=== PATIENT | male | born 2000 | race Asian ===

== ENCOUNTER 2022-04-11 04:00 | Inpatient (IN) | payer OTHER ==
[~2022-04-11] VITALS: Ht 152.4 cm; Wt 38.6 kg
[2022-04-11] VITALS (9 sets, daily range): BP systolic 104–141; BP diastolic 50–92
[~2022-04-11 04:00] MED LIST: BACL20TA4 GT; BEN50 GT; BISA-213 RC; CRAN450T5 GT; DIAZ5TAB8 GT; LEVO750T75 NG; MAGN400S60 PO; MERO1PIG IV; MIRABULK PO; MONT10TA35 GT; MULT9LIQ2 GT; OSC500 GT; ROB1 GT; SCOP0.333 TP; SIME80TA22 GT
--- NOTE | 2022-04-11 04:01 | NUR ---
BIBA TO BED #1
[2022-04-11] MEDS ORDERED: NACL 0.9% 1,000 ML IV SCH ×2 (04:15→05:35)
[2022-04-11] MEDS ORDERED: NACL 0.9% 1,000 ML IV ONE ×2 (04:15→10:30)
[2022-04-11] MEDS ORDERED: VANCOMYCIN 1,000 MG in DEXTROSE 5% 250 ML IV ONE (04:15)
[2022-04-11] MEDS ORDERED: PIPERACILLIN/TAZOBACTAM 3.375 GM in DEXTROSE 5% 50 ML IV ONE (04:15)
[2022-04-11] MEDS ORDERED: IBUPROFEN CHILDRENS 100 MG/5 ML UDC GT ONE (04:15)
--- NOTE | 2022-04-11 04:15 | NUR ---
DIMAS FROM [facility] C/O RAPID HR. PT WITH EXTENSIVE PMH ON VENT TO TRACH, G-TUBE IN PLACE. SKIN IS HOT TO TOUCH. MEDHX- TRACH TO VENT, ALLX- SULFA
--- NOTE | 2022-04-11 04:30 | NUR ---
20G IV ESTABLISHED RLE, LABS AND BLOOD CULTURES DRAWN.
[2022-04-11] MEDS ORDERED: ACETAMINOPHEN 650 MG SUPP RC ONE (04:55)
[2022-04-11] MEDS ORDERED: VANCOMYCIN 1,000 MG VIAL ONE (04:57)
[2022-04-11] MEDS ORDERED: PIPERACILLIN/TAZOBACTAM 3.375 GM VIAL IV ONE (04:58)
--- NOTE | 2022-04-11 04:58 | NUR ---
0402 PLACED PATIENT ON CARESCAPE VENT.ON AC MODE RR14 VT 400 PEEP 5 FIO2 28%. TRACH CARE DONE. PATIENT HAS A SIZE PORTEX 6 . NO SECRETIONS WHEN SXNED. ABG DRAWN. SEE RESULTS. NO CHANGES MADE ON VENT POST ABG
[2022-04-11 05:14] LABS: BASOPHILS % (AUTO) 0.4 % (0.0-2.0); EOSINOPHILS % (AUTO) 0.1 % (0.0-4.0); HEMATOCRIT 42.1 % (36-52); HEMOGLOBIN 14.1 g/dL (12.0-18.0); LYMPHOCYTES # (AUTO) 0.7 K/uL (2.0-11.5); LYMPHOCYTES % (AUTO) 10.3 % (20.5-51.1); MEAN CORPUSCULAR HEMOGLOBIN 33 pg (27-31); MEAN CORPUSCULAR HGB CONC 34 g/dL (33-37); MEAN CORPUSCULAR VOLUME 97.3 fL (80-94); MONOCYTES # (AUTO) 0.6 K/uL (0.8-1.0); MONOCYTES % (AUTO) 8.3 % (1.7-9.3); NEUTROPHILS # (AUTO) 5.5 K/uL (1.8-7.7); NEUTROPHILS % (AUTO) 80.9 % (42.2-75.2); PLATELET COUNT (AUTO) 465 K/uL (140-450); RED BLOOD CELL COUNT(AUTO) 4.33 MIL/uL (4.20-6.10); RED CELL DISTRIBUTION WIDTH 12.9 % (11.6-13.7); WHITE BLOOD COUNT (AUTO) 6.8 K/uL (4.8-10.8)
--- NOTE | 2022-04-11 05:30 | NUR ---
F/C INSERTED WITHOUT DIFFICULTY WITH IMMEDIATE RETURN MARINA COLORED URINE. URINE OBTAINED AND SENT TO LAB.
[2022-04-11] MEDS ORDERED: LORazepam 2 MG/ML VIAL IVP ONE (05:35)
[2022-04-11 05:41] LABS: PROTHROMBIN TIME 10.8 secs (10.8-13.4)
[2022-04-11 05:49] LABS: ALBUMIN 3.3 g/dL (3.4-5.0); ANION GAP 17.2 (8-16); CARBON DIOXIDE 26.6 mmol/L (21-32); POTASSIUM 3.8 mmol/L (3.5-5.1); TOTAL BILIRUBIN 0.4 mg/dL (0.0-1.0)
[2022-04-11 06:17] LABS: FREE T4 (FREE THYROXINE) 1.47 ng/dL (0.76-1.46); THYROID STIMULATING HORMONE 0.21 uIU/mL (0.34-3.74)
[2022-04-11 06:23] LABS: CKMB RELATIVE INDEX 0.3 (0.0-2.5); CREATINE KINASE MB 1.7 ng/mL (0-3.6)
[2022-04-11 06:31] LABS: APPEARANCE,URINE CLEAR (CLEAR); BILIRUBIN,URINE NEGATIVE (NEGATIVE); BLOOD, URINE TRACE-I (NEGATIVE); COLOR,URINE YELLOW (YELLOW); LEUKOCYTE ESTERASE ,URINE NEGATIVE (NEGATIVE); NITRITE, URINE NEGATIVE (NEGATIVE); UGLUCOSE NEGATIVE (NEGATIVE)
[2022-04-11 06:47] LABS: RBC,URINE 0-5 /HPF (0-5)
--- NOTE | 2022-04-11 06:47 | NUR ---
SPOKE WITH PTS MOTHER AND UPDATE GIVEN. SHE STATES SHE WILL NOT BE ABLE TO COME AND SEE HIM UNTIL TOMORROW.
[2022-04-11 06:48] LABS: HYALINE CASTS, URINE 0-3 /LPF (None Seen)
[2022-04-11] MEDS ORDERED: VANCOMYCIN PER PHARMACY MC PRN ×2 (07:20→11:10)
--- NOTE | 2022-04-11 07:44 | NUR ---
PT ON A VENT, RR 40S, O2 SAT 97% AT 28%, PEEP 8, PT CONSTANTLY MOVING, HR 140-160s, iv patent rle, lfa, sr up times2, will go to icu 4
--- NOTE | 2022-04-11 08:15 | NUR ---
RECEIVED BEDSIDE REPORT FROM EVELYN DE SANTIAGO RN. PT A&O X4. TRACH TO VENT FIO2 28%, VT 400, RR 14, PEEP 5. ST ON MONITOR 153. TEMP 103..4. G TUBE IN PLACE, CLAMPED. ROMERO IN PLCE TO GRAVITY, URINE CLEAR AND YELLOW. IV TO RT FOREARM 22G. LT FOREARM 20 G. RT LOWER LEG 22G. ALL SALINE LOCKED. SKIN INTACT, BILATERAL HEEL REDNESS. HOB ELEVATED, BED TO LOWEST POSITION, CALL LIGHT WITHIN REACH, WILL CONTINUE TO MONITOR.
--- NOTE | 2022-04-11 08:26 | NUR ---
barrett in place, urinary output 650 clear yellow urine
[2022-04-11] MEDS ORDERED: VANCOMYCIN 1,000 MG in DEXTROSE 5% 250 ML IV SCH (09:00)
[2022-04-11] MEDS ORDERED: ENOXAPARIN 40 MG/0.4 ML SYR SUBQ SCH (09:00)
[2022-04-11] MEDS: ENOXAPARIN 40 MG/0.4 ML SYR SUBQ SCH (09:17)
--- NOTE | 2022-04-11 10:00 | NUR ---
SEEN AND EXAMINED BY DR WILSON. UPDATED PT INFORMATION. ORDERED 1L NS BOLUS, CHEMISTRY PANEL 7, REPEAT LACTIC ACID.
[2022-04-11] MEDS: ACETAMINOPHEN 650 MG/20.3 ML UDC GT PRN (10:30)
[2022-04-11 10:52] LABS: ANION GAP 17.4 (8-16); CARBON DIOXIDE 21.7 mmol/L (21-32); CREATININE 0.8 mg/dL (0.6-1.3); POTASSIUM 3.1 mmol/L (3.5-5.1)
--- NOTE | 2022-04-11 11:10 | NUR ---
SEEN AND EXAMINED BY DR ROSE. UPDATED PT INFORMATION.
--- NOTE | 2022-04-11 11:12 | NUR ---
REPORTED CRITICAL LAB TO DR WILSON. SODIUM 161, POTASSIUM 3.1.
[2022-04-11] MEDS: FLUCONAZOLE 200 MG/NS PREMIX 100 ML IV SCH (11:47)
--- NOTE | 2022-04-11 13:15 | NUR ---
SEEN AND EXAMINED BY DR JOEDA. UPDATED PT INFORMATION. NO NEW ORDER.
[2022-04-11] MEDS: MEROPENEM 1,000 MG in NACL 0.9% 50 ML IV SCH ×2 (13:58→21:52)
--- NOTE | 2022-04-11 14:08 | NUR ---
RECEIVED DR STEVE LAW. ORDERED D/C NS, START D5 AT 100MLS/HR. Q4H CMP FOR AT LEAST 1 DAY. POTASSIUM CHLORIDE 20% LIQUID 40MEQ.
[2022-04-11] MEDS ORDERED: POTASSIUM CHLORIDE 20% 40 MEQ/15 ML UDC GT SCH (14:18)
[2022-04-11] MEDS: DEXTROSE 5% 1,000 ML IV SCH (14:25)
--- NOTE | 2022-04-11 17:30 | NUR ---
PT IN BED SEMI RELAX PT HR TACHY DUE TO PT HAVING A FEVER NO SOB NOTED MAINTAIN OXYGENATION AND VENTILATION ABOVE 92% WILL CONT TO MONITOR
[2022-04-11] MEDS: VANCOMYCIN 500 MG in DEXTROSE 5% 100 ML IV SCH ×2 (18:10→21:02)
--- NOTE | 2022-04-11 18:57 | NUR ---
PT SPO2 100% ON 28% FiO2. TITRATED FiO2 FROM 28% TO 25%. CURRENT SPO2 100%. PT TOLERATING WELL AT THIS TIME. NO RESPIRATORY DISTRESS NOTED AT THIS TIME. WILL CONTINUE TO MONITOR PT.
--- NOTE | 2022-04-11 18:59 | NUR ---
RECEIVED REPORT FROM AM SHIFT. PATIENT WAS SEEN AND ASSESSED. PATIENT IS TRACH WITH PORTEX SIZE 6 AND SECURED WITH TRACH TIE. PATIENT IS ON VENTILATOR SUPPORT. VENTILATOR PLUGGED IN RED OUTLET. VENTILATOR ALARMS SET APPROPRIATELY AND AUDIBLE TO ENVIRONMENT. AMBU BAG AT BEDSIDE. HEAD OF BED GREATER THAN 30 DEGREES. NOTICED ADEQUATE BILATERAL CHEST RISE AND FALL. PATIENT IS IN NO RESPIRATORY DISTRESS AT THIS TIME. VENT SETTINGS: AC/VC RR 14, VT 400, PEEP 5, FiO2 25% WITH SPO2 OF 100%. BILATERAL BREATH SOUNDS ON AUSCULTATION : UPPER LOBES: COARSE LOWER LOBES: COARSE. SUCTION: SMALL AMOUNT OF WHITE/YELLOW THICK SECRETIONS FROM TRACH TUBE AND SMALL WHITE THIN ORALLY.
--- NOTE | 2022-04-11 19:24 | NUR ---
ENDORSED TO CARTON WRAPPER PEPPI RN FOR CONTINUITY OF CARE. ALL QUESTIONS ANSWERED.
[2022-04-11] MEDS ORDERED: MEROPENEM 1,000 MG VIAL IV ONE (21:47)
[2022-04-12] VITALS (16 sets, daily range): BP systolic 103–142; BP diastolic 58–109
[2022-04-12 00:21] LABS: ALBUMIN 2.9 g/dL (3.4-5.0); ANION GAP 6.5 (8-16); CARBON DIOXIDE 29.5 mmol/L (21-32); CREATININE 0.5 mg/dL (0.6-1.3); TOTAL BILIRUBIN 0.9 mg/dL (0.0-1.0)
[2022-04-12] MEDS: ACETAMINOPHEN 650 MG/20.3 ML UDC GT PRN ×2 (01:15→14:43)
[2022-04-12] MEDS: DEXTROSE 5% 1,000 ML IV SCH (01:23)
[2022-04-12] MEDS ORDERED: KCL 20 MEQ/WATER INJ PREMIX 200 ML IV ONE (03:41)
[2022-04-12] MEDS: KCL 20 MEQ/WATER INJ PREMIX 200 ML IV SCH ×2 (03:45→06:57)
[2022-04-12 05:57] LABS: ANION GAP 11.7 (8-16); CARBON DIOXIDE 29.7 mmol/L (21-32); CREATININE 0.6 mg/dL (0.6-1.3); POTASSIUM 3.4 mmol/L (3.5-5.1)
--- NOTE | 2022-04-12 07:15 | NUR ---
RECEIVED BEDSIDE REPORT FROM FASHION BUYING INTERNSHIP PEPPI. AWAKE. RESPOND TO NAME. AC VC FIO2 25%, VT 400, RR 14, PEEP 5. ST MONITOR. TEMP 99.5, PULSE 112, BP 127/84, RR 25, O2 93%. IV TO RT LOWER LEG 22G, RUNNING KCL @ 50MLS/HR, REDNESS, SWELLING ON THE IV SITE. NPO. ROMERO IN PLACE TO GRAVITY, URINE CLEAR AND YELLOW. GENERALIZED WEAKNESS, BEDREST, HOB ELEVATED, BED TO LOW POSITION. CALL LIGHT WITHIN REACH. WILL CONTINUE TO MONITOR.
[2022-04-12] MEDS: VANCOMYCIN 500 MG in DEXTROSE 5% 100 ML IV SCH ×2 (08:00→16:24)
[2022-04-12] MEDS: ENOXAPARIN 40 MG/0.4 ML SYR SUBQ SCH (08:23)
[2022-04-12 08:55] LABS: BASOPHILS % (AUTO) 0.4 % (0.0-2.0); EOSINOPHILS % (AUTO) 0.5 % (0.0-4.0); HEMATOCRIT 37.6 % (36-52); HEMOGLOBIN 12.7 g/dL (12.0-18.0); LYMPHOCYTES # (AUTO) 2.7 K/uL (2.0-11.5); LYMPHOCYTES % (AUTO) 35.4 % (20.5-51.1); MEAN CORPUSCULAR HEMOGLOBIN 33 pg (27-31); MEAN CORPUSCULAR HGB CONC 34 g/dL (33-37); MEAN CORPUSCULAR VOLUME 96.6 fL (80-94); MONOCYTES % (AUTO) 12.8 % (1.7-9.3); NEUTROPHILS # (AUTO) 3.9 K/uL (1.8-7.7); NEUTROPHILS % (AUTO) 50.9 % (42.2-75.2); PLATELET COUNT (AUTO) 316 K/uL (140-450); RED BLOOD CELL COUNT(AUTO) 3.89 MIL/uL (4.20-6.10); RED CELL DISTRIBUTION WIDTH 12.8 % (11.6-13.7); WHITE BLOOD COUNT (AUTO) 7.7 K/uL (4.8-10.8)
[2022-04-12] MEDS: MEROPENEM 1,000 MG in NACL 0.9% 50 ML IV SCH ×3 (09:13→21:49)
--- NOTE | 2022-04-12 09:14 | NUR ---
PATIENT HAS BEEN SCREENED AND CATEGORIZED HIGH NUTRITION RISK. PATIENT WILL BE SEEN WITHIN 1-2 DAYS OF ADMISSION. 04/11/22-04/13/[address] REFERRAL RECEIVED FOR TF PATIENT.
[2022-04-12 09:15] LABS: ANION GAP 12.5 (8-16); CARBON DIOXIDE 29.2 mmol/L (21-32); CREATININE 0.5 mg/dL (0.6-1.3); POTASSIUM 3.7 mmol/L (3.5-5.1)
[2022-04-12] MEDS: FLUCONAZOLE 200 MG/NS PREMIX 100 ML IV SCH (10:39)
--- NOTE | 2022-04-12 11:07 | NUR ---
04/12/2022 RD INITIAL ASSESSMENT COMPLETED.PLEASE REFER TO NUTRITION ASSESSMENT UNDER CARE ACTIVITY FOR ESTIMATED NUTRITIONAL NEEDS. 1.WHEN/IF MEDICALLY APPROPRIATE, RECOMMEND VITAL AF 1.2 KENDRA WITH A GOAL RATE OF 50ML/HR -FWF 100ML Q8H -START AT 20 ML/HR AND INCREASE BY 20 ML Q4H PT TOLERATES UNTIL GOAL RATE IS REACHED. THIS WILL PROVIDE 1440 KCAL, 90 G PROTEIN, AND 1200ML VOLUME (973 ML FREE WATER) MEETING 100% OF PTS ESTIMATED ENERGY NEEDS; ADEQUATE. 2.MONITOR FOR GASTRIC RESIDUALS 3.RD TO FOLLOW-UP IN 2-3 DAYS PATIENT IS HIGH RISK. JOSE A JEAN RD
--- NOTE | 2022-04-12 13:17 | NUR ---
RD SPOKE WITH BOBBY RAMIREZ WITH TF RECOMMENDATION FOR VITAL AF 1.[address] ASKED WHO SAID IT WAS OKAY TO START ON VITAL AF 1.2.
[2022-04-12 13:23] LABS: ALBUMIN 3.2 g/dL (3.4-5.0); CARBON DIOXIDE 29.5 mmol/L (21-32); CREATININE 0.5 mg/dL (0.6-1.3); POTASSIUM 3.5 mmol/L (3.5-5.1); TOTAL BILIRUBIN 1.1 mg/dL (0.0-1.0)
--- NOTE | 2022-04-12 13:30 | NUR ---
FAMILY /MOM AT BEDSIDE. UPDATED PT INFORMATION.
[2022-04-12] MEDS ORDERED: LORazepam 2 MG/ML VIAL ONE (15:31)
--- NOTE | 2022-04-12 18:20 | NUR ---
DR OJEDA ROUNDING AT BEDSIDE. UPDATED PT INFORMATION. NO NEW ORDER.
--- NOTE | 2022-04-12 18:50 | NUR ---
DR ROSE ROUNDING AT BEDSIDE. UPDATED PT INFORMATION. NO NEW ORDER.
--- NOTE | 2022-04-12 19:15 | NUR ---
ENDORSED TO VASCULAR TECH PRADEEP ROSALES FOR CONTINUITY OF CARE.
--- NOTE | 2022-04-12 19:20 | NUR ---
REEIVED SILVESTRE ECHEVERRIA RN. PT IN STATED CONDITION. PT IS ON THR VENTILATOR VIA TRACH. WITH SETTING OF AC/VC RIO2 25%, TIDAL VOL 400 RATE 24, AND PEEP 5. HE IS TOLERATING THE VENTILATOR WELL HE WAS RUNNING AN ELEVATED TEMP PER REPORT. THE COOLING BLANKET IS OFF THE PATIENT, THE RCTAL TUBE IS STILL IN PLACE AND HIS TEMPERATURE IS READING 99.1 WILL LEAVE IN TACK FOR A COUPLE OF HOUR TO SEE IF THE TEMPERATURE WILL REMAIN BELOW 100. PT HAS A MALFUNCTIONING FEEDING PUMP. REQUTED A REPLACEMENT FROM TEXTURE ARTIST.. RODRICK HAS A ROMERO CATH IN PLACE DRAINING A SMALL AMOUNT
--- NOTE | 2022-04-12 21:00 | NUR ---
PT HAVING SHAKING EPISODE PER THE NURSE WHO CARED FOR PT THE NIGHT BEFORE STATES HE HAS INTERMITTENT SHAKING EPISODES. PT DOESN'T APPEAR TO BE IN DISTRESS DURING THE EPISODES.
[2022-04-13] VITALS (13 sets, daily range): BP systolic 100–186; BP diastolic 47–95
[2022-04-13] MEDS: VANCOMYCIN 500 MG in DEXTROSE 5% 100 ML IV SCH ×2 (00:19→07:29)
--- NOTE | 2022-04-13 01:30 | NUR ---
PT HAS FEET OVER SIDE RAIL AND HE IS LYING SIDEWAYS IN THE BED. PULLED UP AND REPOSITIONED, AND A PILLOW STUFFED IN THE SIDE RAIL TO PREVENT PT FROM SELF INJURY. HE'S NO LONGER ON COOLING MEASURES. HE PULLED THE PROBE CONNECTOR TO THE MACHINE APART . RECTAL PROBE REMOVED. HE HAS NOT CLOSED HIS EYES TONIGHT.
--- NOTE | 2022-04-13 02:35 | NUR ---
CONTINUED NOTE FOR 1919: OF CLEAR DARK YELLOW URINE. FEEDING PUMP CHANGED AND IS WORKING ADEQUATELY. PT IS VERY MOBILE. MOVING ALL OVER THE BED.
--- NOTE | 2022-04-13 04:06 | NUR ---
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 THIS EXPLAINS HES SHAKING EPISODES.
[2022-04-13] MEDS: MEROPENEM 1,000 MG in NACL 0.9% 50 ML IV SCH ×3 (05:11→21:00)
[2022-04-13 05:47] LABS: ANION GAP 9.7 (8-16); CARBON DIOXIDE 32.9 mmol/L (21-32); CREATININE 0.5 mg/dL (0.6-1.3); POTASSIUM 3.6 mmol/L (3.5-5.1)
--- NOTE | 2022-04-13 06:28 | NUR ---
PT CONTINUED TO HAVE SPASM X 3 TONIGHT. HE HAS NOT CLOSED HIS EYES AT ALL.
--- NOTE | 2022-04-13 07:15 | NUR ---
RECEIVED BEDSIDE REPORT FROM BERTA FERNÁNDEZ RN, FOR CONTINUITY OF CARE. PT A/OX0, NONVERBAL, PERRL, OPENS EYES TO VOICE AND ABLE TO MAINTAIN EYE CONTACT <10 SECONDS. DOES NOT FOLLOW COMMANDS. ST ON MONITOR. 20G TO L WRIST INFUSING NS TKO. NO EDEMA PRESENT. G TUBE IN PLACE INFUSING VITAL 1.2 TUBE FEEDING AT 50ML/HR WITH FWF 100ML Q8H. F/C TO GRAVITY DRAINING CLOUDY LIGHT YELLOW URINE. EXTREMITIES RIGID WITH INTERMITTENT SPASMS. STANDARD PRECAUTION. BED LOCKED AND IN LOWEST POSITION.
[2022-04-13 07:24] LABS: BASOPHILS % (AUTO) 0.4 % (0.0-2.0); EOSINOPHILS # (AUTO) 0.1 K/uL (0-0.4); EOSINOPHILS % (AUTO) 1.8 % (0.0-4.0); HEMATOCRIT 38.7 % (36-52); HEMOGLOBIN 13.3 g/dL (12.0-18.0); LYMPHOCYTES # (AUTO) 2.7 K/uL (2.0-11.5); MEAN CORPUSCULAR HEMOGLOBIN 33 pg (27-31); MEAN CORPUSCULAR HGB CONC 34 g/dL (33-37); MEAN CORPUSCULAR VOLUME 96.8 fL (80-94); MONOCYTES # (AUTO) 1.1 K/uL (0.8-1.0); MONOCYTES % (AUTO) 13.4 % (1.7-9.3); NEUTROPHILS % (AUTO) 50.4 % (42.2-75.2); PLATELET COUNT (AUTO) 302 K/uL (140-450); RED CELL DISTRIBUTION WIDTH 12.7 % (11.6-13.7); WHITE BLOOD COUNT (AUTO) 7.9 K/uL (4.8-10.8)
--- NOTE | 2022-04-13 08:40 | NUR ---
PT. WITH LOW MARLENE SCALE AT MODERATE TO HIGH RISK, CONTINUE TO FOLLOW PRESSURE INJURY PREVENTION INTERVENTIONS. -POSITIONING: TURN AND REPOSITION PATIENT Q 2H OR SOONER USE PILLOWS TO KEEP BONY PROMINENCES FROM DIRECT CONTACT WITH SURFACES USE REPOSITIONING WEDGES TO PROVIDE 30-DEGREE ANGLE FOR SIDE LYING POSITIONS OFFLOADING OR FOAM DRESSING TO ALL TUBING TO PREVENT MEDICAL DEVICES RELATED PRESSURE INJURY -RE-EVALUATING AND MANAGING INCONTINENCE MONITOR SKIN CONDITION DURING POSITION CHANGE DO NOT MASSAGE REDNESS, BONY PROMINENCES FREQUENT CARLOS-CARE AND PROVIDE BARRIER CREAMS PRN IF SOILING MOISTURE CONTROL BY OFFER BED CUMMINGS/URINAL /ABSORBENT PAD TO WICK AND HOLD MOISTURE KEEP SKIN DRY AND PROTECT FROM FRICTION -MANAGE FRICTION/SHEAR/MOBILITY KEEP HOB AT THE LOWEST LEVEL OF ELEVATION NO MORE THAN 30 DEGREE UNLESS OTHERWISE CONTRAINDICATED USE LIFT SHEET OR TRANSFER DEVICE TO MOVE PATIENT AND PREVENT LATERAL SHEER. PROTECT HEELS, ELBOWS BONY PROMINENCES WITH SKIN BERRIES OR FOAM DRESSING IF EXPOSED TO FRICTION OFFLOAD BILATERAL HEELS BY PLACING PILLOWS UNDER CALVES AT ALL TIMES, UNLESS OTHERWISE CONTRAINDICATED -PRESSURE REDISTRIBUTION SURFACE THERAPY ELAINE ISOFLEX MATTRESS -NUTRITION: PLEASE FOLLOW RD RECOMMENDATIONS AND OFFER NUTRITION SUPPLEMENTS IF ORDERED. PLEASE CONTACT WOUND CARE NURSE FOR ANY QUESTION AND CHANGE OF WOUND CONDITION.
[2022-04-13] MEDS: ENOXAPARIN 40 MG/0.4 ML SYR SUBQ SCH (09:04)
--- NOTE | 2022-04-13 10:15 | NUR ---
MEDICAL STUDENTS ROUNDING AT BEDSIDE. UPDATED PT STATUS.
[2022-04-13] MEDS: FLUCONAZOLE 200 MG/NS PREMIX 100 ML IV SCH (10:29)
--- NOTE | 2022-04-13 11:30 | NUR ---
SEEN AND EXAMINED BY Valery SHAY NO NEW ORDERS.
--- NOTE | 2022-04-13 12:00 | NUR ---
SEEN AND EXAMINED BY Pao REGAN TO TRANSFER TO TELE.
--- NOTE | 2022-04-13 14:20 | NUR ---
SEEN AND EXAMINED BY Traci ALFARO NO NEW ORDERS.
--- NOTE | 2022-04-13 15:47 | NUR ---
20G IV TO L WRIST INFILTRATED. DC IV AND STARTED NEW 22G IV TO L HAND. FLUSHES WELL.
[2022-04-13] MEDS ORDERED: VANCOMYCIN 750 MG in DEXTROSE 5% 250 ML IV SCH (16:00)
[2022-04-13] MEDS: VANCOMYCIN 750 MG in DEXTROSE 5% 250 ML IV SCH (16:03)
--- NOTE | 2022-04-13 16:30 | NUR ---
PT PULLED OUT IV. INSERTED NEW 20G IV TO R FA. FLUSHES WELL.
[2022-04-13] MEDS: ACETAMINOPHEN 650 MG/20.3 ML UDC GT PRN ×2 (17:06→23:59)
--- NOTE | 2022-04-13 17:20 | NUR ---
TEMP 100.3, ADMINISTERED ICE PACKS TO AXILLA AND NECK. ADMINISTERED PRN 650MG TYLENOL.
--- NOTE | 2022-04-13 17:45 | NUR ---
PT TRANSFERRED TO 121B WITH RT ASSISTANCE. ENDORSED BEDSIDE REPORT TO BOBBY HERRERA, FOR CONTINUITY OF CARE.
--- NOTE | 2022-04-13 17:49 | NUR ---
received pt from ICU - pt nonverbal, trach to vent, IVs intact, tolerating gtube feeding - vital 1.2 @ 50ml with 100ml water flush q8h, pt repositioned, skin checked - intact. VSS, no acute distress, safety measures maintained, call light within reach, pt near nurses station, bed alarm on and in lowest position. will continue to monitor. Addendum: 04/13/22 at 1758 by Agency Nurse BOBBY Tirado RN pt suctioned, and cooling measures provided.
--- NOTE | 2022-04-13 19:30 | NUR ---
RECEIVED BEDSIDE REPORT FROM DAY RN FOR CONTINUITY OF CARE.PT APHASIC, A&O X 4, OPENS EYES TO VOICE . DOES NOT FOLLOW COMMANDS. ST ON MONITOR. 20G TO R UPPER ARM, INFUSING NS TKO. NO EDEMA PRESENT. G TUBE IN PLACE INFUSING VITAL 1.2 TUBE FEEDING AT 50ML/HR WITH FWF 100ML Q8H. F/C TO GRAVITY DRAINING CLOUDY LIGHT YELLOW URINE. EXTREMITIES RIGID WITH INTERMITTENT SPASMS. BED LOCKED AND IN LOWEST POSITION. WILL CONTINUE TO MONITOR.
--- NOTE | 2022-04-13 21:30 | NUR ---
SCHEDULED MEDICATIONS GIVEN. PT TOLERATED WELL. WILL CONTINUE TO MONITOR.
[2022-04-13] MEDS ORDERED: MEROPENEM 1,000 MG VIAL IV ONE (21:52)
[2022-04-13] MEDS: LORazepam 2 MG/ML VIAL IVP PRN (23:59)
[2022-04-14] VITALS: BP 156/83
[2022-04-14 04:00] VITALS: BP 90/58
[2022-04-14] MEDS: VANCOMYCIN 750 MG in DEXTROSE 5% 250 ML IV SCH ×2 (04:57→16:49)
[2022-04-14] MEDS: MEROPENEM 1,000 MG in NACL 0.9% 50 ML IV SCH ×3 (05:21→20:21)
--- NOTE | 2022-04-14 05:30 | NUR ---
SCHEDULED MEDICATIONS GIVEN. PT TOLERATED WELL. WILL CONTINUE TO MONITOR.
[2022-04-14 05:37] LABS: ANION GAP 12.5 (8-16); CARBON DIOXIDE 30.9 mmol/L (21-32); CREATININE 0.6 mg/dL (0.6-1.3); POTASSIUM 3.4 mmol/L (3.5-5.1)
[2022-04-14] MEDS: ACETAMINOPHEN 650 MG/20.3 ML UDC GT PRN ×3 (05:53→22:16)
--- NOTE | 2022-04-14 06:24 | NUR ---
TYLENOL GIVEN. PT TEMP IS 100.6. WILL CONTINUE TO MONITOR.
--- NOTE | 2022-04-14 07:15 | NUR ---
ENDORSED TO DAY SHIFT RN FOR CONTINUITY OF CARE.. PT IS STABLE.
--- NOTE | 2022-04-14 07:25 | NUR ---
PT WAS TACHYCARDIC (131) I SPOKE TO NURSE WHO SAID HE WAS GIVEN METROPOLOL WHICH CAN INCREASE HIS HEART RATE. HIS BP WAS 90/58. PT WAS SUCTIONED AND HAD MODERATE AMOUNT OF THICK, BLOOD-TINGED SPUTUM. BREATHE SOUNDS WERE COARSE. Addendum: 04/14/22 at 0927 by Tawana Khanna RT SPUTUM WAS YELLOW
--- NOTE | 2022-04-14 07:30 | NUR ---
RECEIVED REPORT FROM [facility]. PT NONVERBAL. FIO2 @ 25%, TV 400, PEEP5, RR 14. O2 SAT @ 96%. RT AT BEDSDIE. ST ON THE MONITOR. HOB ELEVATED. NO SOB NOTED. VITAL AF 1.2 INFUSING @ 50 ML/HR WITH 100 ML WATER FLUSH Q 8HR. 0 ML RESIDUAL. ROMERO VIA GRAVITY. RFA #20 SL. NEEDS ALL MET AT THIS TIME. ALL SAFETY MEASURES IN PLACE.
--- NOTE | 2022-04-14 07:35 | NUR ---
SPOKE WITH MEDICAL STUDENT REGARDING POTASSIUM LEVEL, FEVER LAST NIGHT, AND PT WITH TACHYCARDIA. MEDICAL STUDENT STATES SHE WILL ENDORSE TO
[2022-04-14 08:00] VITALS: BP 100/55
[2022-04-14] MEDS: ENOXAPARIN 40 MG/0.4 ML SYR SUBQ SCH (09:04)
[2022-04-14] MEDS: LORazepam 2 MG/ML VIAL IVP PRN ×2 (10:08→20:21)
--- NOTE | 2022-04-14 10:10 | NUR ---
RFA #20 IV CATHETER PULLED OUT BY PT. NEW IV RESTART ON RFA #24 WITH POSITIVE BLOOD RETURN, FLUSH WITH NS, TEGADERM APPLIED. PT AGITATED, HR 130, BP 123/72. PRN ATIVAN GIVEN. HOB ELEVATED. GT FEEDING INFUSING. 5ML RESIDUAL. PT CONTRACTED. ALL SAFAETY MEASURES IN PLACE.
[2022-04-14 12:00] VITALS: BP 110/50
--- NOTE | 2022-04-14 15:30 | NUR ---
04/14/22 RD FOLLOW UP COMPLETED PLEASE REFER TO NUTRITION ASSESSMENT UNDER CARE ACTIVITY FOR ESTIMATED NUTRITIONAL NEEDS. 1. RECOMMEND INCREASING FREE WATER FLUSH FROM 100ML Q8H TO 100ML Q4H 2. CONTINUE VITAL AF 1.2 KENDRA @ 50ML/HR TOLERATED -WILL PROVIDE 1440 KCAL AND 90 G PROTEIN, MEETING 100% OF PTS ESTIMATED ENERGY NEEDS; ADEQUATE. 3. MONITOR NUTRITION-RELATED LAB VALUES 4. RD TO FOLLOW-UP IN 7 DAYS PATIENT IS LOW RISK. BERTHA LI RD
--- NOTE | 2022-04-14 15:38 | NUR ---
BP 101/58, PULSE 108, 02 @ 96%. PT REPOSITIONED, HOB ELEVATED. GT FEEDING INFUSING. 5ML RESIDUAL. NO GI SYMPTOMS. NEEDS ALL MET. ALL SAFETY MEASURES IN PLACE.
[2022-04-14 16:00] VITALS: BP 101/68
[2022-04-14] MEDS ORDERED: MAG SULF 2000 MG/WATER PREMIX 50 ML IV PRN (16:25)
[2022-04-14] MEDS ORDERED: POTASSIUM CHLORIDE 10 MEQ TABER PO PRN (16:25)
--- NOTE | 2022-04-14 19:25 | NUR ---
REPORT GIVEN TO NEGRO COTTER FOR CONTINUITY OF CARE.
[2022-04-14 20:00] VITALS: BP 112/67
--- NOTE | 2022-04-14 20:00 | NUR ---
RECEIVED IN BED ASSESSMENT COMPLETED PLN OF CARE REVIEWED TURNED AND REPOSITIONED PT TEMP 100.3 COOLING MEASURES APPLIED TYLENOL Q6H AND DUE AFTER 2200 WILL CONTINUE TO MONITOR AND ASSESS
--- NOTE | 2022-04-14 22:17 | NUR ---
TYLENOL GIVEN ORDERED AT THIS TIME FOR TEMP OF 100.3 WILL CONITNUE TO MONITOR AND ASSESS PT GIVEN ATIVAN FOR RESLESSNESS AND AGITATION PT NOTED TO BE RESTING QUIETLY AT THIS TIME
[2022-04-15] VITALS: BP 110/62
[2022-04-15 04:00] VITALS: BP 116/64
[2022-04-15] MEDS: VANCOMYCIN 750 MG in DEXTROSE 5% 250 ML IV SCH ×2 (04:00→16:00)
[2022-04-15] MEDS: MEROPENEM 1,000 MG in NACL 0.9% 50 ML IV SCH ×3 (05:39→21:24)
--- NOTE | 2022-04-15 05:55 | NUR ---
PT RESTLESS AT THIS TIME NOTED TO BE SOMEWHAT AGITATED HR AT 158 ATIVAN GIVEN ORDERED MD MADE AWARE WILL CONITNUE TO MONITOR AND ASSESS
[2022-04-15] MEDS: LORazepam 2 MG/ML VIAL IVP PRN (06:00)
[2022-04-15 06:28] LABS: ANION GAP -5.8 (8-16); CREATININE 0.6 mg/dL (0.6-1.3); POTASSIUM 3.2 mmol/L (3.5-5.1)
[2022-04-15] MEDS: ENOXAPARIN 40 MG/0.4 ML SYR SUBQ SCH (09:38)
[2022-04-15 10:07] VITALS: BP 131/70
[2022-04-15 10:27] LABS: ANION GAP 14.8 (8-16); CARBON DIOXIDE 29.7 mmol/L (21-32); CREATININE 0.6 mg/dL (0.6-1.3); POTASSIUM 3.5 mmol/L (3.5-5.1)
[2022-04-15] MEDS: PROPRANOLOL 20 MG TAB PO SCH (11:08)
[2022-04-15 19:03] VITALS: BP 131/70
--- NOTE | 2022-04-15 19:49 | NUR ---
GET THE REPORT FROM MORNING NURSE SHANIQUE, PATIENT IS LYING ON BED, PATIENT IS ON TRACH TO VENT MODE: AC/AV, FIO2: 25%,VT: 400ML, RATE :14/MIN, PEEP:5,PATIENT IS NON VERBAL, PATIENT HAS ROMERO CATHETER ARE IN PLACE, PATIENT HAS G TUBE IN PLACE FUNCTIONING WELL , ALL FALL PRECAUTION MEASURE ARE IN PLACE, CALL LIGHT IS WITHIN THE REACH, WILL CONTINUE TO MONITOR PATIENT.
[2022-04-15 20:00] VITALS: BP 103/53
--- NOTE | 2022-04-15 20:02 | NUR ---
MORNING NURSE SHANIQUE IS REPORTED THAT DR NUNEZ IS AWARE OF PATIENT HEART RATE IS HIGH AND HE SAID HIS BEEN LIKE THAT NO NEW ORDER, CALL LIGHT IS WITHIN THE REACH, WILL CONTINUE TO MONITOR PATIENT.
--- NOTE | 2022-04-15 20:10 | NUR ---
SUCTION AND REPOSITION THE PATIENT WITH HELP OF GLASS SELECTOR, WILL CONTINUE TO MONITOR PATIENT.
--- NOTE | 2022-04-15 21:25 | NUR ---
PATIENT IS LYING ON BED, NO ANY RESPIRATORY DISTRESS NOTED AT THIS TIME, VITAL SIGN IS WITHIN THE NORMAL RANGE, ALL SCHEDULE MEDICATION IS GIVEN PER DOCTOR ORDER, CALL LIGHT IS WITHIN THE REACH, WILL CONTINUE TO MONITOR PATIENT.
--- NOTE | 2022-04-15 23:00 | NUR ---
SUCTION AND REPOSITION THE PATIENT WITH HELP OF NURSE MAGANA WILL CONTINUE TO MONITOR PATIENT.
[2022-04-16] VITALS: BP 117/81
--- NOTE | 2022-04-16 00:13 | NUR ---
SUCTION AND REPOSITION THE PATIENT WITH HELP OF PETROLEUM INSPECTOR, WILL CONTINUE TO MONITOR PATIENT.
--- NOTE | 2022-04-16 00:15 | NUR ---
PATIENT IS LYING ON BED, HEAD OF BED IS ELEVATED, VITAL SIGN IS WITHIN THE NORMAL RANGE, NO ANY RESPIRATORY DISTRESS IS NOTED AT THIS TIME, SUCTION AND REPOSITION THE PATIENT, CALL LIGHT IS WITHIN THE REACH, WILL CONTINUE TO MONITOR PATIENT.
[2022-04-16] MEDS: VANCOMYCIN 750 MG in DEXTROSE 5% 250 ML IV SCH ×2 (03:43→16:19)
[2022-04-16 04:00] VITALS: BP 110/80
--- NOTE | 2022-04-16 04:03 | NUR ---
REPOSITION AND SUCTION THE PATIENT WITH HELP OF FARM EQUIPMENT ENGINE MECHANIC,MOUTH CARE IS GIVEN TO PATIENT, PATIENT IV IS INFILTRATED ,INSERTED NEW IV ON RIGHT FOREARM 24 GAUGE , VITAL SIGN IS WITHIN THE NORMAL RANGE, NO ANY RESPIRATORY DISTRESS NOTED AT THIS TIME, CALL LIGHT IS WITHIN THE REACH, WILL CONTINUE TO MONITOR PATIENT.
[2022-04-16] MEDS: MEROPENEM 1,000 MG in NACL 0.9% 50 ML IV SCH (05:29)
[2022-04-16 06:46] LABS: ANION GAP 9.5 (8-16); CREATININE 0.7 mg/dL (0.6-1.3); POTASSIUM 3.5 mmol/L (3.5-5.1)
--- NOTE | 2022-04-16 07:02 | NUR ---
GAVE THE REPORT TO THE MORNING NURSE SHANIQUE FOR CONTINUOS OF CARE, PATIENT IS STABLE.
[2022-04-16] MEDS: ACETAMINOPHEN 650 MG/20.3 ML UDC GT PRN ×2 (07:50→15:13)
[2022-04-16] MEDS: LORazepam 2 MG/ML VIAL IVP PRN ×2 (07:51→23:10)
[2022-04-16 08:00] VITALS: BP 93/54
[2022-04-16] MEDS: PROPRANOLOL 20 MG TAB PO SCH ×2 (09:34→21:43)
[2022-04-16] MEDS: ENOXAPARIN 40 MG/0.4 ML SYR SUBQ SCH (09:35)
[2022-04-16 12:00] VITALS: BP 119/83
[2022-04-16] MEDS ORDERED: diazePAM 5 MG TAB PEG PRN (12:35)
[2022-04-16] MEDS: MEROPENEM 1,000 MG in NACL 0.9% 100 ML IV SCH ×2 (13:00→21:26)
[2022-04-16] MEDS: methIMAzole 5 MG TAB PO SCH ×2 (13:20→21:43)
[2022-04-16] MEDS: diazePAM 5 MG TAB PEG PRN (15:12)
[2022-04-16 16:00] VITALS: BP 110/80
--- NOTE | 2022-04-16 18:38 | NUR ---
AM AND PM CARE DONE. ALL MEDS GIVEN, PRN MEDS FOR HYPERTHERMIA GIVEN. PATIENT IS STABLE AT THE END OF THE SHIFT WITH HR RANGES FROM 100 TO 110. TEMPERATURE WENT DOWN TO 99.6. WILL ENDORSE TO THE NEXT SHIFT AND WILL CONTINUE TO MONITOR
--- NOTE | 2022-04-16 19:36 | NUR ---
GET THE REPORT FROM MORNING NURSE SHANIQUE, PATIENT IS LYING ON BED, PATIENT IS ALERT ORIENTED X 1 , ALL FALL PRECAUTION MEASURE ARE IN PLACE, CALL LIGHT IS WITHIN THE REACH, WILL CONTINUE TO MONITOR PATIENT.
[2022-04-16 20:00] VITALS: BP 126/79
--- NOTE | 2022-04-16 21:30 | NUR ---
SUCTION AND REPOSITION THE PATIENT WITH HELP OF PLACEMENT MANAGER, WILL CONTINUE TO MONITOR PATIENT.
--- NOTE | 2022-04-16 21:51 | NUR ---
OLD IV IS INFILTRATED NEW IV INSERTED ON RIGHT FOREARM 22 GAUGE, CALL LIGHT IS WITHIN THE REACH, WILL CONTINUE TO MONITOR PATIENT.
--- NOTE | 2022-04-16 23:10 | NUR ---
PATIENT WAS ANXIOUS ,GAVE ATIVAN 2MG IV PRN PER DOCTOR ORDER,VITAL SIGN IS WITHIN THE NORMAL RANGE, CALL LIGHT IS WITHIN THE REACH, WILL CONTINUE TO MONITOR PATIENT.
[2022-04-17] VITALS: BP 115/50
--- NOTE | 2022-04-17 00:13 | NUR ---
SUCTION AND REPOSITION THE PATIENT WITH HELP OF DIE GRINDER, VITAL SIGN IS WITHIN THE NORMAL RANGE, NO ANY RESPIRATORY DISTRESS NOTED AT THIA TIME, CALL LIGHT IS WITHIN THE REACH, WILL CONTINUE TO MONITOR PATIENT.
--- NOTE | 2022-04-17 03:39 | NUR ---
SUCTION AND REPOSITION THE PATIENT WITH HELP OF MENTAL HEALTH TECHNICIAN, WILL CONTINUE TO MONITOR PATIENT.
[2022-04-17] MEDS: VANCOMYCIN 750 MG in DEXTROSE 5% 250 ML IV SCH ×2 (03:44→16:29)
[2022-04-17 04:00] VITALS: BP 128/65
[2022-04-17] MEDS: methIMAzole 5 MG TAB PO SCH ×3 (04:47→21:25)
[2022-04-17] MEDS: PROPRANOLOL 20 MG TAB PO SCH ×3 (04:48→21:25)
[2022-04-17] MEDS: MEROPENEM 1,000 MG in NACL 0.9% 100 ML IV SCH ×3 (04:48→21:30)
--- NOTE | 2022-04-17 07:17 | NUR ---
GAVE THE REPORT TO MORNING NURSE TAMIR FOR CONTINUOS OF CARE, PATIENT IS STABLE.
[2022-04-17 08:00] VITALS: BP 90/53
[2022-04-17] MEDS: ENOXAPARIN 40 MG/0.4 ML SYR SUBQ SCH (08:48)
[2022-04-17] MEDS: LORazepam 2 MG/ML VIAL IVP PRN (11:50)
[2022-04-17 12:00] VITALS: BP 128/54
[2022-04-17 16:00] VITALS: BP 120/53
--- NOTE | 2022-04-17 19:25 | NUR ---
IV SITE R ARM INFILTRATED - REDNESS AND SWELLING NOTED AT IV SITE . REMOVE IV NEEDLE INTACT AND MIN. BLEEDING . WILL INSERT NEW ONE . FOUND THERE IS REDNESS ON THE R LOWER LEG - WILL PUT CLOTH PAD ON SIDE RAIL NEAR ON R LEG TO PROTECT THE LEG , OLD BRUISES ON L ARM . ROMERO CATH INTACT AND PATENT DRAINING CLEAR U.O . FLACC 0 , MAINTAIN 30 DEG HEAD ELEVATION TO PREVENT ASPIRATION , WILL CONT TO MONITOR .
[2022-04-17 20:00] VITALS: BP 123/85
--- NOTE | 2022-04-17 20:00 | NUR ---
G TUBE TOLERATING - W/ 10 CC FEEDING RESIDUAL - WILL GIVE SCHED MEDS / GT . JENELLE CONT. TO MONITOR
--- NOTE | 2022-04-17 21:24 | NUR ---
BP 122/70 , HR 115 - WILL GIVE SCHED . MEDS .
[2022-04-18] VITALS: BP 114/72
[2022-04-18] MEDS: VANCOMYCIN 750 MG in DEXTROSE 5% 250 ML IV SCH ×2 (03:18→03:35)
--- NOTE | 2022-04-18 03:30 | NUR ---
CLARIFYING THE SCHEDULE OF VANCOCIN TO PHARMACIST - BEFORE I WILL GIVE THE MED . Addendum: 04/18/22 at 0334 by Yaneli Villafana RN PER PHARMACIST MARITZA - I HAVE VANCOCIN SCHEDULE AT 4AM TODAY - PER HIM I MAY GIVE IT NOW OF 4AM .
[2022-04-18 04:00] VITALS: BP 123/80
--- NOTE | 2022-04-18 04:00 | NUR ---
ROUNDS , JAZMINE S/SX OF ACUTE DISTRESS NOTED , ON O2 SAT MONITORING - O2 SAT WNL . WILL CONT. TO MONITOR
--- NOTE | 2022-04-18 05:20 | NUR ---
HR 120 , BP 130/67 - WILL GIVE SCAHED . PHYLLIS NORWOOD / SHRUTI , ON TELE MONITOR , WILL CONT. TO MONITOR . Addendum: 04/18/22 at 0525 by Yaneli Villafana RN THE WORD SCAHED IN THE ABOVE NURSE'S NOTE IS AN ERROR ENTRY , INSTEAD OF SCHED - RIMA
[2022-04-18] MEDS: PROPRANOLOL 20 MG TAB PO SCH ×3 (05:26→21:19)
[2022-04-18] MEDS: methIMAzole 5 MG TAB PO SCH ×3 (05:26→21:18)
[2022-04-18] MEDS: MEROPENEM 1,000 MG in NACL 0.9% 100 ML IV SCH (06:10)
--- NOTE | 2022-04-18 06:50 | NUR ---
RECEIVED PT ON ACVC 400,RR14,+5,25%. VENT PLUGGED INTO RED OUTLET, WHEELS ARE LOCKED, AMBUBAG AT BEDSIDE, ALARMS ARE SET AND AUDIBLE.
--- NOTE | 2022-04-18 06:59 | NUR ---
RT AT BEDSIDE , ON TELE MONITOR - HR 70'S - WILL CONT. TO MONITOR
--- NOTE | 2022-04-18 07:20 | NUR ---
endorsed pt for cont. of care .
[2022-04-18 08:00] VITALS: BP 114/85
[2022-04-18] MEDS: ENOXAPARIN 40 MG/0.4 ML SYR SUBQ SCH (08:44)
[2022-04-18] MEDS ORDERED: TOBRAMYCIN PER PHARMACY MC PRN (09:45)
[2022-04-18] MEDS ORDERED: TOBRAMYCIN IV SCH (11:00)
[2022-04-18] MEDS ORDERED: DEXTROSE 5% IV SCH (11:00)
[2022-04-18 12:00] VITALS: BP 95/72
[2022-04-18] MEDS: LORazepam 2 MG/ML VIAL IVP PRN (13:46)
[2022-04-18 16:00] VITALS: BP 100/70
[2022-04-18] MEDS ORDERED: VANCOMYCIN 750 MG in DEXTROSE 5% 250 ML IV SCH (16:00)
[2022-04-18 19:01] LABS: BASOPHILS # (AUTO) 0.1 K/uL (0.00-0.22); BASOPHILS % (AUTO) 0.8 % (0.0-2.0); EOSINOPHILS # (AUTO) 0.2 K/uL (0-0.4); EOSINOPHILS % (AUTO) 2.8 % (0.0-4.0); HEMATOCRIT 39.6 % (36-52); HEMOGLOBIN 13.4 g/dL (12.0-18.0); LYMPHOCYTES # (AUTO) 2.4 K/uL (2.0-11.5); LYMPHOCYTES % (AUTO) 34.4 % (20.5-51.1); MEAN CORPUSCULAR HEMOGLOBIN 33 pg (27-31); MEAN CORPUSCULAR HGB CONC 34 g/dL (33-37); MEAN CORPUSCULAR VOLUME 97.3 fL (80-94); MONOCYTES # (AUTO) 1.1 K/uL (0.8-1.0); MONOCYTES % (AUTO) 16.6 % (1.7-9.3); NEUTROPHILS # (AUTO) 3.1 K/uL (1.8-7.7); NEUTROPHILS % (AUTO) 45.4 % (42.2-75.2); PLATELET COUNT (AUTO) 488 K/uL (140-450); RED BLOOD CELL COUNT(AUTO) 4.07 MIL/uL (4.20-6.10); RED CELL DISTRIBUTION WIDTH 13.1 % (11.6-13.7); WHITE BLOOD COUNT (AUTO) 6.9 K/uL (4.8-10.8)
--- NOTE | 2022-04-18 19:10 | NUR ---
RECEIVED BEDSIDE REPORT FROM DAY SHIFT SHIFT RN FOR CONTINUITY OF CARE. PT IS NON VERBAL. PT IS TRACH TO VENT. SETTINGS: RT 14, VT 400, PEEP 5, FIO2 25%. PT HAS GTUBE WITH FEEDING: VITAL AF 50 CC/HR, 100 Q4H WATER FLUSH. PT HAS FC DRAINING CLEAR YELLOW URINE. BED AT THE LOWEST POSITION. HEAD OF THE BED RAISED. WILL CONTINUE TO MONITOR THE PT.
[2022-04-18 19:17] LABS: ANION GAP 11.3 (8-16); CARBON DIOXIDE 31.6 mmol/L (21-32); CREATININE 0.6 mg/dL (0.6-1.3); POTASSIUM 3.9 mmol/L (3.5-5.1)
[2022-04-18 20:00] VITALS: BP 106/67
--- NOTE | 2022-04-18 21:25 | NUR ---
SCHEDULE MEDICATIONS GIVEN. NO ADVERSE REACTION NOTED. WILL CONTINUE TO MONITOR THE PT.
--- NOTE | 2022-04-18 23:30 | NUR ---
RECEIVED REPORT FROM ELECTRONICS ASSEMBLER AND TESTER NURSE PRASANTH FOR CONTINUITY OF CARE. PATIENT IS NON-VERBAL. PATIENT IS ON TRACH TO VENT, BREATHING IS NORMAL WITH SYMMETRICAL RISE AND FALL OF CHEST. PATIENT'S IV IS A 24G LAC, RUNNING NS 5ML TKO. PATIENT IS ON TUBE FEEDING, VITAL AR AT 50ML/HR WITH 100ML WATER FLUSH Q4H. PATIENT IS CONTRACTED AND BEDBOUND. BED IS IN LOWEST POSITION, WHEELS LOCKED, CALL LIGHT IN PLACE. WILL CONTINUE TO OBSERVE PATIENT.
--- NOTE | 2022-04-18 23:30 | NUR ---
ENDORSED PT TO NIGHT BOBBY ZAPATA FOR CONTINUITY OF CARE. PT IS STABLE.
[2022-04-19] VITALS: BP 100/59
--- NOTE | 2022-04-19 00:45 | NUR ---
PATIENT'S 0000 VITALS WERE: BP 100/59, HR 113, O2 100, RR 19, TEMP 98.8. PATIENT WAS SLUMPED OVER IN BED TOWARD LEFT SIDE. PATIENT WAS REPOSITIONED TO SITTING UP POSITION. WILL CONTINUE TO OBSERVE PATIENT.
--- NOTE | 2022-04-19 03:00 | NUR ---
PATIENT HAS BEEN REPOSITIONED MANY TIMES, BUT CONTINUES TO SLUMP OVER TOWARD HIS LEFT SIDE. PATIENT IS ON CONSTANT MONITORING OF HR AND O2. O2 IS FLUCTUATING BETWEEN 86 - 94. REPOSITIONING PATIENT TO AN UPRIGHT POSITION HELPS O2 GO BACK UP. HR IS FREQUENTLY TACHY RANGING FROM 110 - 125. PATIENT'S BREATHING IS NORMAL WITH SYMMETRICAL RISE AND FALL OF CHEST. WILL CONTINUE TO OBSERVE PATIENT.
[2022-04-19 04:00] VITALS: BP 103/60
[2022-04-19] MEDS: PROPRANOLOL 20 MG TAB PO SCH ×3 (05:10→21:08)
[2022-04-19] MEDS: methIMAzole 5 MG TAB PO SCH ×3 (05:10→21:08)
--- NOTE | 2022-04-19 05:14 | NUR ---
OBTAINED 0400 VITALS, VITALS WERE: BP 103/60,HR 120, O2 92, RR 19, TEMP 98.7. ADMINISTERED 0500 MEDICATIONS VIA G-TUBE. PATIENT TOLERATED WELL. RESTARTED PATIENT'S FEEDING AFTER MEDICATION ADMINISTRATION. EMPTIED URINE 550ML. BED IS IN LOWEST POSITION, WHEELS LOCKED, CALL LIGHT IN PLACE. WILL CONTINUE TO OBSERVE PATIENT.
[2022-04-19 05:52] LABS: BASOPHILS # (AUTO) 0.1 K/uL (0.00-0.22); BASOPHILS % (AUTO) 0.9 % (0.0-2.0); EOSINOPHILS # (AUTO) 0.1 K/uL (0-0.4); EOSINOPHILS % (AUTO) 2.1 % (0.0-4.0); HEMATOCRIT 41.9 % (36-52); LYMPHOCYTES # (AUTO) 2.1 K/uL (2.0-11.5); LYMPHOCYTES % (AUTO) 31.2 % (20.5-51.1); MEAN CORPUSCULAR HEMOGLOBIN 33 pg (27-31); MEAN CORPUSCULAR HGB CONC 34 g/dL (33-37); MEAN CORPUSCULAR VOLUME 98.3 fL (80-94); MONOCYTES % (AUTO) 15.3 % (1.7-9.3); NEUTROPHILS # (AUTO) 3.4 K/uL (1.8-7.7); NEUTROPHILS % (AUTO) 50.5 % (42.2-75.2); PLATELET COUNT (AUTO) 454 K/uL (140-450); RED BLOOD CELL COUNT(AUTO) 4.26 MIL/uL (4.20-6.10); RED CELL DISTRIBUTION WIDTH 13.1 % (11.6-13.7); WHITE BLOOD COUNT (AUTO) 6.7 K/uL (4.8-10.8)
[2022-04-19 06:27] LABS: CARBON DIOXIDE 31.5 mmol/L (21-32); CREATININE 0.6 mg/dL (0.6-1.3); POTASSIUM 3.5 mmol/L (3.5-5.1)
--- NOTE | 2022-04-19 07:00 | NUR ---
VITAL AF FEEDING WAS CHANGED OUT, NEW FEEDING STARTED. PATIENT TOLERATED WELL. NEW FEEDING RUNNING VITAL AF 50CC WITH WATER FLUSH 100Q4. WILL ENDORSE CARE OF PATIENT TO DAY SHIFT NURSE.
[2022-04-19 08:00] VITALS: BP 101/57
--- NOTE | 2022-04-19 08:00 | NUR ---
ENDORSED TO DAY SHIFT NURSE SIOBHAN FOR CONTINUITY OF CARE. PATIENT IS STABLE.
[2022-04-19] MEDS: ENOXAPARIN 40 MG/0.4 ML SYR SUBQ SCH (09:32)
[2022-04-19] MEDS: LORazepam 2 MG/ML VIAL IVP PRN ×2 (11:09→17:54)
[2022-04-19] MEDS ORDERED: DEXTROSE 5% 1,000 ML IV SCH (11:30)
[2022-04-19 12:00] VITALS: BP 103/63
[2022-04-19 16:00] VITALS: BP 126/57
[2022-04-19 20:00] VITALS: BP 110/75
--- NOTE | 2022-04-19 21:07 | NUR ---
BP 112 / 77 , HR 123 - WILL GIVE SCHED INDIRAL AND TAPAZOLE /GT - ON TELE MONITOR . Addendum: 04/20/22 at 0107 by Yaneli Villafana RN THE WORD INDIRAL IN THE ABOVE NURSE'S NOTE IS AN ERROR , INSTEAD OF INDERAL - RIMA
--- NOTE | 2022-04-19 21:10 | NUR ---
HOT TO TOUCH , TEMP RE CHECK 100.2 F - WILL MEDICATE , AND WILL RENDER TSB .
[2022-04-19] MEDS: ACETAMINOPHEN 650 MG/20.3 ML UDC GT PRN (21:15)
--- NOTE | 2022-04-19 23:48 | NUR ---
at 2114 tylenol given thru gt bec. of t 100.2f - tsb done - latest temp now is 100.7f - inform dr. kim .
--- NOTE | 2022-04-19 23:53 | NUR ---
cont. tsb Addendum: 04/19/22 at 2353 by Yaneli Villafana RN padded the side rails - hx s2
[2022-04-20] VITALS: BP 112/60
[2022-04-20] MEDS: DEXTROSE 5% 1,000 ML IV SCH ×2 (00:42→09:44)
--- NOTE | 2022-04-20 00:47 | NUR ---
CLARIFYING TO PHARMACIST IF I WILL GIVE THE SCHED. TOBRAMYCIN BEC. I SAW GOLDEN X1 DOSE 04-18-22 - PER PHARMACIST GIVE THE TOBRAMYCIN WHICH SCHEDULE NOW MEANING GIVE THE TOBRAMYCIN .
[2022-04-20] MEDS: DEXTROSE 5% IV SCH (00:56)
[2022-04-20] MEDS: TOBRAMYCIN IV SCH (00:56)
--- NOTE | 2022-04-20 01:27 | NUR ---
TEMP RE CHECK 98.9 .F WILL CONT. TO MONITOR
[2022-04-20 04:00] VITALS: BP 117/60
--- NOTE | 2022-04-20 04:13 | NUR ---
INFILTRATED IV SITE AT L UPPER ARM , - REMOVE IV NEEDLE INTACT AND PATENT , MIN. BLEEDING , WILL INSERT NEW ONE .- WILL ENDORSE . Addendum: 04/20/22 at 0415 by Yaneli Villaafna RN THE IS OLD BRUISES ON THE L UPPER ARM AND R LOWER LEG - WILL ENDORSE . Addendum: 04/20/22 at 0757 by Yaneli Villafana RN INSERT NEW IV SITE ON THE R ARM G22 , PT TOLERATE THE PROCEDURE , MIN. BLEEDING .
--- NOTE | 2022-04-20 04:34 | NUR ---
TEMP RE CHECKED 100.3F , WILL MEDICATE AND TSB
--- NOTE | 2022-04-20 04:38 | NUR ---
BP 117/74 , O2 SAT 96% WILL CONT. TO MONITOR .
[2022-04-20] MEDS: ACETAMINOPHEN 650 MG/20.3 ML UDC GT PRN ×3 (04:39→22:14)
[2022-04-20] MEDS: methIMAzole 5 MG TAB PO SCH ×3 (04:39→22:13)
[2022-04-20] MEDS: PROPRANOLOL 20 MG TAB PO SCH ×3 (04:39→22:13)
--- NOTE | 2022-04-20 06:00 | NUR ---
ROUNDS , NO S/SX OF ACUTE DISTRESS NOTED WILL CONT. TO MONITOR
[2022-04-20 06:06] LABS: BASOPHILS # (AUTO) 0.1 K/uL (0.00-0.22); BASOPHILS % (AUTO) 0.8 % (0.0-2.0); EOSINOPHILS # (AUTO) 0.1 K/uL (0-0.4); EOSINOPHILS % (AUTO) 0.7 % (0.0-4.0); HEMATOCRIT 41.7 % (36-52); HEMOGLOBIN 14.2 g/dL (12.0-18.0); LYMPHOCYTES # (AUTO) 2.6 K/uL (2.0-11.5); LYMPHOCYTES % (AUTO) 28.4 % (20.5-51.1); MEAN CORPUSCULAR HEMOGLOBIN 34 pg (27-31); MEAN CORPUSCULAR HGB CONC 34 g/dL (33-37); MEAN CORPUSCULAR VOLUME 98.2 fL (80-94); MONOCYTES # (AUTO) 1.6 K/uL (0.8-1.0); MONOCYTES % (AUTO) 16.9 % (1.7-9.3); NEUTROPHILS # (AUTO) 4.9 K/uL (1.8-7.7); NEUTROPHILS % (AUTO) 53.2 % (42.2-75.2); PLATELET COUNT (AUTO) 479 K/uL (140-450); RED BLOOD CELL COUNT(AUTO) 4.24 MIL/uL (4.20-6.10); RED CELL DISTRIBUTION WIDTH 13.5 % (11.6-13.7); WHITE BLOOD COUNT (AUTO) 9.3 K/uL (4.8-10.8)
--- NOTE | 2022-04-20 07:30 | NUR ---
ENDORSED PT FOR CONT. OF Cont . W/ LATEST TEMP 98.8 F .
--- NOTE | 2022-04-20 07:30 | NUR ---
[facility] PT AFEBRILE, TRACH TO VENT. FIO2 @ 25%, VT 400, RR14, PEEP 5. TELE, ST. ROMERO VIA GRAVITY. RFA #22 SL. GT FEEDING WITH VITAL AF 1.2 @ 50 ML/HR. 5 ML RESIDUAL. H20 FLUSH 100ML/HR. NEEDS ALL MET AT THIS. SEIZURE PRECAUTIONS IN PLACE. ALL SAFETY MEASURES IN PLACE.
[2022-04-20 07:42] LABS: ANION GAP 13.6 (8-16); CARBON DIOXIDE 28.9 mmol/L (21-32); CREATININE 0.6 mg/dL (0.6-1.3); POTASSIUM 3.5 mmol/L (3.5-5.1)
[2022-04-20 08:00] VITALS: BP 107/66
[2022-04-20] MEDS: ENOXAPARIN 40 MG/0.4 ML SYR SUBQ SCH (08:13)
--- NOTE | 2022-04-20 08:46 | NUR ---
PT ASSESSED AT 6:55. BREATH SOUNDS WERE CLEAR AND NO DISTRESS NOTED. SX PT AND THERE WAS SCANT, WHITE, THIN SECRETIONS. hE TRACH DRESSINGS WERE CLEAN AND NOR REDNESS OR BREAKDOWN NOTED. ORAL CARE WAS DONE DUE TO THICK COATING ON TONGUE AND VERY DRY LIPS. PUT MOISTURIZER ON LIPS.
--- NOTE | 2022-04-20 09:30 | NUR ---
D5W @ 70 ML/HR STARTED ON RFA #22. PT REPOSITIONED. HOB ELEVATED. PT TOLERATED WELL. NEEDS ALL MET. ALL SAFETY MEASURES IN PLACE.
[2022-04-20 12:00] VITALS: BP 93/63
[2022-04-20] MEDS: diazePAM 5 MG TAB PEG PRN (12:03)
--- NOTE | 2022-04-20 13:46 | NUR ---
04/20/22 RD FOLLOW UP COMPLETED PLEASE REFER TO NUTRITION ASSESSMENT UNDER CARE ACTIVITY FOR ESTIMATED NUTRITIONAL NEEDS. 1. CONTINUE VITAL AF 1.2 KENDRA @ 50ML/HR TOLERATED -RECOMMEND INCREASING FWF TO 150ML Q4H D/T INCREASED SODIUM AND LIQUIDY STOOL -WILL PROVIDE 1440 KCAL AND 90 G PROTEIN, MEETING 100% OF PTS ESTIMATED ENERGY NEEDS; ADEQUATE. 2. MONITOR NUTRITION-RELATED LAB VALUES AND GI SYMPTOMS 3. RD TO FOLLOW-UP IN 3-5 DAYS PATIENT IS MODERATE RISK. BERTHA LI RD
[2022-04-20 16:00] VITALS: BP 106/62
--- NOTE | 2022-04-20 18:42 | NUR ---
PT REPOSITIONED. O2 SATURATION @ 98%. NO CHANGE IN VENT SETTINGS BY RT. HOB ELEVATED. GT FEEDING INFUSING. 0 ML RESIDUAL. PT TOLERATING WELL. TELE, SINUS TACH. NEEDS ALL MET. ALL SAFETY MEASURES IN PLACE.
--- NOTE | 2022-04-20 19:21 | NUR ---
BEDSIDE REPORT GIVEN TO [facility] NURSECHRISTY FOR CONTINUITY OF CARE.
--- NOTE | 2022-04-20 19:41 | NUR ---
O2 SAT 95% - VENTILATOR KEEP ALARMING - CHECK THE MACHINE , INTACT AND WELL CONNECTED TO TRACH - REFER TO RT - STAT . Addendum: 04/20/22 at 1941 by Yaneli Villafana RN PER RT SHE WILL CHECK THE PT AND THE MACHINE
[2022-04-20 20:00] VITALS: BP 118/62
--- NOTE | 2022-04-20 22:12 | NUR ---
BP 115/74 , HR 122 , T 100.2F - WILL MEDICATE
--- NOTE | 2022-04-20 23:15 | NUR ---
SLEEPING , HR 98 , ON TELE MONITOR , WILL CONT. TO MONITOR
[2022-04-21] VITALS (8 sets, daily range): BP systolic 93–130; BP diastolic 41–90
--- NOTE | 2022-04-21 05:45 | NUR ---
BP 125/84 , HR 111 - SCHED . MEDS TO BE GIVEN , WILL CONT. TO MONITOR .
[2022-04-21] MEDS: methIMAzole 5 MG TAB PO SCH ×3 (06:00→20:34)
[2022-04-21] MEDS: PROPRANOLOL 20 MG TAB PO SCH ×3 (06:00→20:34)
[2022-04-21 07:26] LABS: ANION GAP 9.9 (8-16); CARBON DIOXIDE 30.7 mmol/L (21-32); POTASSIUM 3.6 mmol/L (3.5-5.1)
[2022-04-21 07:27] LABS: CREATININE 0.6 mg/dL (0.6-1.3)
--- NOTE | 2022-04-21 07:34 | NUR ---
ENDORSED PT . FOR CONT. OF CARE .
[2022-04-21] MEDS: ENOXAPARIN 40 MG/0.4 ML SYR SUBQ SCH (08:36)
--- NOTE | 2022-04-21 09:36 | NUR ---
NURSES NOTE PATIENT A/OX1 , BED BOUND , ON GASTRIC TUBE FEEDING VITAL AF 1.2 RAINING 50CC /H , WITH ROMERO CATHETER SKIN INTACT , VSS , SINUS RHYTHM ON MONITOR , ON BIPAP , STILL UNDER OBSERVE .
--- NOTE | 2022-04-21 11:59 | NUR ---
REFERRAL PACKET SENT TO [facility] Addendum: 04/21/22 at 1323 by Isa BA referral packet sent to [facility]. spoke with Jd who reports patient accepted to room 6c, Dr Pérez following physician, call report number [phone] [facility] request form faxed to [facility] transport.
[2022-04-21] MEDS: TOBRAMYCIN IV SCH (12:12)
[2022-04-21] MEDS: DEXTROSE 5% IV SCH (12:12)
[2022-04-21] MEDS: DEXTROSE 5% 1,000 ML IV SCH (14:45)
--- NOTE | 2022-04-21 17:07 | NUR ---
UPDATE OF PATIENT : NO NEW , NO RESIDUAL NURSES NOTE PATIENT A/OX1 , BED BOUND , ON GASTRIC TUBE FEEDING VITAL AF 1.2 RAINING 50CC /H , WITH ROMERO CATHETER , RAINING DW 70CC/H SKIN INTACT , VSS , SINUS RHYTHM ON MONITOR , ON BIPAP , STILL UNDER OBSERVE .
--- NOTE | 2022-04-21 18:34 | NUR ---
UPDATE OF PATIENT IV FLUID REDUCE TO 50CC/H , FLUSHING GASTRIC TUBE INCRESED TO 250CCWATER Q4 HOURS .
--- NOTE | 2022-04-21 19:45 | NUR ---
report given to night nurse all question answer
--- NOTE | 2022-04-21 19:46 | NUR ---
RECEIVED REPORT FROM MORNING SHIFT NURSE. PT IS LYING ON THE BED, SLEEPING. PT IS AOX1, TRACH TO VENT WITH FIO2-25%, VT-400 RATE OF 14 AND PEEP ODF 5. PT HAS G-TUBE OF VITAL AF 1.2 500CC/HE WITH WATER FLUSH OF 250 EVERY 4 HRS. PT HAS ROMERO CATHETER AND PT HAS IV ON RIGHT FOREARM GAUGE 22 RUNNING WITH D5W AT 50CC/HR. PT SKIN IS INTACT. ALL SAFETY MEASURES IMPLEMENTED. BED IN LOW POSITION, BED WHEELS ON LOCKED AND CALL LIGHT WITHIN REACH.
--- NOTE | 2022-04-21 20:34 | NUR ---
TAPAZOLE WAS GIVEN TO PT PER MD ORDER. INDERAL WAS HOLD DUE TO LOW BP OF 100/66. ALL SAFETY MEASURES IMPLEMENTED. BED IN LOW POSITION, BED WHEELS ON LOCKED AND CALL LIGHT WITHIN REACH.
--- NOTE | 2022-04-21 22:00 | NUR ---
PT WAS GIVEN CRACKERS PER PT REQUEST. NO S/S OF RESPIRATORY DISTRESS NOTED AND PT DENIES PAIN AT THIS TIME. ALL SAFETY MEASURES IMPLEMENTED. BED IN LOW POSITION, BED WHEELS ON LOCKED AND CALL LIGHT WITHIN REACH. Addendum: 04/22/22 at 0100 by Sonja Borges RN NAVID PT.. IT SHOULD BE ON PT JIN SOFIA ON ROOM 122B.
--- NOTE | 2022-04-21 22:01 | NUR ---
RT GONZÁLEZ CHANGED THE VENT FIO2 TO 28% FROM 24% DUE TO DECREASING SPO2.
[2022-04-22] VITALS: BP 113/68
--- NOTE | 2022-04-22 | NUR ---
PT IS SLEEPING. CHEST RISE AND FALL SYMMETRICALLY NOTED. RESPIRATION IS EVEN AND UNLABORED. ALL SAFETY MEASURES IMPLEMENTED. BED IN LOW POSITION, BED WHEELS ON LOCKED AND CALL LIGHT WITHIN REACH.
--- NOTE | 2022-04-22 02:00 | NUR ---
MORNING CARE WAS DONE TO PT. CLEANED AND CHANGED PT'S LINENS, GOWNS AND CHUCKS. ORAL CARE WAS ALSO DONE TO PT. ALL SAFETY MEASURES IMPLEMENTED. BED IN LOW POSITION, BED WHEELS ON LOCKED AND CALL LIGHT WITHIN REACH.
[2022-04-22 04:00] VITALS: BP 103/72
[2022-04-22] MEDS: PROPRANOLOL 20 MG TAB PO SCH ×3 (04:37→22:36)
[2022-04-22] MEDS: methIMAzole 5 MG TAB PO SCH ×3 (04:39→22:35)
--- NOTE | 2022-04-22 04:39 | NUR ---
TAPAZOLE WAS GIVEN TO PT PER MD ORDER. INDERAL WAS HOLD DUE TO LOW BP OF 103/72. ALL SAFETY MEASURES IMPLEMENTED. BED IN LOW POSITION, BED WHEELS ON LOCKED AND CALL LIGHT WITHIN REACH.
--- NOTE | 2022-04-22 06:15 | NUR ---
WEIGHT GUESSER INDY, WILL COME LATER FOR BLOOD WITHDRAWAL SAMPLE FOR THE PT BECAUSE PT IS HARD TO GET BLOOD SAMPLE.
--- NOTE | 2022-04-22 07:22 | NUR ---
PT IS STABLE. ENDORSED PT TO MORNING SHIFT NURSE FOR CONTINUITY OF CARE.
[2022-04-22 09:13] LABS: ANION GAP 9.7 (8-16); CARBON DIOXIDE 31.7 mmol/L (21-32); CREATININE 0.4 mg/dL (0.6-1.3); POTASSIUM 3.4 mmol/L (3.5-5.1)
[2022-04-22] MEDS: DEXTROSE 5% 1,000 ML IV SCH (10:40)
[2022-04-22] MEDS: ENOXAPARIN 40 MG/0.4 ML SYR SUBQ SCH (10:41)
[2022-04-22 11:51] LABS: BASOPHILS % (AUTO) 0.4 % (0.0-2.0); EOSINOPHILS # (AUTO) 0.2 K/uL (0-0.4); EOSINOPHILS % (AUTO) 2.3 % (0.0-4.0); HEMATOCRIT 38.4 % (36-52); HEMOGLOBIN 12.9 g/dL (12.0-18.0); LYMPHOCYTES # (AUTO) 1.9 K/uL (2.0-11.5); LYMPHOCYTES % (AUTO) 18.2 % (20.5-51.1); MEAN CORPUSCULAR HEMOGLOBIN 33 pg (27-31); MEAN CORPUSCULAR HGB CONC 34 g/dL (33-37); MEAN CORPUSCULAR VOLUME 97.9 fL (80-94); MONOCYTES % (AUTO) 9.8 % (1.7-9.3); NEUTROPHILS # (AUTO) 7.2 K/uL (1.8-7.7); NEUTROPHILS % (AUTO) 69.3 % (42.2-75.2); PLATELET COUNT (AUTO) 325 K/uL (140-450); RED BLOOD CELL COUNT(AUTO) 3.93 MIL/uL (4.20-6.10); RED CELL DISTRIBUTION WIDTH 13.9 % (11.6-13.7); WHITE BLOOD COUNT (AUTO) 10.3 K/uL (4.8-10.8)
[2022-04-22] MEDS ORDERED: POTASSIUM CHLORIDE 20% 40 MEQ/15 ML UDC GT SCH (12:00)
--- NOTE | 2022-04-22 19:15 | NUR ---
RECEIVED REPORT FROM MORNING SHIFT NURSE NAMED LETA. PT IS LYING ON THE BED, SLEEPING. PT IS AOX1, TRACH TO VENT WITH FIO2-28%, VT-400 RATE OF 14 AND PEEP OF 5. PT HAS G-TUBE OF VITAL AF 1.2 500CC/HE WITH WATER FLUSH OF 250 EVERY 4 HRS. PT HAS ROMERO CATHETER AND PT HAS IV ON RIGHT FOREARM GAUGE 22, SALINE LOCK. PT SKIN IS INTACT. PT IS ON AGONAL BREATHING, PULSE OF 165 WITH BP 77/33 AND TEMP- 97.6 ALL SAFETY MEASURES IMPLEMENTED. BED IN LOW POSITION, BED WHEELS ON LOCKED AND CALL LIGHT WITHIN REACH.
--- NOTE | 2022-04-22 19:20 | NUR ---
RECEIVED REPORT FROM BOBBY RAMIREZ. PT IS WRAPPED COCOON STYLE IN BLANKETS. ON ASSESSMENT PT'S TEM[PERATURE IS 100.3COVERS REMOVED AND PT GIVEN ICEPACKS. PT HAS A RED RASH ON HER FACE, NECK, AND UPPER CHEST . ON CHECKING THE EXT IT APPEARS FRECKLES ON THE ARMS AND LEGS. PT IS MUMBLING INCOHERENTLY WITH HER EYES CLOSED. D5W HUNG TO RUN AT 125CC/HOUR AT 1930 IV ACCESS IS IN THE LEFT HAND A 20 GAUGE.
--- NOTE | 2022-04-22 19:38 | NUR ---
NOTIFIED DR. MAIER DUE PT HAS PULSE RUNNING AT 160-165 WITH AGONAL BREATHING, T- 97.8 BP- 77/33. DR. MAIER ORDER 2L BOLUS NS AND TRANSFER TO ICU. ORDER WAS MADE AND CARRIED OUT.
[2022-04-22 19:40] VITALS: BP 77/33
--- NOTE | 2022-04-22 19:40 | NUR ---
FOUND PATIENT DIAPHORETIC, AND TACHYCARDIAC. PATIENT WAS SATING 99% ON VENT SETTINGS AC 400 F14 +5 25% FIO2. BREATH SOUNDS WERE CLEAR. BUT PATIENT WAS IN OBVIOUS DISTRESS AND WAS AWAITING TRANSPORT TO ICU. CONTINUED MONITORING PATIENT UNTIL TRANSPORT.
--- NOTE | 2022-04-22 19:45 | NUR ---
INSERTED NEW IV ON LEFT FOREARM GAUGE 20 DUE TO INFILTRATION. IV IS NOW PATENT AND INTACT.
[2022-04-22 20:00] VITALS: BP_SYST 77; BP_SYST 82; BP_DIAS 33; BP_DIAS 47
--- NOTE | 2022-04-22 20:00 | NUR ---
GAVE REPORT TO ICU NURSE TIAN FOR PT TRANSFER PER DOCTOR ORDER DUE TO HYPOTENSION AND TACHYCARDIA
--- NOTE | 2022-04-22 20:30 | NUR ---
PATIENT TRANSPORTED TO ICU ON VENTILATOR WITH O2 TANK. AMBU BAG PLUGGED IN AND AT VENTILATOR DURING TRANSPORT. ONCE IN ICU VENT WAS PLUGGED INTO RED OUTLET AND OXYGEN SOURCE FLOWMETER. AMBU AND SUCTION AT BEDSIDE. WILL CONTINUE TO MONITOR THE PATIENT.
--- NOTE | 2022-04-22 20:30 | NUR ---
TEMPERATURE IS NOW 98.5 AXILLARY. PT APPEARS COMFORTABLE.
--- NOTE | 2022-04-22 20:31 | NUR ---
TRANSFERRED TO ICU, RECEIVED BY NURSE LAMAS WITH RT ON TRANSPORT. ALL THE THINGS AND CHART OF THE PT WAS GIVEN.
[2022-04-22] MEDS ORDERED: NACL 0.9% 2,000 ML IV ONE (20:35)
--- NOTE | 2022-04-22 20:35 | NUR ---
CALLED PT'S AUTHORIZED [employer] NAMED STAN MOSELEY AND SANTY MOSELEY FOR THEM TO INFORM THAT THE PT WAS TRANSFERRED TO ICU. BOTH [employer]ED [employer] DIDNT ANSWERED THE PHONE AND I JUST LEFT A VOICE MESSAGE.
--- NOTE | 2022-04-22 20:40 | NUR ---
RECEIVED PT ON BED WITH PADDED SIDE RAILS R/T TO HIS SEIZURES. PT IS PERSPIRING COPIOUSLY. HIS ADMITTING TEMPERATURE WAS 103.5, HIS HEART RATE 170 AND HIS BP WAS82/47. A COLD BATH WAS GIVEN AND ICE PACKS APPLIED. BY 2099 PT VITAL SIGNS WERE CORRECTED TO 98.5 AX TEMPERATURE, 143 HEART RATE AND BP 97/48. PT WAS SUCTIONED FOR A LOT OF ORAL SECRETION AND ORAL CARE GIVEN. NOTIFIED DR. MAIER AT 2132 AN SHE TEXT BACK WITH ORDERS TO FOLLOW.
--- NOTE | 2022-04-22 21:31 | NUR ---
TRANSFERRED TO ICU, RECEIVED BY NURSE LAMAS WITH RT ON TRANSPORT. ALL THE THINGS AND CHART OF THE PT WAS GIVEN. Addendum: 04/22/22 at 2140 by Sonja Borges RN WRONG TIME
[2022-04-22 22:00] VITALS: BP 91/47
[2022-04-23] VITALS (22 sets, daily range): BP systolic 80–132; BP diastolic 35–98
[2022-04-23] MEDS: DEXTROSE 5% IV SCH (00:05)
[2022-04-23] MEDS: TOBRAMYCIN IV SCH (00:05)
[2022-04-23] MEDS ORDERED: NACL 0.9% 1,000 ML IV ONE (00:05)
[2022-04-23] MEDS ORDERED: TOBRAMYCIN 80 MG/2 ML VIAL ONE (00:54)
[2022-04-23] MEDS: NACL 0.9% 1,000 ML IV SCH ×2 (01:00→06:36)
--- NOTE | 2022-04-23 01:02 | NUR ---
ED NURSE JUST BROUGHT THE TOBRAMYCIN OVER. NOW IT CAN BR ADMINISTERED TO THE PATIENT
--- NOTE | 2022-04-23 01:54 | NUR ---
THE AM NURSE JUST CONFIRMED THAT THE POTASSIUM COVERAGE FOR THE PT WASN'T GIVEN. MAKING THE ATTEMPT YP GIVE THE MEDICATION MET WITH A STUMBLING BLOCK. THE DISPENSED MED FORM THE PIXIS IS EXTENDED RELEASE TABS THAT CN'T BE CRUSHED.TEXT SENT TO DR. MAIER TO REQUEST A LIQUID FORM. DR. MAIER INFORMED ME THAT SHE WAN'T DIVISION DIRECTOR; IT'S DR. CHAVARRIA SO I MAY HAVE TO CALL HIM INSTEAD.
[2022-04-23] MEDS ORDERED: POTASSIUM CHLORIDE 20% 40 MEQ/15 ML UDC GT ONE (02:30)
[2022-04-23] MEDS ORDERED: NOREPINEPHRINE 4 MG in DEXTROSE 5% 250 ML IV PRN (02:30)
[2022-04-23] MEDS ORDERED: POTASSIUM CHLORIDE 20% 40 MEQ/15 ML UDC GT SCH (02:45)
--- NOTE | 2022-04-23 02:51 | NUR ---
ORDERED LEVOPHED FOR A CONSISTENT BP IN THE 80,S AFTER THREE CYCLE. HOWEER BY THE TIME THE LEVOPHED WAS ABOUT TO BE HUNG THE BP WENT UP DRASTICALLY. TO 140/118. PUT THE LEVOPHED INTRODUCTION ON HOLD. NOW THE BP IS BACK DOWN TO 90/52. WILL CLOSELY MONITOR THIS ONE.
[2022-04-23] MEDS: PROPRANOLOL 20 MG TAB PO SCH ×3 (05:24→20:41)
[2022-04-23] MEDS: methIMAzole 5 MG TAB PO SCH ×3 (05:53→20:41)
[2022-04-23 06:01] LABS: BASOPHILS % (AUTO) 0.1 % (0.0-2.0); HEMATOCRIT 33.3 % (36-52); HEMOGLOBIN 11.1 g/dL (12.0-18.0); LYMPHOCYTES # (AUTO) 1.3 K/uL (2.0-11.5); LYMPHOCYTES % (AUTO) 12.6 % (20.5-51.1); MEAN CORPUSCULAR HEMOGLOBIN 33 pg (27-31); MEAN CORPUSCULAR HGB CONC 33 g/dL (33-37); MEAN CORPUSCULAR VOLUME 99.6 fL (80-94); MONOCYTES # (AUTO) 1.2 K/uL (0.8-1.0); MONOCYTES % (AUTO) 11.8 % (1.7-9.3); NEUTROPHILS # (AUTO) 7.5 K/uL (1.8-7.7); NEUTROPHILS % (AUTO) 75.5 % (42.2-75.2); PLATELET COUNT (AUTO) 278 K/uL (140-450); RED BLOOD CELL COUNT(AUTO) 3.35 MIL/uL (4.20-6.10); RED CELL DISTRIBUTION WIDTH 14.3 % (11.6-13.7); WHITE BLOOD COUNT (AUTO) 9.9 K/uL (4.8-10.8)
--- NOTE | 2022-04-23 07:00 | NUR ---
RECEIVED PT ON ACVC 400, RR14, +5, 25%. WHEELS ARE LOCKED, PLUGGED INTO RED OUTLET, AMBUBAG AT BEDSIDE, ALARMS ARE SET AND AUDIBLE.
[2022-04-23 07:12] LABS: ANION GAP 13.7 (8-16); CARBON DIOXIDE 24.8 mmol/L (21-32); CREATININE 0.6 mg/dL (0.6-1.3); POTASSIUM 3.5 mmol/L (3.5-5.1)
[2022-04-23 07:18] LABS: MAGNESIUM 2.3 mg/dL (1.8-2.4); PHOSPHORUS 2.7 mg/dL (2.5-4.9)
--- NOTE | 2022-04-23 07:25 | NUR ---
Received report on pt. Pt awake, unable to follow commands, trach to vent, FiO2 40%. Pt with occasional spasms and moves contracted extremities. Pt noted with fever T 101.2 and HR 90s-100s, cooling measures and PRN tylenol given. Shaw in place draining urine to gravity.
[2022-04-23] MEDS: ENOXAPARIN 40 MG/0.4 ML SYR SUBQ SCH (08:54)
[2022-04-23] MEDS ORDERED: NACL 0.45% 1,000 ML IV SCH (10:15)
--- NOTE | 2022-04-23 10:30 | NUR ---
Dr. Healy rounding on pt. New orders made
[2022-04-23] MEDS: DEXTROSE 5% 1,000 ML IV SCH ×2 (11:20→20:30)
[2022-04-23] MEDS: ACETAMINOPHEN 650 MG/20.3 ML UDC GT PRN (11:28)
[2022-04-23 18:15] LABS: ANION GAP 12.8 (8-16); CARBON DIOXIDE 25.2 mmol/L (21-32); CREATININE 0.7 mg/dL (0.6-1.3)
--- NOTE | 2022-04-23 19:13 | NUR ---
Endorsed plan of care to Stacie ROSALES.
--- NOTE | 2022-04-23 19:30 | NUR ---
RECEIVD REPORT FROM CAMI ROSALES, PT IS IN A SCATTER STATE WHICH IS HIS USUAL. YOU PULL HIM UP, CLEAN HIM UP AND TUCK HIM IN. IN LESS TN 5 MINUTES HE BECOMES SCATTERED. CAMI AND I REPOSITIONED HIM PRIOR TO HER LEAVING AND ON HER ARRIVAL IN THE AM. THE PT HAS LIMITED TO KNOW ABILITY TO COMPREHEND THE DANGER HE IMPOSES ON HIM SELF. HE'S VERY STRONG WHEN HE POSTURERS IT' IMPOSSIBLE TO MOVE HIS EXTREMITIES. IT'S IMPOSSIBLE TO KEEP HIS BODY IN ALIGNMENT. HE REMAINS ON THE VENT VIA TRACH WITH SETTINGS OF FI02 35%,T 400, RATE OF 14 AND PEEP OF 5. HE DOES OVER BREATH THE SOMETIME , BUT SEEMS COMFORTABLE WITH THE SETTING. ROMERO CATH IN PLACE DRAINING CLEAR YELLOW URINE. AMAZINGLY THE PEG TUBE ON THE LEFT QUAD OF HIS ABD REMAINS IN TACT , AND HE'S RECEIVING JEVITY 1.2 AT 50CC PER HOUR IS STILL INTACT.HE HAD A 100CC RESIDUAL ON ASSESSMENT. HIS SODIUM REMAINS ELEVATED HENNY HE'S RECEIVING D5W AT 150CC/PER HOUR. PT DOESNT'T APPEAR TO BE IN NOTABLE DISTRESS.
[2022-04-23] MEDS ORDERED: POTASSIUM CHLORIDE 20% 40 MEQ/15 ML UDC PO PRN ×2 (20:20→22:00)
[2022-04-23] MEDS: CLINDAMYCIN 600 MG in DEXTROSE 5% 50 ML IV SCH (20:37)
--- NOTE | 2022-04-23 22:00 | NUR ---
PT STARTED TO DEMONSTRATE DIFFICULTY MAINTAINING A SUFFICIENT BLOOD PRESSURE. DURING THE COURSE OF THE HOUR HIS BLOOD PRESSUE DROPPED TO 67/19. THE PT HOWEVER SHOW NO SIGHS OF DISTRESS , NO SKIN COLO CHANGES, NO DIAPHORESIS.NO DROP IN HIS HEART RATE. AFTER TROUBLE SHOOTING AND NO PLAUSIBLE CAUSE FOR THE SUDDEN DROPPED . THE PT STARTED ON LEVOPHED A@2MCG/MIN AND LATER INCRAED TO 5MCG/MIN WHEN THE BLOOD PRESSUE DROPPED BELOW 90 ON THE 2MCG.PT HAS BEEN FINE WITH THE BLOOD PRESSURE SINCE
[2022-04-23] MEDS ORDERED: NOREPINEPHRINE 4 MG/4 ML VIAL IV ONE (22:25)
[2022-04-24] VITALS (25 sets, daily range): BP systolic 82–157; BP diastolic 43–89
--- NOTE | 2022-04-24 01:30 | NUR ---
PT WAS GIVEN A BATH AND LINEN CHANGE HE HAD DIS-LODGED THE CONNECTION OF HIS IV AND BLOOD WAS EVERY WHERE. HE IV WAS WRAPPED IN A PACK O WIPES TO ACT A BARRIER OF PROTECTION.
[2022-04-24] MEDS: DEXTROSE 5% 1,000 ML IV SCH ×2 (03:30→10:07)
[2022-04-24] MEDS: methIMAzole 5 MG TAB PO SCH ×3 (05:06→21:57)
[2022-04-24] MEDS: PROPRANOLOL 20 MG TAB PO SCH ×3 (05:06→20:17)
[2022-04-24] MEDS: CLINDAMYCIN 600 MG in DEXTROSE 5% 50 ML IV SCH ×3 (05:08→21:57)
[2022-04-24 06:03] LABS: MAGNESIUM 2.3 mg/dL (1.8-2.4); PHOSPHORUS 1.7 mg/dL (2.5-4.9)
--- NOTE | 2022-04-24 07:40 | NUR ---
RECEIVED PT ACVC 14,400,+5,25%. VENT PLUGGED INTO RED OUTLET, WHEELS ARE LOCKED AND ALARMS ARE SET AND AUDIBLE, AMBUBAG AT BEDSIDE. SATURATION 98 ON 25% FIO2. COARSE BREATH SOUNDS, SUCTIONED UP MODERATE AMOUNT OF YELLOW SPUTUM. WILL CONTINUE TO MONITOR.
[2022-04-24] MEDS: ENOXAPARIN 40 MG/0.4 ML SYR SUBQ SCH (08:13)
[2022-04-24] MEDS: MIDODRINE 5 MG TAB PO SCH ×3 (08:45→20:17)
[2022-04-24 10:24] LABS: ALBUMIN 2.6 g/dL (3.4-5.0); ANION GAP 14.3 (8-16); CARBON DIOXIDE 23.6 mmol/L (21-32); CREATININE 0.6 mg/dL (0.6-1.3); POTASSIUM 3.9 mmol/L (3.5-5.1); TOTAL BILIRUBIN 0.9 mg/dL (0.0-1.0)
[2022-04-24] MEDS: TOBRAMYCIN IV SCH (12:25)
[2022-04-24] MEDS: DEXTROSE 5% IV SCH (12:25)
--- NOTE | 2022-04-24 13:31 | NUR ---
04/24/22 RD FOLLOW UP COMPLETED PLEASE REFER TO NUTRITION ASSESSMENT UNDER CARE ACTIVITY FOR ESTIMATED NUTRITIONAL NEEDS. 1. CONTINUE VITAL AF 1.2 KENDRA @ 50ML/HR TOLERATED -FWF 300ML Q6H PER MD -WILL PROVIDE 1440 KCAL AND 90 G PROTEIN, MEETING 100% OF PTS ESTIMATED ENERGY NEEDS; ADEQUATE. 2. MONITOR NUTRITION-RELATED LAB VALUES AND GI SYMPTOMS 3. RD TO FOLLOW-UP IN 7 DAYS PATIENT IS LOW RISK. BERTHA LI RD
[2022-04-24] MEDS ORDERED: LORazepam 2 MG/ML VIAL IVP PRN (22:20)
[2022-04-24] MEDS ORDERED: LORazepam 2 MG/ML VIAL ONE (22:22)
[2022-04-25] VITALS (30 sets, daily range): BP systolic 69–155; BP diastolic 31–94
[2022-04-25] MEDS: DEXTROSE 5% 1,000 ML IV SCH ×2 (01:15→22:00)
[2022-04-25] MEDS: CLINDAMYCIN 600 MG in DEXTROSE 5% 50 ML IV SCH ×3 (04:43→21:00)
[2022-04-25] MEDS: MIDODRINE 5 MG TAB PO SCH ×3 (04:43→21:00)
[2022-04-25] MEDS: methIMAzole 5 MG TAB PO SCH ×3 (04:44→21:00)
[2022-04-25] MEDS: PROPRANOLOL 20 MG TAB PO SCH ×3 (04:44→21:00)
[2022-04-25 06:39] LABS: MAGNESIUM 2.4 mg/dL (1.8-2.4); PHOSPHORUS 2.6 mg/dL (2.5-4.9)
--- NOTE | 2022-04-25 07:33 | NUR ---
Pt tachycardic, sweating profusely, afebrile, tachypneic and high pressuring ventillator (?symphathetic storming?). HR 140>120s after administering propanolol. Obtained order for benzo IVP. Increasing pressor requirement overnight after giving ativan 0.5mg IVP. Opens eyes intermittently but with no communicative intent, withdraws to painful stimuli. AC 35% +5, 17RR 100%SpO2. SR on monitor. Levo10 to maintain MAP>65. TF tolerated. No BM overnight. UOP adequate. Safety/aspiration precautions cont.
--- NOTE | 2022-04-25 09:13 | NUR ---
SEEN BY DR WILSON AT BED SIDE , ORDER RECEIVED.
[2022-04-25] MEDS: ENOXAPARIN 40 MG/0.4 ML SYR SUBQ SCH (09:33)
--- NOTE | 2022-04-25 11:30 | NUR ---
TEMP 100.9 SKIN WARM FACE FLUSH HR125/ TYLENOL GIVEN ORDER.
--- NOTE | 2022-04-25 19:20 | NUR ---
TRANSFER OF CARE FROM [facility], RECEIVED REPORT FROM BOBBY RAMIREZ
[2022-04-26] VITALS (14 sets, daily range): BP systolic 87–134; BP diastolic 39–79
[2022-04-26] MEDS: DEXTROSE 5% IV SCH (00:13)
[2022-04-26] MEDS: TOBRAMYCIN IV SCH (00:13)
[2022-04-26] MEDS: CLINDAMYCIN 600 MG in DEXTROSE 5% 50 ML IV SCH ×3 (05:00→21:28)
[2022-04-26] MEDS: PROPRANOLOL 20 MG TAB PO SCH ×3 (05:00→21:40)
[2022-04-26] MEDS: methIMAzole 5 MG TAB PO SCH ×3 (05:00→21:40)
[2022-04-26] MEDS: MIDODRINE 5 MG TAB PO SCH ×3 (05:00→21:40)
[2022-04-26 05:20] LABS: MAGNESIUM 2.1 mg/dL (1.8-2.4); PHOSPHORUS 3.5 mg/dL (2.5-4.9)
--- NOTE | 2022-04-26 07:28 | NUR ---
TRANSFER OF CARE TO [facility], REPORT GIVEN TO HOMERO
[2022-04-26] MEDS: DEXTROSE 5% 1,000 ML IV SCH (12:12)
[2022-04-26 17:04] LABS: BASOPHILS % (AUTO) 0.4 % (0.0-2.0); EOSINOPHILS # (AUTO) 0.3 K/uL (0-0.4); EOSINOPHILS % (AUTO) 5.2 % (0.0-4.0); HEMATOCRIT 35.5 % (36-52); LYMPHOCYTES # (AUTO) 1.8 K/uL (2.0-11.5); MEAN CORPUSCULAR HEMOGLOBIN 33 pg (27-31); MEAN CORPUSCULAR HGB CONC 34 g/dL (33-37); MONOCYTES # (AUTO) 0.7 K/uL (0.8-1.0); MONOCYTES % (AUTO) 14.7 % (1.7-9.3); NEUTROPHILS # (AUTO) 2.1 K/uL (1.8-7.7); NEUTROPHILS % (AUTO) 42.7 % (42.2-75.2); PLATELET COUNT (AUTO) 304 K/uL (140-450); RED BLOOD CELL COUNT(AUTO) 3.62 MIL/uL (4.20-6.10); RED CELL DISTRIBUTION WIDTH 14.4 % (11.6-13.7); WHITE BLOOD COUNT (AUTO) 4.8 K/uL (4.8-10.8)
[2022-04-26 17:20] LABS: PROTHROMBIN TIME 9.7 secs (10.8-13.4)
[2022-04-26 17:22] LABS: ANION GAP 11.6 (8-16); CARBON DIOXIDE 29.4 mmol/L (21-32); CREATININE 0.4 mg/dL (0.6-1.3); TOTAL BILIRUBIN 0.5 mg/dL (0.0-1.0)
--- NOTE | 2022-04-26 20:00 | NUR ---
RECEIVED REPORT FROM ICU NURSE, MAJO. PT IS DOWNGRADE FROM ICU TO MST DEPARTMENT. PT IS APHASIC, BEDBOUND. PT IS ON VENT TO TRACH WITH FIO2 OF 24%, TD-400ML, RATE OF 14 PEEP OF 5. PT HAS G-TUBE RUNNING WITH VITAL AF 1.2 50ML/HR WITH H20 OF 300 EVERY 6 HRS. PT HAS IV ON RIGHT HAND GAUGE 20 AND LEFT FOREARM GAUGE 20 SALINE LOCK. PT HAS ROMERO CATHETER AND PT SKIN IS INTACT. ALL SAFETY MEASURES WAS IMPLEMENTED. BED IN LOW POSITION, BED WHEELS ON LOCK, AND CALL LIGHT WITHIN REACH,
--- NOTE | 2022-04-26 21:28 | NUR ---
SCHEDULED AND PRESCRIBED ANTIBIOTIC WAS GIVEN TO PT PER MD ORDER. ALL SAFETY MEASURES IMPLEMENTED. BED IN LOW POSITION, BED WHEELS ON LOCKED AND CALL LIGHT WITHIN REACH
--- NOTE | 2022-04-26 21:40 | NUR ---
ALL SCHEDULED AND PRESCRIBED MEDICATION WAS GIVEN TO PT PER MD ORDER. ALL SAFETY MEASURES IMPLEMENTED. BED IN LOW POSITION, BED WHEELS ON LOCKED AND CALL LIGHT WITHIN REACH
--- NOTE | 2022-04-26 22:15 | NUR ---
DR. SUAREZ CALLED AND ORDERED TO START 1/2 NS AT 65ML/HR AND WATER FLUSH OF 300ML EVERY 4HRS. ORDER WAS CARRIED OUT.
[2022-04-26] MEDS: NACL 0.45% 1,000 ML IV SCH (22:21)
[2022-04-27] VITALS: BP 107/43
--- NOTE | 2022-04-27 | NUR ---
FIXED AND SUCTIONED THE PT. REPOSITIONED AND CHECK PT'S IV. ALL SAFETY MEASURES IMPLEMENTED. BED IN LOW POSITION, BED WHEELS ON LOCKED AND CALL LIGHT WITHIN REACH.
[2022-04-27 04:00] VITALS: BP 130/50
[2022-04-27] MEDS: MIDODRINE 5 MG TAB PO SCH ×2 (04:52→13:00)
[2022-04-27] MEDS: methIMAzole 5 MG TAB PO SCH ×2 (04:52→14:48)
[2022-04-27] MEDS: PROPRANOLOL 20 MG TAB PO SCH ×2 (04:52→13:00)
--- NOTE | 2022-04-27 04:52 | NUR ---
SCHEDULED AND PRESCRIBED MEDICATION WAS GIVEN TO PT PER MD ORDER. MORNING CARE WAS ALSO DONE TO PT. ALL SAFETY MEASURES IMPLEMENTED. BED IN LOW POSITION, BED WHEELS ON LOCKED AND CALL LIGHT WITHIN REACH.
--- NOTE | 2022-04-27 07:38 | NUR ---
PT IS STABLE. ENDORSED PT TO MORNING SHIFT NURSE FOR CONTINUITY OF CARE.
--- NOTE | 2022-04-27 07:39 | NUR ---
RECEIVED BEDSIDE REPORT FROM TAMY HARD HAT DIVER RN, FOR CONTINUITY OF CARE. PT A/OX0, NONVERBAL. TRACH TO VENT ACVC 24%/400/14/5. SR/ST ON MONITOR. 20G TO R WRIST, 20G TO L FA INFUSING 1/2NS AT 65 ML/HR. G TUBE IN PLACE INFUSING VITAL TUBE FEEDING AT 50ML/HR WITH FWF 300 Q4H. F/C TO GRAVITY. RIGID EXTREMITIES THROUGHOUT. STANDARD PRECAUTION. BED LOCKED AND IN LOWEST POSITION.
[2022-04-27 08:00] VITALS: BP 110/0
--- NOTE | 2022-04-27 08:40 | NUR ---
RECEIVED ON A [employer]ate[employer]APE R860 VENTILATOR PLUGGED INTO RED OUTLET TOLERATING WELL WITHOUT ADVERSE REACTIONS NOTED TO A PORTEX DCT#6 AIRWAY SECURED WITH A SHELBIE TRACH TIE CUFF PRESSURE CHECKED NOTED AMBU BAG AT BEDSIDE RESTING WELL GOOD CHEST RISE DEEP TRACHEAL SUCTION FOR LARGE THIN PALE YELLOW SECRETIONS AIRWAY PATENT
--- NOTE | 2022-04-27 10:25 | NUR ---
RESTING COMFORTABLY EQUAL CHEST RISE AIRWAY PATENT
[2022-04-27] MEDS ORDERED: PRO5 PO (11:17)
[2022-04-27] MEDS ORDERED: TAP5 PO (11:17)
[2022-04-27 12:00] VITALS: BP 121/63
[2022-04-27] MEDS: DEXTROSE 5% 1,000 ML IV SCH (12:21)
[2022-04-27 12:41] LABS: MAGNESIUM 2.2 mg/dL (1.8-2.4); PHOSPHORUS 4.7 mg/dL (2.5-4.9)
[2022-04-27 12:50] LABS: BASOPHILS % (AUTO) 0.2 % (0.0-2.0); EOSINOPHILS # (AUTO) 0.2 K/uL (0-0.4); EOSINOPHILS % (AUTO) 3.4 % (0.0-4.0); HEMATOCRIT 37.7 % (36-52); HEMOGLOBIN 12.8 g/dL (12.0-18.0); LYMPHOCYTES # (AUTO) 1.6 K/uL (2.0-11.5); LYMPHOCYTES % (AUTO) 22.8 % (20.5-51.1); MEAN CORPUSCULAR HEMOGLOBIN 34 pg (27-31); MEAN CORPUSCULAR HGB CONC 34 g/dL (33-37); MEAN CORPUSCULAR VOLUME 98.7 fL (80-94); NEUTROPHILS # (AUTO) 4.1 K/uL (1.8-7.7); NEUTROPHILS % (AUTO) 59.6 % (42.2-75.2); PLATELET COUNT (AUTO) 353 K/uL (140-450); RED BLOOD CELL COUNT(AUTO) 3.82 MIL/uL (4.20-6.10); RED CELL DISTRIBUTION WIDTH 14.2 % (11.6-13.7); WHITE BLOOD COUNT (AUTO) 6.8 K/uL (4.8-10.8)
[2022-04-27] MEDS: NACL 0.45% 1,000 ML IV SCH (13:34)
--- NOTE | 2022-04-27 14:18 | NUR ---
AWAKE AGITATED GOOD CHEST RISE DEEP TRACHEAL SUCTION FOR MODERATE THIN PALE YELLOW SECRETIONS AIRWAY PATENT
--- NOTE | 2022-04-27 15:15 | NUR ---
DC PLANNING: PATIENT IS RETURNING TO [facility] CAN GO TO ROOM 2A # TO GIVE REPORT [phone] ARRANGED TRANSPORT WITH [facility] TRANSPORT ETA 1700 NOTIFIED LANA ROSALES. CM TO FOLLOW
[2022-04-27 15:47] VITALS: BP 121/63
[2022-04-27 16:00] VITALS: BP 133/88
--- NOTE | 2022-04-27 16:40 | NUR ---
DISCHARGE PAPERWORK DONE, CALLED AND LEFT MESSAGE TO MOTHER STAN MOSELEY TO NOTIFY OF PT TRANSFER.
--- NOTE | 2022-04-27 18:47 | NUR ---
REPORT GIVEN [facility] AT BEDSIDE TO TRANSFER PT.
== END 2022-04-27 19:02 | DRG 870 ==
LOC: MED 04:00 → MMU 05:33 → MIC 07:12 → MTU 04-13 17:55 → MIC 04-22 20:21 → MTU 04-26 20:10
PROVIDERS: ADMIT Family Medicine; ATTEND Family Medicine
PROC: 5A1955Z Respiratory Ventilation, Greater than 96 Consecutive Hours (ICD-10-PCS; principal; 2022-04-11)
DX: A41.9 Sepsis, unspecified organism (principal); G80.0 Spastic quadriplegic cerebral palsy; J15.1 Pneumonia due to Pseudomonas; J96.20 Acute and chronic respiratory failure, unspecified whether with hypoxia or hypercapnia; J69.0 Pneumonitis due to inhalation of food and vomit; E87.20 Acidosis, unspecified; E87.1 Hypo-osmolality and hyponatremia; E44.1 Mild protein-calorie malnutrition; E87.0 Hyperosmolality and hypernatremia; N39.0 Urinary tract infection, site not specified; Z99.11 Dependence on respirator [ventilator] status; Z68.1 Body mass index [BMI] 19.9 or less, adult; Z20.822 Contact with and (suspected) exposure to COVID-19; R65.20 Severe sepsis without septic shock; E05.90 Thyrotoxicosis, unspecified without thyrotoxic crisis or storm; J45.909 Unspecified asthma, uncomplicated; G40.909 Epilepsy, unspecified, not intractable, without status epilepticus; E87.8 Other disorders of electrolyte and fluid balance, not elsewhere classified; Z88.2 Allergy status to sulfonamides; Z93.0 Tracheostomy status; Z93.1 Gastrostomy status
CPT/HCPCS: 36415; 36600; 71045; 80048; 80053; 80200; 80202; 81001; 82550; 82553; 82803; 83605; 83735; 83880; 84100; 84439; 84443; 84484; 85025; 85610; 85730; 86886; 86900; 86901; 86920; 87040; 87070; 87081; 87086; 87205; 89220; 93005; 94002; 94003; 96365; 96367; 96375; 99291; J1450; J1650; J2060; J2185; J2543; J3260; J3370; J3480; J3490; J7060; Q0092

== ENCOUNTER 2022-08-31 20:02 | Inpatient (IN) | payer OTHER ==
[~2022-08-31] VITALS: Ht 152.4 cm; Wt 46.3 kg
[2022-08-31 20:02] VITALS: BP 192/142
[~2022-08-31 20:02] MED LIST changes: -BISA-213 RC; -LEVO750T75 NG; -MERO1PIG IV; -MONT10TA35 GT; -MULT9LIQ2 GT; +PRO5 PO; -SCOP0.333 TP; -SIME80TA22 GT; +TAP5 PO
--- NOTE | 2022-08-31 20:02 | NUR ---
PT DIMAS ALS. TAKEN TO BED 10
--- NOTE | 2022-08-31 20:02 | NUR ---
IBA FROM [facility] C/O RAPID HR x4 HOURS. MEDHX- AFIB, CHRONIC RESP FAILURE, ASHTMA, QUADRIPLEGIA ALLX- SULFA
--- NOTE | 2022-08-31 20:05 | NUR ---
Dr. Saenz examining patient.
[2022-08-31] MEDS ORDERED: cefTRIAXone 1,000 MG in DEXT 5% MINI-BAG PLUS 50 ML IV ONE (20:10)
[2022-08-31] MEDS ORDERED: ACETAMINOPHEN 650 MG SUPP RC ONE ×2 (20:10→21:37)
[2022-08-31 20:49] LABS: BASOPHILS % (AUTO) 0.6 % (0.0-2.0); EOSINOPHILS # (AUTO) 0.2 K/uL (0-0.4); EOSINOPHILS % (AUTO) 2.8 % (0.0-4.0); HEMATOCRIT 44.6 % (36-52); HEMOGLOBIN 15.3 g/dL (12.0-18.0); LYMPHOCYTES # (AUTO) 2.4 K/uL (2.0-11.5); MEAN CORPUSCULAR HEMOGLOBIN 32 pg (27-31); MEAN CORPUSCULAR HGB CONC 34 g/dL (33-37); MEAN CORPUSCULAR VOLUME 94.5 fL (80-94); MONOCYTES # (AUTO) 0.8 K/uL (0.8-1.0); MONOCYTES % (AUTO) 11.1 % (1.7-9.3); NEUTROPHILS # (AUTO) 3.7 K/uL (1.8-7.7); NEUTROPHILS % (AUTO) 51.5 % (42.2-75.2); PLATELET COUNT (AUTO) 370 K/uL (140-450); RED BLOOD CELL COUNT(AUTO) 4.72 MIL/uL (4.20-6.10); RED CELL DISTRIBUTION WIDTH 12.4 % (11.6-13.7); WHITE BLOOD COUNT (AUTO) 7.2 K/uL (4.8-10.8)
[2022-08-31] MEDS: NACL 0.9% 1,500 ML IV SCH (21:00)
[2022-08-31 21:07] LABS: ALBUMIN 4.7 g/dL (3.4-5.0); ANION GAP 16.8 (8-16); CARBON DIOXIDE 27.1 mmol/L (21-32); CREATININE 0.6 mg/dL (0.6-1.3); POTASSIUM 4.9 mmol/L (3.5-5.1); TOTAL BILIRUBIN 0.7 mg/dL (0.0-1.0)
[2022-08-31] MEDS ORDERED: cefTRIAXone 1,000 MG VIAL ONE (21:23)
--- NOTE | 2022-08-31 21:55 | NUR ---
PT HAD STRAIGHT CATH. PT TOLERATED WELL
--- NOTE | 2022-08-31 22:00 | NUR ---
PT CARE WAS PERFORMED. PT HAD BOWEL MOVEMENT 50 ML.
[2022-08-31 22:10] LABS: APPEARANCE,URINE CLEAR (CLEAR); BILIRUBIN,URINE NEGATIVE (NEGATIVE); BLOOD, URINE NEGATIVE (NEGATIVE); COLOR,URINE YELLOW (YELLOW); LEUKOCYTE ESTERASE ,URINE NEGATIVE (NEGATIVE); NITRITE, URINE NEGATIVE (NEGATIVE); PH,URINE 6.5 (5.0-9.0); UGLUCOSE NEGATIVE (NEGATIVE)
[2022-08-31] MEDS ORDERED: MORPHINE SULFATE 4 MG/ML SYR IVP ONE (22:15)
[2022-09-01] MEDS ORDERED: DOCU-299 GT (02:27)
[2022-09-01] MEDS ORDERED: ACET-2619 PO (02:27)
[2022-09-01] MEDS ORDERED: BEN50 PO (02:27)
[2022-09-01] MEDS ORDERED: BISA-218 RC (02:27)
[2022-09-01] MEDS ORDERED: NA P133E RC (02:27)
[2022-09-01] MEDS ORDERED: PRON INH (02:27)
[2022-09-01] MEDS ORDERED: MIDO5TAB16 PO (02:27)
[2022-09-01] MEDS ORDERED: ROB1 PO (02:27)
[2022-09-01] MEDS ORDERED: TAP5 PO (02:27)
--- NOTE | 2022-09-01 04:59 | NUR ---
PT HAD BOWEL MOVEMENT 100 ML WAS NOTED. PT CARE WAS PERFOMED
[2022-09-01] MEDS: PIPERACILLIN/TAZOBACTAM 3.375 GM in DEXTROSE 5% 50 ML IV SCH ×3 (05:00→20:25)
[2022-09-01] MEDS ORDERED: PIPERACILLIN/TAZOBACTAM 3.375 GM VIAL IV ONE (05:07)
--- NOTE | 2022-09-01 07:09 | NUR ---
pt had voided 100 ml and pt care was perfomed.
--- NOTE | 2022-09-01 07:35 | NUR ---
Patient will be admitted to care of dr andrade. Admited to tele. Will go to room 123b. Belongings list completed. Report to Azael ROSALES.
[2022-09-01 08:00] VITALS: BP 133/73
--- NOTE | 2022-09-01 09:54 | NUR ---
PATIENT HAS BEEN SCREENED AND CATEGORIZED HIGH NUTRITION RISK. PATIENT WILL BE SEEN WITHIN 1-2 DAYS OF ADMISSION. [facility]NS REFERRAL RECEIVED FOR TUBE FEEDING ON 09/01/22 REVIEWED BY BERTHA LI RD
--- NOTE | 2022-09-01 09:59 | NUR ---
This is an admission of a 22 year old male patient who is bedbound/facility bound with a diagnosis of pneumonia and sepsis under the care of Doctor Mills.
[2022-09-01] MEDS ORDERED: MAGNESIUM HYDROXIDE 2400 MG/30 ML UDC PO PRN (10:50)
[2022-09-01] MEDS ORDERED: diphenhydrAMINE 50 MG CAP PO SCH (10:50)
[2022-09-01] MEDS ORDERED: DOCUSATE SODIUM 100 MG GELCAP PO PRN (10:50)
[2022-09-01] MEDS ORDERED: diphenhydrAMINE 50 MG CAP PO PRN (10:50)
[2022-09-01] MEDS ORDERED: ALBUTEROL 0.083% 2.5 MG/3 ML NEBU INH PRN (10:50)
[2022-09-01] MEDS ORDERED: MIDODRINE 5 MG TAB PO PRN (10:50)
[2022-09-01 12:00] VITALS: BP 129/73
[2022-09-01] MEDS: GLYCOPYRROLATE 1 MG TAB GT SCH ×2 (12:47→17:14)
[2022-09-01] MEDS: BACLOFEN 10 MG TAB PO SCH ×2 (12:47→17:14)
[2022-09-01] MEDS: diazePAM 5 MG TAB GT PRN (12:48)
[2022-09-01] MEDS ORDERED: methIMAzole 5 MG TAB PO SCH (13:00)
[2022-09-01] MEDS ORDERED: MIDODRINE 5 MG TAB PO SCH (13:00)
[2022-09-01] MEDS ORDERED: BACLOFEN GT SCH (13:00)
[2022-09-01] MEDS: NACL 0.9% 1,500 ML IV SCH (13:31)
--- NOTE | 2022-09-01 13:40 | NUR ---
EKG ORDERED BY DR MAIER DUE TO PT ELEVATED HR. NO SIGNS OF DISTRESS. PT FELT HOT TO TOUCH TEMP. WAS TAKEN AND WAS 101.8. RN SHANIQUE MADE AWARE. STATED HE GAVE PT TYLENOL. WILL CONTINUE TO MONITOR.
[2022-09-01] MEDS: ACETAMINOPHEN 325 MG TAB PO SCH (14:11)
[2022-09-01] MEDS ORDERED: NACL 0.9% 500 ML IV ONE (14:20)
--- NOTE | 2022-09-01 15:58 | NUR ---
09/01/22 RD INITIAL ASSESSMENT COMPLETED PLEASE REFER TO NUTRITION ASSESSMENT UNDER CARE ACTIVITY FOR ESTIMATED NUTRITIONAL NEEDS. 1. WHEN/IF MEDICALLY APPROPRIATE, RECOMMEND JEVITY 1.2 @ 55 ML/HR TOLERATED -FWF: 150 ML Q6H -START TF AT 20 ML/HR AND INCREASE BY 20 ML Q4H TOLERATED. -AT GOAL RATE, PATIENT WILL RECEIVE 1320 ML VOLUME, 1584 KCAL, 73 GRAMS PROTEIN AND 1665 ML FW. THIS MEETS 100% OF PATIENTS ESTIMATED NUTRIENT NEEDS. -IF EXTUBATED RECOMMEND SWALLOW EVAL. 2. MONITOR GI, PO INTAKE, AND LAB VALUES. 3. RD TO FOLLOW-UP 2-3 DAYS, HIGH RISK REVIEWED BY BERTHA LI RD
[2022-09-01 16:00] VITALS: BP 133/59
[2022-09-01] MEDS: NACL 0.9% 1,000 ML IV SCH (16:25)
--- NOTE | 2022-09-01 17:36 | NUR ---
VENT CHECK, TRACH CARE, AND ROUNDED ON PT CHECKED HIS TEMP WELL. 102.6 RN GOT ICE PACKS AND PLACED THEM ON PT. PT WAS SUCTIONED THICK WHITE SECRETIONS.
[2022-09-01 19:04] VITALS: BP 151/71
--- NOTE | 2022-09-01 19:20 | NUR ---
PATIENT LYING ON THE BED, HOB ELEVATED, PATIENT IS TRACH TO VENT, SETTINGS FIO2 24%, VT 400, RATE 14 AND PEEP 5. PATIENT IN NO ACUTE DISTRESS, IS NOT SHOWING ANY SIGNS OF PAIN, OPENS EYES, IV ACCESS SITE ON LEFT AC, PATENT AND INTACT RUNNING NS @100MLS/HR. ALL SAFETY MEASURES IN PLACE.
[2022-09-01 20:00] VITALS: BP 121/80
[2022-09-01] MEDS: CALCIUM CARBONATE 500 MG TAB GT SCH (20:25)
--- NOTE | 2022-09-01 20:25 | NUR ---
SCHEDULED MEDICATION GIVEN VIA G TUBE ORDERED, 0 RESIDUAL NOTED. SCHEDULED IV ANTIBIOTIC GIVEN ORDERED.
[2022-09-01] MEDS ORDERED: NON-FORMULARY ITEM (Cranberry Fruit (Cranberry) 1 TAB) GT SCH (21:00)
[2022-09-01] MEDS ORDERED: VANCOMYCIN PER PHARMACY MC PRN (23:20)
[2022-09-02] VITALS (10 sets, daily range): BP systolic 119–153; BP diastolic 55–86
--- NOTE | 2022-09-02 00:10 | NUR ---
BEDSIDE CARE DONE, MOUTH CARE DONE. PATIENT TOLERATED WELL, NO SIGNS OF DISTRESS NOTED. ALL SAFETY MEASURES MAINTAINED.
[2022-09-02] MEDS ORDERED: VANCOMYCIN 1GM/DEXT 5% PREMIX 200 ML IV SCH (00:30)
[2022-09-02] MEDS ORDERED: VANCOMYCIN 1,000 MG VIAL ONE (00:42)
--- NOTE | 2022-09-02 02:25 | NUR ---
PATIENT IS AWAKE, NO SIGNS OF DISTRESS NOTED, HOB ELEVATED FOR ASPIRATION PRECAUTIONS. ALL SAFETY MEASURES IN PLACE.
--- NOTE | 2022-09-02 03:00 | NUR ---
O2 SAT IS 94 % TO 95 % BUT VENT . MACHINE KEEP BEEPING REFERRING TO RT , PER RT SHE WILL CHECK THE PT AND THE VENT MACHINE
--- NOTE | 2022-09-02 03:13 | NUR ---
RT AT BEDSIDE
[2022-09-02] MEDS: NACL 0.9% 1,000 ML IV SCH ×3 (04:16→23:29)
[2022-09-02] MEDS: PIPERACILLIN/TAZOBACTAM 3.375 GM in DEXTROSE 5% 50 ML IV SCH ×3 (04:21→20:33)
--- NOTE | 2022-09-02 04:30 | NUR ---
BEDSIDE CARE DONE, MOUTH CARE DONE. HOB ELEVATED FOR ASPIRATION PRECAUTIONS, PATIENT IN NO ACUTE DISTRESS, IS NOT SHOWING ANY SIGNS OF PAIN. JEVITY 1.2 KENDRA RUNNING @60ML/HR VIA Intercom. SAFETY MEASURES IN PLACE.
[2022-09-02] MEDS: diazePAM 5 MG TAB GT PRN ×2 (05:59→09:42)
--- NOTE | 2022-09-02 05:59 | NUR ---
PATIENT GIVEN PRN VALIUM, PATIENT WAS RESTLESS, WILL CONTINUE TO MONITOR THE PATIENT.
[2022-09-02] MEDS: ACETAMINOPHEN 325 MG TAB PO SCH (06:20)
[2022-09-02 07:04] LABS: ANION GAP 14.1 (8-16); CARBON DIOXIDE 24.4 mmol/L (21-32); CREATININE 0.9 mg/dL (0.6-1.3); POTASSIUM 3.5 mmol/L (3.5-5.1)
--- NOTE | 2022-09-02 07:19 | NUR ---
ENDORSED PATIENT TO DAY NURSE FOR CONTINUITY OF CARE. PATIENT IN STABLE CONDITION.
[2022-09-02] MEDS ORDERED: GLYCOPYRROLATE 1 MG TAB PO SCH (09:00)
[2022-09-02] MEDS ORDERED: SODIUM PHOSPHATE 118 ML ENEM RC PRN (09:00)
[2022-09-02] MEDS: BACLOFEN 10 MG TAB PO SCH ×3 (09:41→17:22)
[2022-09-02] MEDS: CALCIUM CARBONATE 500 MG TAB GT SCH ×2 (09:41→20:33)
[2022-09-02] MEDS: methIMAzole 5 MG TAB PO SCH (09:42)
[2022-09-02] MEDS: POLYETHYLENE GLYCOL 17 GM/PKT PO SCH (09:42)
[2022-09-02] MEDS: bisacodyL 10 MG SUPP RC SCH (09:42)
[2022-09-02] MEDS: GLYCOPYRROLATE 1 MG TAB GT SCH ×3 (09:42→17:21)
--- NOTE | 2022-09-02 10:05 | NUR ---
PT. WITH LOW MARLENE SCALE AT HIGH RISK, CONTINUE TO FOLLOW PRESSURE INJURY PREVENTION INTERVENTIONS. -POSITIONING: TURN AND REPOSITION PATIENT Q 2H OR SOONER USE PILLOWS TO KEEP BONY PROMINENCES FROM DIRECT CONTACT WITH SURFACES USE REPOSITIONING WEDGES TO PROVIDE 30-DEGREE ANGLE FOR SIDE LYING POSITIONS OFFLOADING OR FOAM DRESSING TO ALL TUBING TO PREVENT MEDICAL DEVICES RELATED PRESSURE INJURY -RE-EVALUATING AND MANAGING INCONTINENCE MONITOR SKIN CONDITION DURING POSITION CHANGE DO NOT MASSAGE REDNESS, BONY PROMINENCES FREQUENT CARLOS-CARE AND PROVIDE BARRIER CREAMS PRN IF SOILING MOISTURE CONTROL BY OFFER BED CUMMINGS/URINAL /ABSORBENT PAD TO WICK AND HOLD MOISTURE KEEP SKIN DRY AND PROTECT FROM FRICTION -MANAGE FRICTION/SHEAR/MOBILITY KEEP HOB AT THE LOWEST LEVEL OF ELEVATION NO MORE THAN 30 DEGREE UNLESS OTHERWISE CONTRAINDICATED USE LIFT SHEET OR TRANSFER DEVICE TO MOVE PATIENT AND PREVENT LATERAL SHEER. PROTECT HEELS, ELBOWS BONY PROMINENCES WITH SKIN BERRIES OR FOAM DRESSING IF EXPOSED TO FRICTION OFFLOAD BILATERAL HEELS BY PLACING PILLOWS UNDER CALVES AT ALL TIMES, UNLESS OTHERWISE CONTRAINDICATED -PRESSURE REDISTRIBUTION SURFACE THERAPY ELAINE ISOFLEX MATTRESS -NUTRITION: PLEASE FOLLOW RD RECOMMENDATIONS AND OFFER NUTRITION SUPPLEMENTS IF ORDERED. PLEASE CONTACT WOUND CARE NURSE FOR ANY QUESTION AND CHANGE OF WOUND CONDITION.
[2022-09-02] MEDS: VANCOMYCIN 500 MG in DEXTROSE 5% 100 ML IV SCH ×2 (12:05→23:29)
--- NOTE | 2022-09-02 14:11 | NUR ---
DC PLANNING ASSESSMENT COMPLETE PLEASE REFER TO ASSESSMENT FOR ADDITIONAL DETAILS PT NONVERBAL BASELINE AND IS A CHRONIC TRAYC VENT PT. ARABELLA OUTREACHED [facility] AND SPOKE WITH SU, [facility] ADMIN. SU REPORTS PT IS IN SUBACUTE CARE WITH [facility], ADMISSION DATE 03/17/19. PT IS REPORTED TO BE BEDBOUND AND IS TOTAL CARE AT FACILITY . PATIENT IS NONVERBAL AND UNABLE TO MAKE NEEDS KNOWN. PATIENT IS REPORTED TO BE [facility]CT[facility], [facility] ARABELLA MENDOZABLANERIKKI ALVAREZ [phone]. HOWEVER, SU REPORTS PTS MOTHER PROVIDES CONSENTS NEEDED. SU REPORTS FAMILY IS SUPPORTIVE AND ACTIVE IN PT'S CARE. PT IS FOLLOWED BY DR MUNSON AT FACILITY. SU REPORTS DC PLAN IS FOR PATIENT TO RETURN TO [facility], ONCE MEDICALLY STABLE.
--- NOTE | 2022-09-02 16:57 | NUR ---
DC [age] YRS OLD MALE PATIENT WAS ADMITTED FROM [facility] – [place] WITH A DX OF SEVER SEPSIS AND PNEUMONIA. 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 CXR SHOWED BILATERAL INFILTRATE. ADMINISTERED IV ABX VANCO AND ZOSYN AND CONTINUED HOME MEDS. CONSULTED WITH PULMO AND ID. DC PLAN TO RETURN TO [facility] – [place] WHEN STABLE. CM TO FOLLOW
[2022-09-03] VITALS: BP 148/64
[2022-09-03 04:00] VITALS: BP 138/68
[2022-09-03] MEDS: PIPERACILLIN/TAZOBACTAM 3.375 GM in DEXTROSE 5% 50 ML IV SCH ×3 (05:35→20:50)
[2022-09-03 06:09] LABS: ANION GAP 11.9 (8-16); CARBON DIOXIDE 30.3 mmol/L (21-32); CREATININE 0.7 mg/dL (0.6-1.3); POTASSIUM 4.2 mmol/L (3.5-5.1)
[2022-09-03 08:00] VITALS: BP 127/76
[2022-09-03] MEDS: CALCIUM CARBONATE 500 MG TAB GT SCH ×2 (09:56→20:49)
[2022-09-03] MEDS: POLYETHYLENE GLYCOL 17 GM/PKT PO SCH (09:56)
[2022-09-03] MEDS: methIMAzole 5 MG TAB PO SCH (09:56)
[2022-09-03] MEDS: bisacodyL 10 MG SUPP RC SCH (09:56)
[2022-09-03] MEDS: BACLOFEN 10 MG TAB PO SCH ×3 (09:56→18:39)
[2022-09-03] MEDS: GLYCOPYRROLATE 1 MG TAB GT SCH ×3 (09:56→18:39)
[2022-09-03] MEDS: NACL 0.9% 1,000 ML IV SCH ×3 (09:57→23:10)
--- NOTE | 2022-09-03 10:24 | NUR ---
Complete bed bath and linen change after medication pass this am. Will hang new tube feeding.
--- NOTE | 2022-09-03 10:40 | NUR ---
New tube feeding is up at this time at 60 milliliters per hour and water flush 100 milliliters every 6 hours.
[2022-09-03 12:00] VITALS: BP 110/59
[2022-09-03] MEDS: VANCOMYCIN 500 MG in DEXTROSE 5% 100 ML IV SCH (12:00)
[2022-09-03] MEDS: diazePAM 5 MG TAB GT PRN (12:27)
[2022-09-03] MEDS ORDERED: VANCOMYCIN 750 MG in DEXTROSE 5% 250 ML IV SCH (13:00)
--- NOTE | 2022-09-03 15:50 | NUR ---
09/03/22 RD FOLLOW UP COMPLETED 1. PATIENT WILL CONSUME >75% OF ESTIMATED KCAL AND PROTEIN NEEDS WITHIN 2-3 DAYS DIETITIAN WILL MONITOR NUTRITION SUPPORT INTAKE, NUTRITION-RELATED LABS TRENDING WNL, SKIN INTEGRITY, WEIGHTS, GI FUNCTION. DISCHARGE PLAN: PATIENT SHOULD BE ABLE TO CONTINUE WITH NUTRITION SUPPORT UPON DISCHARGE. REVIEWED BY BERTHA LI RD
[2022-09-03 16:00] VITALS: BP 129/74
--- NOTE | 2022-09-03 19:29 | NUR ---
HANDOFF WITH HUMAN DEVELOPMENT PROFESSOR RNTERE.
[2022-09-03 20:00] VITALS: BP 107/47
--- NOTE | 2022-09-03 20:00 | NUR ---
JAH REPORT REPORT OBTAINED FROM [facility] NURSE SHANIQUE AT 1929. VSS. AFEB. NO C/O PAIN OR DISCOMFORT. TELE MONITOR WITH SR 77. ON VENTILATOR WITH FIO2 28%. GT FEEDING OF JEVITY AT 60 ML/HR AND 100 ML WATER Q6H. ON IVPB VANCO AND ZOSYN.
[2022-09-04] VITALS: BP 135/67
--- NOTE | 2022-09-04 00:04 | NUR ---
NURSE NOTES VSS. AFEB. NO C/O PAIN OR DISCOMFORT. TELE MONITOR WITH SR 85
[2022-09-04] MEDS ORDERED: PIPERACILLIN/TAZOBACTAM 4.5 GM VIAL IV ONE (02:43)
--- NOTE | 2022-09-04 02:44 | NUR ---
NURSE NOTES IVPB ZOSYN 3.375 WAS GIVEN AT 2049; THE MD CHANGED ORDER TO ZOSYN 4.5 AT 2156. PHARMACY WAS CALLED TO ADJUST THE TIME, PERSON STATED MD HAD ORDERED FOR [place]. BUT THIS 4.5 DOSE IS NOT AVAILABLE ON [facility]. NURSE MONITORING ENGINEER WAS NOTIFIED TO [facility] IF SHE CAN OBTAIN THE MED IN PHARMACY. SHE IS NOT ABLE TO. THEN SHE SAYS DOSE WAS MISSED. BUT THE PREVIOUS DOSE WAS AT 2049, WHICH WAS ONLY 3.5 HRS SINCE THAT TIME IF GIVEN AT [place]. PHARMACY WAS CALLED TO ADJUST THE TIME TO AM, SINCE THIS DOSE ISN'T AVAILABLE IN THE [facility]MNIC[facility]. CHARGE NURSE AND THIS NURSE ALSO CHECKED THE OMNICELL.
--- NOTE | 2022-09-04 02:55 | NUR ---
NURSE NOTES NURSING INDUSTRIAL TWISTING MACHINE OPERATOR WAS ABLE TO LOCATE THE 4.5 GM IN ER. ER NURSE BROUGHT THE ZOSYN 4.5 GM TO [facility] SO THIS NURSE CAN GIVE THE ATB. THE MED IS EVERY 6 HRS, AND NOW IS ABOUT 5 HRS FROM LAST ZOSYN DOSE. THIS NURSE CALLED THE NURSING INDUSTRIAL TWISTING MACHINE OPERATOR AND SHE SAYS SHE WILL CALL THE PHARMACY ABOUT THIS. THE ADMINISTRATION TIME SHOULD BE [id number]
[2022-09-04 04:00] VITALS: BP 126/65
--- NOTE | 2022-09-04 04:00 | NUR ---
NURSE NOTES VSS. AFEB. NO SXS OF PAIN OR DISCOMFORT. TELE WITH ST 102.
[2022-09-04] MEDS ORDERED: PIPERACILLIN/TAZOBACTAM 4.5 GM in DEXTROSE 5% 50 ML IV SCH ×3 (06:00)
[2022-09-04 06:15] LABS: ANION GAP 9.6 (8-16); CARBON DIOXIDE 32.5 mmol/L (21-32); CREATININE 0.6 mg/dL (0.6-1.3); POTASSIUM 4.1 mmol/L (3.5-5.1)
[2022-09-04] MEDS ORDERED: DOCUSATE 100 MG/10 ML UDC GT PRN (07:00)
--- NOTE | 2022-09-04 07:30 | NUR ---
NURSE REPORT REPORT GIVEN TO DAYSNDFT NURSE GARZA TO ASSUME CARE OF PATIENT. ALL QUESTIONS ANSWERED. TERE OZUNA RN
[2022-09-04 08:00] VITALS: BP 167/109
[2022-09-04] MEDS ORDERED: IV Zosyn IV (09:23)
[2022-09-04 09:52] VITALS: BP 92/45
[2022-09-04] MEDS: GLYCOPYRROLATE 1 MG TAB GT SCH ×3 (11:11→17:00)
[2022-09-04] MEDS: BACLOFEN 10 MG TAB PO SCH ×3 (11:12→17:00)
[2022-09-04] MEDS: POLYETHYLENE GLYCOL 17 GM/PKT PO SCH (11:13)
[2022-09-04] MEDS: methIMAzole 5 MG TAB PO SCH (11:14)
[2022-09-04] MEDS: CALCIUM CARBONATE 500 MG TAB GT SCH ×2 (11:16→21:34)
[2022-09-04] MEDS: bisacodyL 10 MG SUPP RC SCH (11:19)
[2022-09-04 12:00] VITALS: BP 113/59
[2022-09-04] MEDS: PIPERACILLIN/TAZOBACTAM 4.5 GM in DEXTROSE 5% 100 ML IV SCH ×2 (14:04→18:00)
[2022-09-04] MEDS: NACL 0.9% 1,000 ML IV SCH (14:40)
[2022-09-04 20:00] VITALS: BP 113/59
--- NOTE | 2022-09-04 20:10 | NUR ---
RESTING ON BED.PT IS SWEATING.HR IS HIGH.RESP.UNLABORED ON VENTILATOR.IVF INFUSING WELL.GT FEEDING IS IN PROGRESS. WILL CONT.MONITORING.
--- NOTE | 2022-09-04 22:49 | NUR ---
0800 RECIEVED PT FROM JOSHUA ROSALES. NO ACUTE DISTRESS NOTED AT THIS TIME. [id number].
--- NOTE | 2022-09-04 22:50 | NUR ---
1999 REPORT OFF TO NELLIE ROSALES PT RESTING IN BED. NO ACUTE DISTRESS NOTED AT THIS TIME. [id number].
[2022-09-05] VITALS: BP 115/60
[2022-09-05] MEDS: diazePAM 5 MG TAB GT PRN ×3 (00:08→20:46)
[2022-09-05] MEDS: PIPERACILLIN/TAZOBACTAM 4.5 GM in DEXTROSE 5% 100 ML IV SCH ×5 (00:10→23:20)
[2022-09-05] MEDS: NACL 0.9% 1,000 ML IV SCH (00:19)
--- NOTE | 2022-09-05 02:00 | NUR ---
HR STILL IS HIGH.VALIUM GIVEN,DIDN'T WORK.SENT MESSAGE FOR MD.WAITING FOR ORDER. CHECKED BW=468.
[2022-09-05 04:00] VITALS: BP 115/60
[2022-09-05] MEDS ORDERED: NACL 0.9% 1,000 ML IV SCH (05:50)
--- NOTE | 2022-09-05 06:18 | NUR ---
SENT ANOTHER MESSAGE FOR MD.HE ORDERED 1 LIT.NS BOLUS.IT STARTED AND INFUSING WELL.HR HR IS IS FLUCTUATION.HE IS NOT SWEATING ANYMORE.WILL CONT.MONITOR HIM.
[2022-09-05 06:38] LABS: ANION GAP 16.4 (8-16); CARBON DIOXIDE 26.4 mmol/L (21-32); POTASSIUM 3.8 mmol/L (3.5-5.1)
--- NOTE | 2022-09-05 07:23 | NUR ---
ENDORSED TO AM RN IN STABLE CONDITION.1 LIT.NS BOLUS FINISHED.BA=477 NOW.
[2022-09-05 08:00] VITALS: BP 163/96
--- NOTE | 2022-09-05 08:00 | NUR ---
pt nonverbal.has trach with vent on setting AC rate 14,Fio2 24%,tidal volume 400 peep 5,tachycardia hr 140-150,has fever temp 100.9,give tylenol 325mg as prn order for elevate temp.sodium level 151, here and notified of pt condition cooling measure applied with ice packs.total care provided,continue to monitor pt.
[2022-09-05] MEDS: CALCIUM CARBONATE 500 MG TAB GT SCH ×2 (08:55→20:42)
[2022-09-05] MEDS: GLYCOPYRROLATE 1 MG TAB GT SCH ×3 (08:55→18:12)
[2022-09-05] MEDS: POLYETHYLENE GLYCOL 17 GM/PKT PO SCH (08:55)
[2022-09-05] MEDS: methIMAzole 5 MG TAB PO SCH ×4 (08:55→20:43)
[2022-09-05] MEDS: ACETAMINOPHEN 325 MG TAB PO SCH ×3 (08:56→20:47)
[2022-09-05] MEDS: BACLOFEN 10 MG TAB PO SCH ×3 (08:56→18:12)
[2022-09-05] MEDS: MIDODRINE 5 MG TAB PO SCH ×3 (09:55→20:41)
--- NOTE | 2022-09-05 11:18 | NUR ---
@1040 [employer] ARCHITECT STATED THEY NEED RT TO ROOM 123B. RT WENT TO ROOM PT WAS BEING BAGGED BY RN. RN STATED THAT THE VENT JUST SHUT OFF. RT CHECKED PLUG VENT WAS PLUGGED INTO RED OUTLET BUT IT LOOKED LIKE THE OUT LET WAS PUSHED IN. PT WAS NOT IN DISTRESS AND MAINTAINED GOOD NORMAL SATURATION. VENT WAS SWITCHED OUT FOR A NEW ONE AND WAS PLUGGED INTO A DIFFERENT RED OUTLET. PT IS BACK ON THE VENT AND CONTINUES TO BE STABLE. NEW HME AND SUCTION SABILLON WERE CHANGED WELL. WILL CONTINUE TO MONITOR. SPOKE TO TROY POLANCO ABOUT THE SITUATION AND IF WE COULD CALL ENGINEERING TO LOOK OUT THE OUTLETS PREET. TROY POLANCO STATED HE WILL GO SEE WHAT IS GOING ON AND FURTHER ASSESS. WORK ORDER WILL BE PUT IN FOR VENT.
[2022-09-05] MEDS: bisacodyL 10 MG SUPP RC SCH (11:42)
--- NOTE | 2022-09-05 12:00 | NUR ---
hr decreased to 110-120,pt restless and agitated at times,give valium 5mg as prn order hourly rounds made,safety maintained.
[2022-09-05 16:00] VITALS: BP 121/76
--- NOTE | 2022-09-05 17:11 | NUR ---
CHECKED ON PT. MOTHER WAS IN THE ROOM. PT LYING ON CIRCUIT, VENT ALARMING. I FIXED THE CIRCUIT AND STATED TO KEEP THE CIRCUIT UP. WILL CONTINUE TO MONITOR.
--- NOTE | 2022-09-05 18:00 | NUR ---
afebrile,vss,sinus tachy hr 90-100's.no acute distress noted tolerated tube feeding,no residual per GT.feeding bottle and tube changed.give IV antibiotic due,no adverse reactions noted.
--- NOTE | 2022-09-05 19:15 | NUR ---
PATIENT LYING ON THE BED, HOB ELEVATED FOR ASPIRATION PRECAUTIONS, PATIENT IS AWAKE, IS TRACH TO VENT, SETTING FI02 30%, VT 400, RATE 14, PEEP 5. PATIENT IN NO SIGNS OF ACUTE DISTRESS, IS NOT SHOWING ANY SIGNS OF PAIN. JEVITY 1.2 KENDRA RUNNING @60ML/HR VIA GTUBE. ALL SAFETY MEASURES IN PLACE.
[2022-09-05 20:00] VITALS: BP 150/71
--- NOTE | 2022-09-05 20:47 | NUR ---
SCHEDULED MEDICATIONS GIVEN VIA GTUBE, 0 RESIDUAL NOTED. PRN TYLENOL GIVEN ORDERED, PATIENT'S TEMP 101.3, COOLING MEASURES IN PLACE. ALL SAFETY MEASURES MAINTAINED.
--- NOTE | 2022-09-05 22:30 | NUR ---
PATIENT IS ASLEEP, CALM, TEMP IS 97.7. WILL CONTINUE TO MONITOR THE PATIENT.
--- NOTE | 2022-09-05 23:20 | NUR ---
SCHEDULED IV ANTIBIOTIC GIVEN ORDERED.
[2022-09-06] VITALS: BP 116/74
--- NOTE | 2022-09-06 01:53 | NUR ---
PATIENT IS ASLEEP, NO SIGNS OF DISTRESS NOTED, IS NOT SHOWING ANY SIGNS OF PAIN. P 64, RESP 14, O2 100%, ALL SAFETY MEASURES MAINTAINED.
--- NOTE | 2022-09-06 03:57 | NUR ---
BEDSIDE CARE DONE, MOUTH CARE DONE. NO SIGNS OF DISTRESS NOTED. BED IN LOW AND LOCKED POSITION. WILL CONTINUE TO MONITOR THE PATIENT.
[2022-09-06 04:00] VITALS: BP 129/69
[2022-09-06] MEDS: MIDODRINE 5 MG TAB PO SCH ×3 (04:22→20:47)
[2022-09-06] MEDS: methIMAzole 5 MG TAB PO SCH ×3 (04:23→20:48)
--- NOTE | 2022-09-06 04:23 | NUR ---
SCHEDULED MEDICATION GIVEN VIA GTUBE, O RESIDUAL NOTED. MIDODRINE NOT GIVEN, BP 129/69.
[2022-09-06] MEDS: PIPERACILLIN/TAZOBACTAM 4.5 GM in DEXTROSE 5% 100 ML IV SCH ×4 (05:16→23:21)
[2022-09-06 06:40] LABS: ANION GAP 10.6 (8-16); CREATININE 0.6 mg/dL (0.6-1.3); POTASSIUM 3.6 mmol/L (3.5-5.1)
--- NOTE | 2022-09-06 07:11 | NUR ---
ENDORSED TO DAY NURSE FOR CONTINUITY OF CARE. PATIENT IN STABLE CONDITION.
[2022-09-06 08:00] VITALS: BP 117/89
--- NOTE | 2022-09-06 08:00 | NUR ---
PT NONVERBAL,MENTAL DELAYED,HAS TRACH WITH VENTILATOR ON AC RATE 14,FIO2 30%,TIDAL VOLUME 400,PEEP 5,SAT 100%,SINUS RHYTHM SINUS TACHY HR 45=346, CAME AND SEEN PT.ORDER RECEIVED TO NOTIFY FOR CARDIOLOGY CONSULT.
[2022-09-06] MEDS: CALCIUM CARBONATE 500 MG TAB GT SCH ×2 (08:50→20:47)
[2022-09-06] MEDS: GLYCOPYRROLATE 1 MG TAB GT SCH ×3 (08:50→17:44)
[2022-09-06] MEDS: bisacodyL 10 MG SUPP RC SCH (08:50)
[2022-09-06] MEDS: BACLOFEN 10 MG TAB PO SCH ×3 (08:50→17:44)
[2022-09-06] MEDS: POLYETHYLENE GLYCOL 17 GM/PKT PO SCH (08:50)
[2022-09-06] MEDS: diazePAM 5 MG TAB GT PRN (09:08)
[2022-09-06 12:00] VITALS: BP 114/62
--- NOTE | 2022-09-06 12:00 | NUR ---
TEMP 99.7,CONTINUE AND GIVE IV ANTIBIOTIC PER ORDER. PT TOLERATED TUBE FEEDING NO RESIDUAL PER GT CONTINUE JEVITY 1.2 RUNS 50CC PER HR VIA GT. INCONTINENT OF 1 BM SOFT YELLOW STOOL.CARLOS CARE RENDERED TOTAL CARE PROVIDED.
[2022-09-06 14:51] LABS: BASOPHILS # (AUTO) 0.1 K/uL (0.00-0.22); BASOPHILS % (AUTO) 0.8 % (0.0-2.0); EOSINOPHILS # (AUTO) 0.1 K/uL (0-0.4); EOSINOPHILS % (AUTO) 1.3 % (0.0-4.0); HEMOGLOBIN 12.6 g/dL (12.0-18.0); LYMPHOCYTES # (AUTO) 2.7 K/uL (2.0-11.5); LYMPHOCYTES % (AUTO) 37.2 % (20.5-51.1); MEAN CORPUSCULAR HEMOGLOBIN 33 pg (27-31); MEAN CORPUSCULAR HGB CONC 35 g/dL (33-37); MEAN CORPUSCULAR VOLUME 94.6 fL (80-94); MONOCYTES # (AUTO) 0.9 K/uL (0.8-1.0); MONOCYTES % (AUTO) 12.9 % (1.7-9.3); NEUTROPHILS # (AUTO) 3.5 K/uL (1.8-7.7); NEUTROPHILS % (AUTO) 47.8 % (42.2-75.2); PLATELET COUNT (AUTO) 274 K/uL (140-450); RED BLOOD CELL COUNT(AUTO) 3.81 MIL/uL (4.20-6.10); RED CELL DISTRIBUTION WIDTH 12.7 % (11.6-13.7); WHITE BLOOD COUNT (AUTO) 7.2 K/uL (4.8-10.8)
[2022-09-06 16:00] VITALS: BP 112/52
--- NOTE | 2022-09-06 16:00 | NUR ---
AFEBRILE,VSS,SINUS RHYTHM HR 60-100.PT RESTING WELL IN BED NO ACUTE DISTRESS OBSERVED.HOURLY ROUNDS MADE,SAFETY MAINTAINED
--- NOTE | 2022-09-06 19:10 | NUR ---
PATIENT IS ASLEEP, HOB ELEVATED FOR ASPIRATION PRECAUTIONS, NO SIGNS OF DISTRESS NOTED, PATIENT IS TRACH TO VENT, SETTINGS FIO2 30%, VT 400, RATE 14 AND PEEP 5. PATIENT IS ON JEVITY 1.2 KENDRA VIA GTUBE. ALL SAFETY MEASURES MAINTAINED.
[2022-09-06 20:00] VITALS: BP 101/55
--- NOTE | 2022-09-06 20:48 | NUR ---
SCHEDULED MEDICATIONS GIVEN ORDERED VIA GTUBE, O RESIDUAL NOTED. MOUTH CARE DONE. ALL SAFETY MEASURES IN PLACE.
--- NOTE | 2022-09-06 22:00 | NUR ---
BEDSIDE CARE DONE, PATIENT IN NO ACUTE DISTRESS, PATIENT IS NOT SHOWING ANY SIGNS OF PAIN. HOB ELEVATED FOR ASPIRATION PRECAUTIONS. ALL OTHER SAFETY MEASURES MAINTAINED.
--- NOTE | 2022-09-06 23:21 | NUR ---
SCHEDULED IV ANTIBIOTIC GIVEN ORDERED.
[2022-09-07] VITALS: BP 121/62
[2022-09-07 04:00] VITALS: BP 105/58
[2022-09-07] MEDS: MIDODRINE 5 MG TAB PO SCH ×2 (04:49→12:03)
[2022-09-07] MEDS: methIMAzole 5 MG TAB PO SCH ×2 (04:49→12:03)
--- NOTE | 2022-09-07 04:50 | NUR ---
SCHEDULED MEDICATIONS GIVEN ORDERED VIA GTUBE, 0 RESIDUAL NOTED.
[2022-09-07] MEDS: PIPERACILLIN/TAZOBACTAM 4.5 GM in DEXTROSE 5% 100 ML IV SCH ×2 (05:32→12:03)
[2022-09-07 06:00] LABS: ANION GAP 8.5 (8-16); CARBON DIOXIDE 33.7 mmol/L (21-32); CREATININE 0.6 mg/dL (0.6-1.3); POTASSIUM 4.2 mmol/L (3.5-5.1)
[2022-09-07 06:01] LABS: FREE T4 (FREE THYROXINE) 0.82 ng/dL (0.76-1.46); THYROID STIMULATING HORMONE 9.4 uIU/mL (0.34-3.74)
--- NOTE | 2022-09-07 07:23 | NUR ---
ENDORSED PATIENT TO DAY NURSE FOR CONTINUITY OF CARE. PATIENT IN STABLE CONDITION.
[2022-09-07] MEDS: POLYETHYLENE GLYCOL 17 GM/PKT PO SCH (09:00)
[2022-09-07] MEDS: bisacodyL 10 MG SUPP RC SCH (09:00)
[2022-09-07] MEDS: GLYCOPYRROLATE 1 MG TAB GT SCH ×2 (09:07→12:03)
[2022-09-07] MEDS: CALCIUM CARBONATE 500 MG TAB GT SCH (09:07)
[2022-09-07] MEDS: BACLOFEN 10 MG TAB PO SCH ×2 (09:07→12:03)
--- NOTE | 2022-09-07 13:37 | NUR ---
RECEIVED ORDER FOR PATENT TO GO BACK TO SNF FOR CONTINUE OF CARE. FAXED [facility] ALL PAPERWORK. RECEIVED CALL FROM SU AT [facility] LOCATED AT [address] [place] [address]. PATIENT WAS ACCEPTED BACK AND WILL BE GOING TO ROOM 24A UNDER DR MUNSON. TRANSPORTATION SET UP WITH TITA AT [facility] WITH A 1600 POWER SHOVEL OPERATOR TIME. NURSE CODY AND MOTHER STAN AWARE OF THE ABOVE INFORMATION.
[2022-09-07 15:23] VITALS: BP 146/54
== END 2022-09-07 17:00 | DRG 870 ==
LOC: MED 20:02 → MTU 09-01 00:48
PROC: 5A1955Z Respiratory Ventilation, Greater than 96 Consecutive Hours (ICD-10-PCS; principal; 2022-09-01)
DX: A41.9 Sepsis, unspecified organism (principal); J69.0 Pneumonitis due to inhalation of food and vomit; R53.2 Functional quadriplegia; J96.21 Acute and chronic respiratory failure with hypoxia; J15.1 Pneumonia due to Pseudomonas; G80.9 Cerebral palsy, unspecified; G40.909 Epilepsy, unspecified, not intractable, without status epilepticus; R65.20 Severe sepsis without septic shock; E05.90 Thyrotoxicosis, unspecified without thyrotoxic crisis or storm; K59.09 Other constipation; Z20.822 Contact with and (suspected) exposure to COVID-19; J45.909 Unspecified asthma, uncomplicated; Z93.1 Gastrostomy status; Z93.0 Tracheostomy status; Z88.2 Allergy status to sulfonamides
CPT/HCPCS: 36415; 36600; 71045; 80048; 80053; 80202; 81003; 82550; 82803; 82948; 83605; 83880; 84439; 84443; 84484; 85025; 87040; 87070; 87081; 87086; 87205; 89220; 93005; 94002; 94003; 96365; 96375; 99291; J0696; J2270; J2543; J3370; J7060

== ENCOUNTER 2023-04-17 17:11 | Emergency (ER) | payer OTHER ==
[~2023-04-17] VITALS: Ht 147.3 cm; Wt 46.7 kg
[2023-04-17 17:11] VITALS: PULSE 116; RESP 29; O2SAT 98
[~2023-04-17 17:11] MED LIST changes: +ACET-2619 PO; +BEN50 PO; +BISA-218 RC; +DOCU-299 GT; +IV Zosyn IV; +MIDO5TAB16 PO; +NA P133E RC; +PRON INH; +ROB1 PO
[2023-04-17 17:14] VITALS: BP 135/92; RESP 14; O2SAT 98
[2023-04-17 17:40] VITALS: O2SAT 100
[2023-04-17 19:43] VITALS: BP 108/73; PULSE 91; RESP 13; O2SAT 98
== END 2023-04-17 20:30 ==
LOC: MED 17:11
DX: K94.23 Gastrostomy malfunction (principal); I10 Essential (primary) hypertension; J45.909 Unspecified asthma, uncomplicated; M19.90 Unspecified osteoarthritis, unspecified site; Z99.11 Dependence on respirator [ventilator] status; Z86.69 Personal history of other diseases of the nervous system and sense organs; Z98.890 Other specified postprocedural states; Z79.899 Other long term (current) drug therapy; Z88.2 Allergy status to sulfonamides
CPT/HCPCS: 43762; 74240; 99284; Q0092

== ENCOUNTER 2023-06-06 07:55 | Emergency (ER) | payer OTHER ==
[~2023-06-06] VITALS: Ht 152.4 cm; Wt 72.6 kg
[2023-06-06 07:57] VITALS: BP 112/76; PULSE 97; RESP 14; TEMP 99.9; O2SAT 97
[2023-06-06 08:13] VITALS: BP 112/76; PULSE 97; RESP 14; TEMP 99.9
[2023-06-06 08:16] VITALS: O2SAT 97
[2023-06-06 10:21] VITALS: O2SAT 97
== END 2023-06-06 11:28 ==
LOC: MED 07:55
DX: K94.23 Gastrostomy malfunction (principal); Z79.899 Other long term (current) drug therapy
CPT/HCPCS: 43762; 74240; 99284; Q0092

== ENCOUNTER 2023-10-27 19:14 | Inpatient (IN) | payer OTHER ==
[~2023-10-27] VITALS: Ht 137.2 cm; Wt 41.4 kg
[~2023-10-27 19:14] MED LIST changes: -BISA-218 RC; +BISA-279 RC
[2023-10-27 19:23] VITALS: BP 144/76; PULSE 142; RESP 14; TEMP 101; O2SAT 100
[2023-10-27 19:33] VITALS: PULSE 130; RESP 25; O2SAT 97
[2023-10-27] MEDS ORDERED: cefTRIAXone 1,000 MG VIAL ONE (19:47)
[2023-10-27 19:48] VITALS: O2SAT 98
[2023-10-27 20:00] LABS: BASOPHILS % (AUTO) 0.2 % (0.0-2.0); EOSINOPHILS # (AUTO) 0.1 K/uL (0-0.4); EOSINOPHILS % (AUTO) 0.7 % (0.0-4.0); HEMATOCRIT 42.9 % (36-52); HEMOGLOBIN 15.3 g/dL (12.0-18.0); LYMPHOCYTES # (AUTO) 1.1 K/uL (2.0-11.5); LYMPHOCYTES % (AUTO) 11.8 % (20.5-51.1); MEAN CORPUSCULAR HEMOGLOBIN 33 pg (27-31); MEAN CORPUSCULAR HGB CONC 36 g/dL (33-37); MEAN CORPUSCULAR VOLUME 93.6 fL (80-94); MONOCYTES # (AUTO) 0.7 K/uL (0.8-1.0); MONOCYTES % (AUTO) 7.8 % (1.7-9.3); NEUTROPHILS # (AUTO) 7.4 K/uL (1.8-7.7); NEUTROPHILS % (AUTO) 79.5 % (42.2-75.2); PLATELET COUNT (AUTO) 271 K/uL (140-450); RED BLOOD CELL COUNT(AUTO) 4.58 MIL/uL (4.20-6.10); RED CELL DISTRIBUTION WIDTH 12.4 % (11.6-13.7); WHITE BLOOD COUNT (AUTO) 9.4 K/uL (4.8-10.8)
[2023-10-27 20:11] LABS: APPEARANCE,URINE CLEAR (CLEAR); BILIRUBIN,URINE NEGATIVE (NEGATIVE); BLOOD, URINE NEGATIVE (NEGATIVE); COLOR,URINE YELLOW (YELLOW); LEUKOCYTE ESTERASE ,URINE 3+ (NEGATIVE); NITRITE, URINE NEGATIVE (NEGATIVE); PROTEIN,URINE NEGATIVE (NEGATIVE); UGLUCOSE NEGATIVE (NEGATIVE); UROBILINOGEN,URINE 0.2 EU/dL (0.2 - 1)
[2023-10-27] MEDS: cefTRIAXone 1,000 MG in DEXT 5% MINI-BAG PLUS 50 ML IV ONE (20:11)
[2023-10-27] MEDS: NACL 0.9% 1,000 ML IV SCH (20:12)
[2023-10-27] MEDS: ACETAMINOPHEN 650 MG SUPP RC ONE (20:12)
[2023-10-27 20:13] LABS: ANION GAP 14.3 (8-16); CALCIUM 9.8 mg/dL (8.5-10.1); CARBON DIOXIDE 26.6 mmol/L (21-32); CREATININE 0.7 mg/dL (0.6-1.3); POTASSIUM 3.9 mmol/L (3.5-5.1)
[2023-10-27 20:20] LABS: BACTERIA,URINE >30 (MANY) /HPF (None Seen); RBC,URINE 0-5 /HPF (0-5); SQUAMOUS EPITHELIAL CELL,UR 0-3 (FEW) /LPF (0-3 (FEW)); WBC,URINE 16-25 (MOD) /HPF (0-5)
[2023-10-27 20:22] LABS: LACTIC ACID 0.8 mmol/L (0.4-2.0)
[2023-10-27 20:50] LABS: FLU A ANTIGEN negative (NEGATIVE); FLU B ANTIGEN NEGATIVE (NEGATIVE)
[2023-10-27 21:21] VITALS: PULSE 125; O2SAT 97
[2023-10-27] MEDS: KETOROLAC 30 MG/ML VIAL IVP ONE (22:10)
[2023-10-27] MEDS: NACL 0.9% 1,000 ML IV ONE (22:10)
[2023-10-27 22:19] VITALS: O2SAT 97
[2023-10-27] MEDS ORDERED: MORPHINE SULFATE 2 MG/ML SYR IVP PRN (23:35)
[2023-10-27] MEDS ORDERED: POLYETHYLENE GLYCOL 17 GM/PKT PO PRN (23:35)
[2023-10-27] MEDS ORDERED: MAG SULF 2000 MG/WATER PREMIX 50 ML IV PRN (23:35)
[2023-10-27] MEDS ORDERED: ONDANSETRON 4 MG/2 ML VIAL IVP PRN (23:35)
[2023-10-27] MEDS ORDERED: diazePAM 5 MG TAB GT PRN (23:40)
[2023-10-28] VITALS (15 sets, daily range): BP systolic 113–129; BP diastolic 49–75; PULSE 83–126; RESP 19–21; TEMP 98.4–98.9; O2SAT 95–100
[2023-10-28] MEDS: NACL 0.9% 1,000 ML IV SCH (00:55)
[2023-10-28] MEDS ORDERED: CRUSHER, PILL MC ONE (00:59)
[2023-10-28] MEDS: ACETAMINOPHEN 325 MG TAB GT PRN (01:28)
[2023-10-28] MEDS: MIDODRINE 5 MG TAB PO SCH (06:00)
[2023-10-28] MEDS: methIMAzole 5 MG TAB PO SCH (06:00)
[2023-10-28 06:23] LABS: BASOPHILS % (AUTO) 0.2 % (0.0-2.0); EOSINOPHILS # (AUTO) 0.1 K/uL (0-0.4); EOSINOPHILS % (AUTO) 0.6 % (0.0-4.0); HEMOGLOBIN 14.4 g/dL (12.0-18.0); LYMPHOCYTES # (AUTO) 1.1 K/uL (2.0-11.5); MEAN CORPUSCULAR HEMOGLOBIN 33 pg (27-31); MEAN CORPUSCULAR HGB CONC 35 g/dL (33-37); MEAN CORPUSCULAR VOLUME 94.5 fL (80-94); MONOCYTES % (AUTO) 10.5 % (1.7-9.3); NEUTROPHILS # (AUTO) 6.9 K/uL (1.8-7.7); NEUTROPHILS % (AUTO) 76.7 % (42.2-75.2); PLATELET COUNT (AUTO) 206 K/uL (140-450); RED BLOOD CELL COUNT(AUTO) 4.34 MIL/uL (4.20-6.10); RED CELL DISTRIBUTION WIDTH 12.2 % (11.6-13.7)
[2023-10-28 06:39] LABS: ALBUMIN 3.4 g/dL (3.4-5.0); ANION GAP 12.8 (8-16); CALCIUM 8.7 mg/dL (8.5-10.1); CREATININE 0.6 mg/dL (0.6-1.3); MAGNESIUM 2.1 mg/dL (1.8-2.4); POTASSIUM 3.8 mmol/L (3.5-5.1); TOTAL BILIRUBIN 0.8 mg/dL (0.0-1.0); TOTAL PROTEIN, SERUM 7.4 g/dL (6.4-8.2)
[2023-10-28] MEDS: GLYCOPYRROLATE 1 MG TAB GT SCH (10:27)
[2023-10-28] MEDS: HYDROcodone/APAP 5/325 MG 1 TAB TAB GT PRN (15:30)
[2023-10-28] MEDS ORDERED: VANCOMYCIN PER PHARMACY MC PRN (16:00)
[2023-10-28 16:22] LABS: BLOOD GAS PCO2 31.4 mmHg (35-45); BLOOD GAS PH 7.339 (7.35-7.45)
[2023-10-28 16:24] LABS: BLOOD GAS HCO3 16.5 mmol/L (22-26); BLOOD GAS PO2 113.7 mmHg (75-100)
[2023-10-28 16:25] LABS: BLOOD GAS O2 SAT% 98.4 % (92.0-98.5)
[2023-10-28] MEDS: VANCOMYCIN 750 MG in DEXTROSE 5% 250 ML IV SCH (17:02)
[2023-10-28] MEDS: PIPERACILLIN/TAZOBACTAM 3.375 GM in DEXTROSE 5% 50 ML IV SCH (20:15)
[2023-10-28] MEDS: diazePAM 5 MG TAB GT PRN (22:52)
[2023-10-29] VITALS (14 sets, daily range): BP systolic 104–142; BP diastolic 53–70; PULSE 82–129; RESP 18–28; TEMP 98.4–99.7; O2SAT 94–99
[2023-10-29 06:55] LABS: HEMATOCRIT 42.5 % (36-52); HEMOGLOBIN 14.9 g/dL (12.0-18.0); MEAN CORPUSCULAR HEMOGLOBIN 33 pg (27-31); MEAN CORPUSCULAR HGB CONC 35 g/dL (33-37); MEAN CORPUSCULAR VOLUME 93.8 fL (80-94); PLATELET COUNT (AUTO) 247 K/uL (140-450); RED BLOOD CELL COUNT(AUTO) 4.53 MIL/uL (4.20-6.10); RED CELL DISTRIBUTION WIDTH 12.3 % (11.6-13.7); WHITE BLOOD COUNT (AUTO) 6.6 K/uL (4.8-10.8)
[2023-10-29 07:23] LABS: ALBUMIN 3.6 g/dL (3.4-5.0); ANION GAP 15.8 (8-16); CALCIUM 9.3 mg/dL (8.5-10.1); CARBON DIOXIDE 23.4 mmol/L (21-32); CREATININE 0.7 mg/dL (0.6-1.3); MAGNESIUM 2.1 mg/dL (1.8-2.4); PHOSPHORUS 2.4 mg/dL (2.5-4.9); POTASSIUM 3.2 mmol/L (3.5-5.1); TOTAL BILIRUBIN 0.7 mg/dL (0.0-1.0)
[2023-10-29 08:04] LABS: LYMPHOCYTES % (MANUAL) 30 % (20-46); MONOCYTES % (MANUAL) 21 % (5-12); PLATELET ESTIMATE ADEQUATE
[2023-10-29] MEDS: KCL 20 MEQ IN 100 mL PREMIX 200 ML IV PRN (17:03)
[2023-10-30] VITALS (16 sets, daily range): BP systolic 114–155; BP diastolic 61–100; PULSE 85–140; RESP 16–30; TEMP 98–100.5; O2SAT 93–99
[2023-10-30 06:08] LABS: BASOPHILS % (AUTO) 0.4 % (0.0-2.0); EOSINOPHILS # (AUTO) 0.1 K/uL (0-0.4); EOSINOPHILS % (AUTO) 1.5 % (0.0-4.0); HEMATOCRIT 41.3 % (36-52); HEMOGLOBIN 14.4 g/dL (12.0-18.0); LYMPHOCYTES # (AUTO) 1.9 K/uL (2.0-11.5); LYMPHOCYTES % (AUTO) 23.3 % (20.5-51.1); MEAN CORPUSCULAR HEMOGLOBIN 33 pg (27-31); MEAN CORPUSCULAR HGB CONC 35 g/dL (33-37); MEAN CORPUSCULAR VOLUME 93.2 fL (80-94); MONOCYTES # (AUTO) 1.2 K/uL (0.8-1.0); MONOCYTES % (AUTO) 15.1 % (1.7-9.3); NEUTROPHILS # (AUTO) 4.8 K/uL (1.8-7.7); NEUTROPHILS % (AUTO) 59.7 % (42.2-75.2); PLATELET COUNT (AUTO) 290 K/uL (140-450); RED BLOOD CELL COUNT(AUTO) 4.44 MIL/uL (4.20-6.10); RED CELL DISTRIBUTION WIDTH 12.4 % (11.6-13.7)
[2023-10-30 06:27] LABS: ALBUMIN 3.6 g/dL (3.4-5.0); ANION GAP 12.3 (8-16); CALCIUM 9.8 mg/dL (8.5-10.1); CREATININE 0.7 mg/dL (0.6-1.3); MAGNESIUM 2.4 mg/dL (1.8-2.4); PHOSPHORUS 2.3 mg/dL (2.5-4.9); POTASSIUM 3.3 mmol/L (3.5-5.1); TOTAL BILIRUBIN 0.6 mg/dL (0.0-1.0)
[2023-10-31] VITALS (13 sets, daily range): BP systolic 109–149; BP diastolic 66–87; PULSE 78–146; RESP 17–31; TEMP 97.5–99.5; O2SAT 97–100
[2023-10-31 06:38] LABS: BASOPHILS % (AUTO) 0.6 % (0.0-2.0); EOSINOPHILS # (AUTO) 0.4 K/uL (0-0.4); EOSINOPHILS % (AUTO) 7.2 % (0.0-4.0); HEMATOCRIT 40.9 % (36-52); HEMOGLOBIN 14.2 g/dL (12.0-18.0); LYMPHOCYTES # (AUTO) 2.3 K/uL (2.0-11.5); LYMPHOCYTES % (AUTO) 40.6 % (20.5-51.1); MEAN CORPUSCULAR HEMOGLOBIN 33 pg (27-31); MEAN CORPUSCULAR HGB CONC 35 g/dL (33-37); MEAN CORPUSCULAR VOLUME 94.5 fL (80-94); MONOCYTES # (AUTO) 0.8 K/uL (0.8-1.0); MONOCYTES % (AUTO) 14.5 % (1.7-9.3); NEUTROPHILS # (AUTO) 2.1 K/uL (1.8-7.7); NEUTROPHILS % (AUTO) 37.1 % (42.2-75.2); PLATELET COUNT (AUTO) 296 K/uL (140-450); RED BLOOD CELL COUNT(AUTO) 4.32 MIL/uL (4.20-6.10); RED CELL DISTRIBUTION WIDTH 12.6 % (11.6-13.7); WHITE BLOOD COUNT (AUTO) 5.7 K/uL (4.8-10.8)
[2023-10-31 07:26] LABS: ALBUMIN 3.6 g/dL (3.4-5.0); ANION GAP 11.9 (8-16); CALCIUM 9.7 mg/dL (8.5-10.1); CARBON DIOXIDE 30.7 mmol/L (21-32); CREATININE 0.9 mg/dL (0.6-1.3); MAGNESIUM 2.6 mg/dL (1.8-2.4); PHOSPHORUS 4.2 mg/dL (2.5-4.9); POTASSIUM 3.6 mmol/L (3.5-5.1); TOTAL BILIRUBIN 0.6 mg/dL (0.0-1.0); TOTAL PROTEIN, SERUM 8.1 g/dL (6.4-8.2)
[2023-10-31 08:16] LABS: BLOOD GAS BASE EXCESS 3.7 mmol/L (-2.0-2.0); BLOOD GAS HCO3 28.1 mmol/L (22-26); BLOOD GAS PCO2 41.6 mmHg (35-45); BLOOD GAS PH 7.447 (7.35-7.45); BLOOD GAS PO2 109.2 mmHg (75-100)
[2023-10-31 08:17] LABS: BLOOD GAS O2 SAT% 98.3 % (92.0-98.5)
[2023-11-01] VITALS (15 sets, daily range): BP systolic 118–150; BP diastolic 39–114; PULSE 83–145; RESP 18–33; TEMP 98.2–102.1; O2SAT 95–100
[2023-11-01] MEDS: NACL 0.9% 1,000 ML IV ONE (01:03)
[2023-11-01 06:24] LABS: BASOPHILS # (AUTO) 0.1 K/uL (0.00-0.22); BASOPHILS % (AUTO) 0.9 % (0.0-2.0); EOSINOPHILS # (AUTO) 0.2 K/uL (0-0.4); EOSINOPHILS % (AUTO) 2.4 % (0.0-4.0); HEMATOCRIT 43.4 % (36-52); HEMOGLOBIN 14.9 g/dL (12.0-18.0); LYMPHOCYTES # (AUTO) 1.7 K/uL (2.0-11.5); LYMPHOCYTES % (AUTO) 25.8 % (20.5-51.1); MEAN CORPUSCULAR HEMOGLOBIN 33 pg (27-31); MEAN CORPUSCULAR HGB CONC 34 g/dL (33-37); MEAN CORPUSCULAR VOLUME 94.8 fL (80-94); MONOCYTES # (AUTO) 0.8 K/uL (0.8-1.0); MONOCYTES % (AUTO) 12.6 % (1.7-9.3); NEUTROPHILS # (AUTO) 3.9 K/uL (1.8-7.7); NEUTROPHILS % (AUTO) 58.3 % (42.2-75.2); PLATELET COUNT (AUTO) 315 K/uL (140-450); RED BLOOD CELL COUNT(AUTO) 4.58 MIL/uL (4.20-6.10); RED CELL DISTRIBUTION WIDTH 12.8 % (11.6-13.7); WHITE BLOOD COUNT (AUTO) 6.6 K/uL (4.8-10.8)
[2023-11-01 06:53] LABS: ALBUMIN 3.8 g/dL (3.4-5.0); ANION GAP 14.4 (8-16); CALCIUM 9.8 mg/dL (8.5-10.1); CARBON DIOXIDE 28.6 mmol/L (21-32); CREATININE 1.1 mg/dL (0.6-1.3); PHOSPHORUS 4.4 mg/dL (2.5-4.9); TOTAL BILIRUBIN 0.7 mg/dL (0.0-1.0); TOTAL PROTEIN, SERUM 8.5 g/dL (6.4-8.2)
[2023-11-01] MEDS ORDERED: ALBUTEROL SULFATE/IPRATROPIU 3 ML SOL IH PRN (12:10)
[2023-11-01] MEDS ORDERED: VANCOMYCIN PER PHARMACY MC PRN (13:05)
[2023-11-01] MEDS: VANCOMYCIN 500 MG in DEXTROSE 5% 100 ML IV SCH (14:10)
[2023-11-01] MEDS: ALBUTEROL SULFATE/IPRATROPIU 3 ML SOL IH SCH (14:21)
[2023-11-01] MEDS: METOPROLOL 5 MG/5 ML VIAL IV PRN (18:17)
[2023-11-02] VITALS (15 sets, daily range): BP systolic 99–139; BP diastolic 56–94; PULSE 20–135; RESP 14–28; TEMP 96.9–101.4; O2SAT 0–100
[2023-11-02 00:47] LABS: FLU A ANTIGEN negative (NEGATIVE); FLU B ANTIGEN NEGATIVE (NEGATIVE)
[2023-11-02 02:33] LABS: RSV NEGATIVE (NEGATIVE)
[2023-11-02] MEDS: MEROPENEM 1,000 MG in NACL 0.9% 50 ML IV SCH (04:09)
[2023-11-02] MEDS: MEROPENEM 1,000 MG VIAL IV ONE (04:22)
[2023-11-02 06:42] LABS: BASOPHILS # (AUTO) 0.1 K/uL (0.00-0.22); BASOPHILS % (AUTO) 0.8 % (0.0-2.0); EOSINOPHILS # (AUTO) 0.1 K/uL (0-0.4); EOSINOPHILS % (AUTO) 1.7 % (0.0-4.0); HEMOGLOBIN 14.1 g/dL (12.0-18.0); LYMPHOCYTES # (AUTO) 2.5 K/uL (2.0-11.5); LYMPHOCYTES % (AUTO) 31.3 % (20.5-51.1); MEAN CORPUSCULAR HEMOGLOBIN 33 pg (27-31); MEAN CORPUSCULAR HGB CONC 34 g/dL (33-37); MONOCYTES # (AUTO) 0.8 K/uL (0.8-1.0); MONOCYTES % (AUTO) 9.9 % (1.7-9.3); NEUTROPHILS # (AUTO) 4.6 K/uL (1.8-7.7); NEUTROPHILS % (AUTO) 56.3 % (42.2-75.2); PLATELET COUNT (AUTO) 308 K/uL (140-450); RED BLOOD CELL COUNT(AUTO) 4.32 MIL/uL (4.20-6.10); RED CELL DISTRIBUTION WIDTH 12.6 % (11.6-13.7); WHITE BLOOD COUNT (AUTO) 8.1 K/uL (4.8-10.8)
[2023-11-02 06:56] LABS: ALBUMIN 3.8 g/dL (3.4-5.0); ANION GAP 14.6 (8-16); CALCIUM 9.7 mg/dL (8.5-10.1); CARBON DIOXIDE 29.7 mmol/L (21-32); CREATININE 1.1 mg/dL (0.6-1.3); MAGNESIUM 2.8 mg/dL (1.8-2.4); PHOSPHORUS 3.8 mg/dL (2.5-4.9); POTASSIUM 4.3 mmol/L (3.5-5.1); TOTAL BILIRUBIN 0.7 mg/dL (0.0-1.0); TOTAL PROTEIN, SERUM 8.7 g/dL (6.4-8.2)
[2023-11-02] MEDS: MELATONIN 3 MG TAB PO PRN (20:53)
[2023-11-03] VITALS (15 sets, daily range): BP systolic 122–139; BP diastolic 47–84; PULSE 77–135; RESP 12–24; TEMP 97.1–99; O2SAT 96–99
[2023-11-03 07:13] LABS: BASOPHILS % (AUTO) 0.5 % (0.0-2.0); EOSINOPHILS # (AUTO) 0.4 K/uL (0-0.4); EOSINOPHILS % (AUTO) 5.2 % (0.0-4.0); HEMATOCRIT 39.8 % (36-52); HEMOGLOBIN 13.4 g/dL (12.0-18.0); LYMPHOCYTES # (AUTO) 2.3 K/uL (2.0-11.5); LYMPHOCYTES % (AUTO) 30.4 % (20.5-51.1); MEAN CORPUSCULAR HEMOGLOBIN 32 pg (27-31); MEAN CORPUSCULAR HGB CONC 34 g/dL (33-37); MEAN CORPUSCULAR VOLUME 94.7 fL (80-94); MONOCYTES # (AUTO) 0.6 K/uL (0.8-1.0); MONOCYTES % (AUTO) 8.1 % (1.7-9.3); NEUTROPHILS # (AUTO) 4.1 K/uL (1.8-7.7); NEUTROPHILS % (AUTO) 55.8 % (42.2-75.2); PLATELET COUNT (AUTO) 299 K/uL (140-450); RED BLOOD CELL COUNT(AUTO) 4.21 MIL/uL (4.20-6.10); RED CELL DISTRIBUTION WIDTH 12.4 % (11.6-13.7); WHITE BLOOD COUNT (AUTO) 7.4 K/uL (4.8-10.8)
[2023-11-03 07:39] LABS: ALBUMIN 3.5 g/dL (3.4-5.0); ANION GAP 12.1 (8-16); CALCIUM 9.4 mg/dL (8.5-10.1); CARBON DIOXIDE 30.6 mmol/L (21-32); CREATININE 0.9 mg/dL (0.6-1.3); MAGNESIUM 2.7 mg/dL (1.8-2.4); PHOSPHORUS 3.5 mg/dL (2.5-4.9); POTASSIUM 3.7 mmol/L (3.5-5.1); TOTAL BILIRUBIN 0.6 mg/dL (0.0-1.0); TOTAL PROTEIN, SERUM 8.2 g/dL (6.4-8.2)
[2023-11-04] VITALS (13 sets, daily range): BP systolic 96–146; BP diastolic 53–87; PULSE 61–133; RESP 10–19; TEMP 97.7–100; O2SAT 97–100
[2023-11-04 06:49] LABS: BASOPHILS % (AUTO) 0.6 % (0.0-2.0); EOSINOPHILS # (AUTO) 0.3 K/uL (0-0.4); HEMATOCRIT 38.2 % (36-52); HEMOGLOBIN 12.9 g/dL (12.0-18.0); LYMPHOCYTES # (AUTO) 2.4 K/uL (2.0-11.5); LYMPHOCYTES % (AUTO) 36.2 % (20.5-51.1); MEAN CORPUSCULAR HEMOGLOBIN 32 pg (27-31); MEAN CORPUSCULAR HGB CONC 34 g/dL (33-37); MEAN CORPUSCULAR VOLUME 94.8 fL (80-94); MONOCYTES # (AUTO) 0.6 K/uL (0.8-1.0); MONOCYTES % (AUTO) 9.3 % (1.7-9.3); NEUTROPHILS # (AUTO) 3.3 K/uL (1.8-7.7); NEUTROPHILS % (AUTO) 49.9 % (42.2-75.2); PLATELET COUNT (AUTO) 312 K/uL (140-450); RED BLOOD CELL COUNT(AUTO) 4.03 MIL/uL (4.20-6.10); RED CELL DISTRIBUTION WIDTH 12.5 % (11.6-13.7); WHITE BLOOD COUNT (AUTO) 6.7 K/uL (4.8-10.8)
[2023-11-04 07:49] LABS: ALBUMIN 3.6 g/dL (3.4-5.0); ANION GAP 13.4 (8-16); CALCIUM 9.4 mg/dL (8.5-10.1); CREATININE 0.9 mg/dL (0.6-1.3); MAGNESIUM 2.4 mg/dL (1.8-2.4); PHOSPHORUS 2.7 mg/dL (2.5-4.9); POTASSIUM 3.4 mmol/L (3.5-5.1); TOTAL BILIRUBIN 0.9 mg/dL (0.0-1.0)
[2023-11-04] MEDS: POTASSIUM CHLORIDE 20% 40 MEQ/15 ML UDC GT SCH (09:28)
[2023-11-04 11:19] LABS: TOTAL PROTEIN, SERUM 8.3 g/dL (6.4-8.2)
[2023-11-04] MEDS ORDERED: VANCOMYCIN PER PHARMACY MC PRN (11:45)
[2023-11-04] MEDS: VANCOMYCIN 500 MG in DEXTROSE 5% 100 ML IV SCH (14:00)
[2023-11-05] VITALS (17 sets, daily range): BP systolic 128–151; BP diastolic 56–91; PULSE 79–153; RESP 12–32; TEMP 97.1–100; O2SAT 6–100
[2023-11-05 07:15] LABS: BASOPHILS # (AUTO) 0.1 K/uL (0.00-0.22); BASOPHILS % (AUTO) 1.7 % (0.0-2.0); EOSINOPHILS # (AUTO) 0.2 K/uL (0-0.4); EOSINOPHILS % (AUTO) 2.6 % (0.0-4.0); HEMATOCRIT 42.1 % (36-52); HEMOGLOBIN 14.1 g/dL (12.0-18.0); LYMPHOCYTES # (AUTO) 2.1 K/uL (2.0-11.5); LYMPHOCYTES % (AUTO) 31.5 % (20.5-51.1); MEAN CORPUSCULAR HEMOGLOBIN 32 pg (27-31); MEAN CORPUSCULAR HGB CONC 34 g/dL (33-37); MEAN CORPUSCULAR VOLUME 94.6 fL (80-94); MONOCYTES # (AUTO) 0.8 K/uL (0.8-1.0); MONOCYTES % (AUTO) 12.6 % (1.7-9.3); NEUTROPHILS # (AUTO) 3.4 K/uL (1.8-7.7); NEUTROPHILS % (AUTO) 51.6 % (42.2-75.2); PLATELET COUNT (AUTO) 416 K/uL (140-450); RED BLOOD CELL COUNT(AUTO) 4.45 MIL/uL (4.20-6.10); RED CELL DISTRIBUTION WIDTH 12.6 % (11.6-13.7); WHITE BLOOD COUNT (AUTO) 6.6 K/uL (4.8-10.8)
[2023-11-05 08:15] LABS: ALBUMIN 4.2 g/dL (3.4-5.0); ANION GAP 16.5 (8-16); CALCIUM 10.2 mg/dL (8.5-10.1); CARBON DIOXIDE 26.6 mmol/L (21-32); CREATININE 0.8 mg/dL (0.6-1.3); MAGNESIUM 2.6 mg/dL (1.8-2.4); PHOSPHORUS 3.2 mg/dL (2.5-4.9); POTASSIUM 4.1 mmol/L (3.5-5.1); TOTAL BILIRUBIN 0.8 mg/dL (0.0-1.0); TOTAL PROTEIN, SERUM 9.2 g/dL (6.4-8.2)
[2023-11-05] MEDS ORDERED: METOPROLOL 5 MG/5 ML VIAL IV PRN ×2 (14:15→14:30)
[2023-11-05] MEDS: diazePAM 5 MG TAB GT PRN (14:40)
[2023-11-05] MEDS: PIPERACILLIN/TAZOBACTAM 4.5 GM in DEXTROSE 5% 100 ML IV SCH (17:33)
[2023-11-05] MEDS: METOPROLOL 5 MG/5 ML VIAL IV SCH (17:34)
[2023-11-06] VITALS (14 sets, daily range): BP systolic 101–152; BP diastolic 59–71; PULSE 112–156; RESP 12–38; TEMP 98.1–102.2; O2SAT 96–100
[2023-11-06] MEDS: MORPHINE SULFATE 4 MG/ML SYR IVP PRN (01:18)
[2023-11-06 06:45] LABS: BASOPHILS % (AUTO) 0.4 % (0.0-2.0); HEMOGLOBIN 15.5 g/dL (12.0-18.0); LYMPHOCYTES # (AUTO) 1.2 K/uL (2.0-11.5); LYMPHOCYTES % (AUTO) 12.2 % (20.5-51.1); MEAN CORPUSCULAR HEMOGLOBIN 32 pg (27-31); MEAN CORPUSCULAR HGB CONC 34 g/dL (33-37); MEAN CORPUSCULAR VOLUME 95.3 fL (80-94); MONOCYTES # (AUTO) 1.6 K/uL (0.8-1.0); MONOCYTES % (AUTO) 16.2 % (1.7-9.3); NEUTROPHILS # (AUTO) 7.2 K/uL (1.8-7.7); NEUTROPHILS % (AUTO) 71.2 % (42.2-75.2); PLATELET COUNT (AUTO) 448 K/uL (140-450); RED BLOOD CELL COUNT(AUTO) 4.82 MIL/uL (4.20-6.10); RED CELL DISTRIBUTION WIDTH 12.8 % (11.6-13.7); WHITE BLOOD COUNT (AUTO) 10.2 K/uL (4.8-10.8)
[2023-11-06 07:30] LABS: ALBUMIN 4.3 g/dL (3.4-5.0); ANION GAP 20.1 (8-16); CALCIUM 10.5 mg/dL (8.5-10.1); CARBON DIOXIDE 26.8 mmol/L (21-32); MAGNESIUM 3.2 mg/dL (1.8-2.4); PHOSPHORUS 2.7 mg/dL (2.5-4.9); POTASSIUM 4.9 mmol/L (3.5-5.1); TOTAL BILIRUBIN 1.2 mg/dL (0.0-1.0); TOTAL PROTEIN, SERUM 9.9 g/dL (6.4-8.2)
[2023-11-06] MEDS ORDERED: NACL 0.9% 1,000 ML IV SCH (08:05)
[2023-11-06] MEDS: BACLOFEN 10 MG TAB PEG SCH (09:42)
[2023-11-06] MEDS: DEXT 5% / NACL 0.45% 1,000 ML IV SCH (09:42)
[2023-11-06] MEDS ORDERED: DILTIAZEM 60 MG TAB PO ONE (10:50)
[2023-11-06] MEDS: DILTIAZEM 30 MG TAB PO SCH (13:25)
[2023-11-06 17:44] LABS: ANION GAP 22.6 (8-16); CALCIUM 9.4 mg/dL (8.5-10.1); CREATININE 1.8 mg/dL (0.6-1.3); POTASSIUM 3.6 mmol/L (3.5-5.1)
[2023-11-06] MEDS: NACL 0.9% 1,000 ML IV ONE (19:45)
[2023-11-07] VITALS (29 sets, daily range): BP systolic 70–140; BP diastolic 38–96; PULSE 103–132; RESP 14–38; TEMP 100.4–104.7; O2SAT 95–100
[2023-11-07] MEDS: METOPROLOL 25 MG TAB PO SCH (01:56)
[2023-11-07] MEDS: NACL 0.9% 1,000 ML IV ONE (03:30)
[2023-11-07] MEDS: NOREPINEPHRINE 4 MG in DEXTROSE 5% 250 ML IV PRN (03:30)
[2023-11-07 04:16] LABS: BLOOD GAS BASE EXCESS -10.3 mmol/L (-2.0-2.0); BLOOD GAS HCO3 18.2 mmol/L (22-26); BLOOD GAS O2 SAT% 99.5 % (92.0-98.5); BLOOD GAS PCO2 50.2 mmHg (35-45); BLOOD GAS PH 7.177 (7.35-7.45); BLOOD GAS PO2 257.6 mmHg (75-100)
[2023-11-07] MEDS ORDERED: SODIUM BICARBONATE 8.4% PFS 50 MEQ/50 ML SYR IVP ONE (04:50)
[2023-11-07] MEDS: SODIUM BICARBONATE 8.4% PFS 50 MEQ/50 ML SYR IVP ONE ×2 (04:55→06:05)
[2023-11-07] MEDS: LACTATED RINGERS 1,000 ML IV SCH (05:00)
[2023-11-07] MEDS ORDERED: VASOPRESSIN 40 UNITS in NACL 0.9% 250 ML IV PRN (05:50)
[2023-11-07 07:41] LABS: BASOPHILS # (AUTO) 0.1 K/uL (0.00-0.22); BASOPHILS % (AUTO) 0.6 % (0.0-2.0); HEMATOCRIT 37.8 % (36-52); HEMOGLOBIN 12.4 g/dL (12.0-18.0); LYMPHOCYTES # (AUTO) 1.7 K/uL (2.0-11.5); LYMPHOCYTES % (AUTO) 11.6 % (20.5-51.1); MEAN CORPUSCULAR HEMOGLOBIN 32 pg (27-31); MEAN CORPUSCULAR HGB CONC 33 g/dL (33-37); MEAN CORPUSCULAR VOLUME 96.8 fL (80-94); MONOCYTES % (AUTO) 13.6 % (1.7-9.3); NEUTROPHILS # (AUTO) 11.1 K/uL (1.8-7.7); NEUTROPHILS % (AUTO) 74.2 % (42.2-75.2); PLATELET COUNT (AUTO) 303 K/uL (140-450); RED BLOOD CELL COUNT(AUTO) 3.91 MIL/uL (4.20-6.10); RED CELL DISTRIBUTION WIDTH 13.7 % (11.6-13.7)
[2023-11-07 08:12] LABS: ALBUMIN 2.8 g/dL (3.4-5.0); ANION GAP 12.8 (8-16); CALCIUM 6.9 mg/dL (8.5-10.1); CARBON DIOXIDE 31.3 mmol/L (21-32); CREATININE 2.5 mg/dL (0.6-1.3); MAGNESIUM 2.7 mg/dL (1.8-2.4); PHOSPHORUS 4.8 mg/dL (2.5-4.9); POTASSIUM 3.1 mmol/L (3.5-5.1); TOTAL BILIRUBIN 0.8 mg/dL (0.0-1.0); TOTAL PROTEIN, SERUM 6.9 g/dL (6.4-8.2)
[2023-11-07 09:29] LABS: BLOOD GAS BASE EXCESS -4.7 mmol/L (-2.0-2.0); BLOOD GAS HCO3 21.3 mmol/L (22-26); BLOOD GAS PCO2 42.4 mmHg (35-45); BLOOD GAS PH 7.318 (7.35-7.45); BLOOD GAS PO2 223.7 mmHg (75-100)
[2023-11-07 09:30] LABS: BLOOD GAS O2 SAT% 99.4 % (92.0-98.5)
[2023-11-07] MEDS ORDERED: MORPHINE SULFATE 2 MG/ML SYR IVP PRN (09:45)
[2023-11-07] MEDS ORDERED: CALCIUM GLUCONATE 10% 1,000 MG in NACL 0.9% 50 ML IV ONE (15:50)
[2023-11-07] MEDS: DEXTROSE 5% 1,000 ML IV SCH (16:30)
[2023-11-07] MEDS: CALCIUM GLUC 1 GM/50 mL NS BAG 50 ML IV SCH (16:30)
[2023-11-08] VITALS (33 sets, daily range): BP systolic 65–143; BP diastolic 38–86; PULSE 87–118; RESP 14–33; TEMP 96.4–100.5; O2SAT 96–100
[2023-11-08 05:41] LABS: ANION GAP 10.4 (8-16); CALCIUM 7.2 mg/dL (8.5-10.1); CARBON DIOXIDE 29.4 mmol/L (21-32); CREATININE 1.9 mg/dL (0.6-1.3)
[2023-11-08 05:52] LABS: POTASSIUM 2.8 mmol/L (3.5-5.1)
[2023-11-08 08:16] LABS: HEMOGLOBIN 12.1 g/dL (12.0-18.0); MEAN CORPUSCULAR HEMOGLOBIN 31 pg (27-31); MEAN CORPUSCULAR HGB CONC 33 g/dL (33-37); MEAN CORPUSCULAR VOLUME 96.3 fL (80-94); PLATELET COUNT (AUTO) 173 K/uL (140-450); RED BLOOD CELL COUNT(AUTO) 3.84 MIL/uL (4.20-6.10); RED CELL DISTRIBUTION WIDTH 13.1 % (11.6-13.7); WHITE BLOOD COUNT (AUTO) 14.5 K/uL (4.8-10.8)
[2023-11-08] MEDS: POTASSIUM CHLORIDE 20% 40 MEQ/15 ML UDC GT SCH (09:40)
[2023-11-08 10:03] LABS: LYMPHOCYTES % (MANUAL) 30 % (20-46); METAMYELOCYTES % 2 % (0-0); MONOCYTES % (MANUAL) 4 % (5-12); PLATELET ESTIMATE ADEQUATE
[2023-11-08] MEDS: LIDOCAINE MPF 1% 10 MG/ML VIAL INJ SCH (10:24)
[2023-11-08] MEDS: LIDOCAINE MPF 1% 10 MG/ML VIAL INJ ONE (11:30)
[2023-11-08 16:53] LABS: BLOOD GAS BASE EXCESS 0.4 mmol/L (-2.0-2.0); BLOOD GAS HCO3 24.7 mmol/L (22-26); BLOOD GAS PCO2 38.9 mmHg (35-45); BLOOD GAS PH 7.421 (7.35-7.45); BLOOD GAS PO2 100.3 mmHg (75-100)
[2023-11-09] VITALS (24 sets, daily range): BP systolic 87–139; BP diastolic 53–94; PULSE 74–119; RESP 18–34; TEMP 97.2–100.9; O2SAT 98–100
[2023-11-09 06:56] LABS: BASOPHILS # (AUTO) 0.1 K/uL (0.00-0.22); BASOPHILS % (AUTO) 0.6 % (0.0-2.0); EOSINOPHILS # (AUTO) 0.1 K/uL (0-0.4); EOSINOPHILS % (AUTO) 1.5 % (0.0-4.0); HEMOGLOBIN 9.5 g/dL (12.0-18.0); LYMPHOCYTES # (AUTO) 1.4 K/uL (2.0-11.5); LYMPHOCYTES % (AUTO) 14.9 % (20.5-51.1); MEAN CORPUSCULAR HEMOGLOBIN 33 pg (27-31); MEAN CORPUSCULAR HGB CONC 34 g/dL (33-37); MEAN CORPUSCULAR VOLUME 95.9 fL (80-94); MONOCYTES # (AUTO) 0.6 K/uL (0.8-1.0); NEUTROPHILS # (AUTO) 7.4 K/uL (1.8-7.7); PLATELET COUNT (AUTO) 125 K/uL (140-450); RED BLOOD CELL COUNT(AUTO) 2.92 MIL/uL (4.20-6.10); RED CELL DISTRIBUTION WIDTH 12.9 % (11.6-13.7); WHITE BLOOD COUNT (AUTO) 9.6 K/uL (4.8-10.8)
[2023-11-09 07:19] LABS: ANION GAP 10.2 (8-16); CALCIUM 7.4 mg/dL (8.5-10.1); CARBON DIOXIDE 28.2 mmol/L (21-32); CREATININE 1.4 mg/dL (0.6-1.3); POTASSIUM 3.4 mmol/L (3.5-5.1)
[2023-11-09] MEDS: LIDOCAINE MPF 1% 10 MG/ML VIAL INJ SCH (11:00)
[2023-11-09] MEDS: LIDOCAINE MPF 1% 5 ML ONE ×2 (11:00→11:02)
[2023-11-10] VITALS (16 sets, daily range): BP systolic 87–143; BP diastolic 51–79; PULSE 71–115; RESP 20–37; TEMP 98.3–100.2; O2SAT 99–100
[2023-11-10] MEDS: LORazepam 2 MG/ML VIAL IM/IVP PRN (02:55)
[2023-11-10 05:22] LABS: BASOPHILS % (AUTO) 0.3 % (0.0-2.0); EOSINOPHILS # (AUTO) 0.2 K/uL (0-0.4); EOSINOPHILS % (AUTO) 2.3 % (0.0-4.0); HEMOGLOBIN 8.5 g/dL (12.0-18.0); LYMPHOCYTES # (AUTO) 0.9 K/uL (2.0-11.5); LYMPHOCYTES % (AUTO) 13.3 % (20.5-51.1); MEAN CORPUSCULAR HEMOGLOBIN 32 pg (27-31); MEAN CORPUSCULAR HGB CONC 34 g/dL (33-37); MEAN CORPUSCULAR VOLUME 95.4 fL (80-94); MONOCYTES # (AUTO) 0.4 K/uL (0.8-1.0); MONOCYTES % (AUTO) 5.8 % (1.7-9.3); NEUTROPHILS # (AUTO) 5.2 K/uL (1.8-7.7); NEUTROPHILS % (AUTO) 78.3 % (42.2-75.2); PLATELET COUNT (AUTO) 123 K/uL (140-450); RED BLOOD CELL COUNT(AUTO) 2.62 MIL/uL (4.20-6.10); RED CELL DISTRIBUTION WIDTH 12.8 % (11.6-13.7); WHITE BLOOD COUNT (AUTO) 6.6 K/uL (4.8-10.8)
[2023-11-10 06:22] LABS: ALBUMIN 2.2 g/dL (3.4-5.0); ANION GAP 10.5 (8-16); CALCIUM 7.8 mg/dL (8.5-10.1); CARBON DIOXIDE 28.1 mmol/L (21-32); CREATININE 1.3 mg/dL (0.6-1.3); MAGNESIUM 1.9 mg/dL (1.8-2.4); POTASSIUM 3.6 mmol/L (3.5-5.1); TOTAL BILIRUBIN 1.2 mg/dL (0.0-1.0); TOTAL PROTEIN, SERUM 5.6 g/dL (6.4-8.2)
[2023-11-10] MEDS: METOCLOPRAMIDE 10 MG/2 ML INJ VIAL IVP SCH (17:41)
[2023-11-10] MEDS: DOCUSATE 100 MG/10 ML UDC GT SCH (20:29)
[2023-11-11] VITALS (15 sets, daily range): BP systolic 106–147; BP diastolic 58–85; PULSE 95–129; RESP 22–36; TEMP 98.1–99.4; O2SAT 96–100
[2023-11-11 05:48] LABS: BASOPHILS % (AUTO) 0.2 % (0.0-2.0); EOSINOPHILS # (AUTO) 0.2 K/uL (0-0.4); EOSINOPHILS % (AUTO) 2.4 % (0.0-4.0); HEMATOCRIT 24.6 % (36-52); HEMOGLOBIN 8.5 g/dL (12.0-18.0); LYMPHOCYTES % (AUTO) 12.6 % (20.5-51.1); MEAN CORPUSCULAR HEMOGLOBIN 33 pg (27-31); MEAN CORPUSCULAR HGB CONC 35 g/dL (33-37); MEAN CORPUSCULAR VOLUME 94.3 fL (80-94); MONOCYTES # (AUTO) 0.7 K/uL (0.8-1.0); MONOCYTES % (AUTO) 8.7 % (1.7-9.3); NEUTROPHILS # (AUTO) 6.2 K/uL (1.8-7.7); NEUTROPHILS % (AUTO) 76.1 % (42.2-75.2); PLATELET COUNT (AUTO) 159 K/uL (140-450); RED CELL DISTRIBUTION WIDTH 12.7 % (11.6-13.7); WHITE BLOOD COUNT (AUTO) 8.1 K/uL (4.8-10.8)
[2023-11-11 06:06] LABS: ALBUMIN 2.3 g/dL (3.4-5.0); ANION GAP 10.8 (8-16); CALCIUM 8.3 mg/dL (8.5-10.1); CARBON DIOXIDE 28.7 mmol/L (21-32); CREATININE 1.3 mg/dL (0.6-1.3); MAGNESIUM 1.9 mg/dL (1.8-2.4); PHOSPHORUS 3.1 mg/dL (2.5-4.9); POTASSIUM 3.5 mmol/L (3.5-5.1); TOTAL BILIRUBIN 0.9 mg/dL (0.0-1.0); TOTAL PROTEIN, SERUM 6.3 g/dL (6.4-8.2)
[2023-11-12] VITALS (15 sets, daily range): BP systolic 107–124; BP diastolic 54–74; PULSE 98–152; RESP 20–31; TEMP 97.8–99; O2SAT 95–100
[2023-11-12 05:52] LABS: BASOPHILS % (AUTO) 0.5 % (0.0-2.0); EOSINOPHILS # (AUTO) 0.3 K/uL (0-0.4); EOSINOPHILS % (AUTO) 5.3 % (0.0-4.0); HEMATOCRIT 23.6 % (36-52); HEMOGLOBIN 8.1 g/dL (12.0-18.0); LYMPHOCYTES # (AUTO) 1.2 K/uL (2.0-11.5); LYMPHOCYTES % (AUTO) 18.6 % (20.5-51.1); MEAN CORPUSCULAR HEMOGLOBIN 33 pg (27-31); MEAN CORPUSCULAR HGB CONC 34 g/dL (33-37); MEAN CORPUSCULAR VOLUME 94.4 fL (80-94); MONOCYTES # (AUTO) 0.8 K/uL (0.8-1.0); NEUTROPHILS % (AUTO) 62.6 % (42.2-75.2); PLATELET COUNT (AUTO) 204 K/uL (140-450); RED CELL DISTRIBUTION WIDTH 12.4 % (11.6-13.7); WHITE BLOOD COUNT (AUTO) 6.4 K/uL (4.8-10.8)
[2023-11-12 06:47] LABS: ALBUMIN 2.3 g/dL (3.4-5.0); ANION GAP 10.4 (8-16); CALCIUM 8.6 mg/dL (8.5-10.1); CARBON DIOXIDE 29.4 mmol/L (21-32); CREATININE 1.1 mg/dL (0.6-1.3); MAGNESIUM 2.3 mg/dL (1.8-2.4); PHOSPHORUS 3.8 mg/dL (2.5-4.9); POTASSIUM 3.8 mmol/L (3.5-5.1); TOTAL BILIRUBIN 0.6 mg/dL (0.0-1.0); TOTAL PROTEIN, SERUM 6.7 g/dL (6.4-8.2)
[2023-11-12 07:02] LABS: THYROID STIMULATING HORMONE 12.98 uIU/mL (0.34-3.74)
[2023-11-12] MEDS: METOPROLOL 5 MG/5 ML VIAL IV ONE (21:06)
[2023-11-13] VITALS (19 sets, daily range): BP systolic 101–143; BP diastolic 53–85; PULSE 91–145; RESP 20–28; TEMP 97.2–99.6; O2SAT 96–100
[2023-11-13 06:19] LABS: ALBUMIN 2.3 g/dL (3.4-5.0); ANION GAP 8.8 (8-16); CALCIUM 8.8 mg/dL (8.5-10.1); CARBON DIOXIDE 32.4 mmol/L (21-32); CREATININE 1.1 mg/dL (0.6-1.3); MAGNESIUM 2.4 mg/dL (1.8-2.4); PHOSPHORUS 3.3 mg/dL (2.5-4.9); POTASSIUM 3.2 mmol/L (3.5-5.1); TOTAL BILIRUBIN 0.5 mg/dL (0.0-1.0); TOTAL PROTEIN, SERUM 7.2 g/dL (6.4-8.2)
[2023-11-13 06:22] LABS: BASOPHILS % (AUTO) 0.4 % (0.0-2.0); EOSINOPHILS # (AUTO) 0.2 K/uL (0-0.4); EOSINOPHILS % (AUTO) 3.9 % (0.0-4.0); HEMATOCRIT 24.2 % (36-52); HEMOGLOBIN 8.5 g/dL (12.0-18.0); LYMPHOCYTES # (AUTO) 1.2 K/uL (2.0-11.5); LYMPHOCYTES % (AUTO) 20.3 % (20.5-51.1); MEAN CORPUSCULAR HEMOGLOBIN 33 pg (27-31); MEAN CORPUSCULAR HGB CONC 35 g/dL (33-37); MEAN CORPUSCULAR VOLUME 93.8 fL (80-94); MONOCYTES % (AUTO) 16.3 % (1.7-9.3); NEUTROPHILS # (AUTO) 3.6 K/uL (1.8-7.7); NEUTROPHILS % (AUTO) 59.1 % (42.2-75.2); PLATELET COUNT (AUTO) 379 K/uL (140-450); RED BLOOD CELL COUNT(AUTO) 2.58 MIL/uL (4.20-6.10); RED CELL DISTRIBUTION WIDTH 12.2 % (11.6-13.7)
[2023-11-13 06:25] LABS: WHITE BLOOD COUNT (AUTO) 6.1 K/uL (4.8-10.8)
[2023-11-13] MEDS: PIPERACILLIN/TAZOBACTAM 4.5 GM in DEXTROSE 5% 100 ML IV SCH (12:40)
[2023-11-14] VITALS (23 sets, daily range): BP systolic 90–127; BP diastolic 44–86; PULSE 84–142; RESP 16–32; TEMP 97.7–98.5; O2SAT 97–100
[2023-11-14 06:14] LABS: BASOPHILS # (AUTO) 0.1 K/uL (0.00-0.22); BASOPHILS % (AUTO) 0.8 % (0.0-2.0); EOSINOPHILS # (AUTO) 0.2 K/uL (0-0.4); EOSINOPHILS % (AUTO) 2.6 % (0.0-4.0); HEMATOCRIT 26.1 % (36-52); HEMOGLOBIN 8.8 g/dL (12.0-18.0); LYMPHOCYTES # (AUTO) 2.2 K/uL (2.0-11.5); LYMPHOCYTES % (AUTO) 31.9 % (20.5-51.1); MEAN CORPUSCULAR HEMOGLOBIN 32 pg (27-31); MEAN CORPUSCULAR HGB CONC 34 g/dL (33-37); MEAN CORPUSCULAR VOLUME 94.2 fL (80-94); MONOCYTES # (AUTO) 1.1 K/uL (0.8-1.0); MONOCYTES % (AUTO) 16.9 % (1.7-9.3); NEUTROPHILS # (AUTO) 3.2 K/uL (1.8-7.7); NEUTROPHILS % (AUTO) 47.8 % (42.2-75.2); PLATELET COUNT (AUTO) 475 K/uL (140-450); RED BLOOD CELL COUNT(AUTO) 2.77 MIL/uL (4.20-6.10); RED CELL DISTRIBUTION WIDTH 12.2 % (11.6-13.7)
[2023-11-14 06:16] LABS: WHITE BLOOD COUNT (AUTO) 6.8 K/uL (4.8-10.8)
[2023-11-14 06:36] LABS: ALBUMIN 2.4 g/dL (3.4-5.0); ANION GAP 11.8 (8-16); CALCIUM 8.9 mg/dL (8.5-10.1); CARBON DIOXIDE 28.9 mmol/L (21-32); CREATININE 1.1 mg/dL (0.6-1.3); MAGNESIUM 2.4 mg/dL (1.8-2.4); PHOSPHORUS 3.8 mg/dL (2.5-4.9); POTASSIUM 3.7 mmol/L (3.5-5.1); TOTAL BILIRUBIN 0.4 mg/dL (0.0-1.0); TOTAL PROTEIN, SERUM 7.4 g/dL (6.4-8.2)
[2023-11-15] VITALS (27 sets, daily range): BP systolic 61–139; BP diastolic 25–110; PULSE 102–142; RESP 22–45; TEMP 97.7–100.8; O2SAT 94–100
[2023-11-15 05:53] LABS: BASOPHILS % (AUTO) 0.7 % (0.0-2.0); EOSINOPHILS # (AUTO) 0.2 K/uL (0-0.4); EOSINOPHILS % (AUTO) 2.5 % (0.0-4.0); HEMATOCRIT 23.4 % (36-52); LYMPHOCYTES # (AUTO) 1.3 K/uL (2.0-11.5); LYMPHOCYTES % (AUTO) 17.5 % (20.5-51.1); MEAN CORPUSCULAR HEMOGLOBIN 32 pg (27-31); MEAN CORPUSCULAR HGB CONC 34 g/dL (33-37); MEAN CORPUSCULAR VOLUME 94.3 fL (80-94); MONOCYTES % (AUTO) 13.3 % (1.7-9.3); NEUTROPHILS # (AUTO) 4.9 K/uL (1.8-7.7); PLATELET COUNT (AUTO) 554 K/uL (140-450); RED BLOOD CELL COUNT(AUTO) 2.48 MIL/uL (4.20-6.10); RED CELL DISTRIBUTION WIDTH 12.7 % (11.6-13.7); WHITE BLOOD COUNT (AUTO) 7.4 K/uL (4.8-10.8)
[2023-11-15 06:30] LABS: ALBUMIN 2.3 g/dL (3.4-5.0); CALCIUM 8.5 mg/dL (8.5-10.1); CARBON DIOXIDE 26.4 mmol/L (21-32); MAGNESIUM 2.2 mg/dL (1.8-2.4); PHOSPHORUS 4.1 mg/dL (2.5-4.9); POTASSIUM 3.4 mmol/L (3.5-5.1); TOTAL BILIRUBIN 0.4 mg/dL (0.0-1.0); TOTAL PROTEIN, SERUM 7.1 g/dL (6.4-8.2)
[2023-11-15] MEDS: levoFLOXacin 750 MG TAB GT SCH (09:31)
[2023-11-15] MEDS: HYDROcodone/APAP 5/325 MG 1 TAB TAB PO PRN (11:15)
[2023-11-15] MEDS: NACL 0.9% 1,000 ML IV SCH (12:35)
[2023-11-15] MEDS: NOREPINEPHRINE 8 MG in DEXTROSE 5% 250 ML IV PRN (14:54)
[2023-11-15] MEDS: ACETAMINOPHEN 650 MG/20.3 ML UDC GT PRN (19:46)
[2023-11-15] MEDS ORDERED: VANCOMYCIN PER PHARMACY MC PRN (22:30)
[2023-11-16] VITALS (34 sets, daily range): BP systolic 91–145; BP diastolic 35–93; PULSE 92–142; RESP 16–31; TEMP 97.8–101.2; O2SAT 94–100
[2023-11-16] MEDS: LORazepam 2 MG/ML VIAL IM/IVP PRN (01:49)
[2023-11-16 03:04] LABS: APPEARANCE,URINE CLEAR (CLEAR); BILIRUBIN,URINE NEGATIVE (NEGATIVE); BLOOD, URINE 2+ (NEGATIVE); COLOR,URINE YELLOW (YELLOW); LEUKOCYTE ESTERASE ,URINE NEGATIVE (NEGATIVE); NITRITE, URINE NEGATIVE (NEGATIVE); PH,URINE 7.5 (5.0-9.0); PROTEIN,URINE TRACE (NEGATIVE); UGLUCOSE NEGATIVE (NEGATIVE); UROBILINOGEN,URINE 0.2 EU/dL (0.2 - 1)
[2023-11-16 03:06] LABS: BACTERIA,URINE FEW /HPF (None Seen); MUCUS,URINE None Seen /LPF (None Seen); SQUAMOUS EPITHELIAL CELL,UR 0-3 (FEW) /LPF (0-3 (FEW)); WBC,URINE 0-5 /HPF (0-5)
[2023-11-16 05:36] LABS: BASOPHILS % (AUTO) 0.3 % (0.0-2.0); EOSINOPHILS % (AUTO) 0.3 % (0.0-4.0); HEMATOCRIT 23.2 % (36-52); HEMOGLOBIN 7.9 g/dL (12.0-18.0); LYMPHOCYTES # (AUTO) 0.9 K/uL (2.0-11.5); MEAN CORPUSCULAR HEMOGLOBIN 32 pg (27-31); MEAN CORPUSCULAR HGB CONC 34 g/dL (33-37); MEAN CORPUSCULAR VOLUME 94.5 fL (80-94); MONOCYTES % (AUTO) 12.2 % (1.7-9.3); NEUTROPHILS # (AUTO) 6.3 K/uL (1.8-7.7); NEUTROPHILS % (AUTO) 76.2 % (42.2-75.2); PLATELET COUNT (AUTO) 605 K/uL (140-450); RED BLOOD CELL COUNT(AUTO) 2.45 MIL/uL (4.20-6.10); RED CELL DISTRIBUTION WIDTH 12.8 % (11.6-13.7); WHITE BLOOD COUNT (AUTO) 8.2 K/uL (4.8-10.8)
[2023-11-16] MEDS: VANCOMYCIN 1GM/DEXT 5% PREMIX 200 ML IV ONE (06:00)
[2023-11-16] MEDS ORDERED: VANCOMYCIN 1,000 MG VIAL ONE (06:09)
[2023-11-16 06:20] LABS: ALBUMIN 2.4 g/dL (3.4-5.0); ANION GAP 14.3 (8-16); CALCIUM 8.6 mg/dL (8.5-10.1); CARBON DIOXIDE 24.1 mmol/L (21-32); MAGNESIUM 2.2 mg/dL (1.8-2.4); POTASSIUM 3.4 mmol/L (3.5-5.1); TOTAL BILIRUBIN 0.4 mg/dL (0.0-1.0); TOTAL PROTEIN, SERUM 7.2 g/dL (6.4-8.2)
[2023-11-16] MEDS: NACL 0.9% 1,000 ML IV SCH (10:00)
[2023-11-16] MEDS: MIDODRINE 5 MG TAB GT SCH (12:38)
[2023-11-16] MEDS: VANCOMYCIN 500 MG in DEXTROSE 5% 100 ML IV SCH (17:31)
[2023-11-17] VITALS (21 sets, daily range): BP systolic 95–125; BP diastolic 54–87; PULSE 94–138; RESP 17–38; TEMP 97.6–101; O2SAT 96–100
[2023-11-17 06:04] LABS: ANION GAP 9.5 (8-16); CALCIUM 8.3 mg/dL (8.5-10.1); CARBON DIOXIDE 27.2 mmol/L (21-32); CREATININE 0.8 mg/dL (0.6-1.3); MAGNESIUM 2.1 mg/dL (1.8-2.4); PHOSPHORUS 3.2 mg/dL (2.5-4.9); POTASSIUM 3.7 mmol/L (3.5-5.1); TOTAL BILIRUBIN 0.2 mg/dL (0.0-1.0); TOTAL PROTEIN, SERUM 6.2 g/dL (6.4-8.2)
[2023-11-17 06:17] LABS: BASOPHILS % (AUTO) 0.4 % (0.0-2.0); EOSINOPHILS # (AUTO) 0.1 K/uL (0-0.4); EOSINOPHILS % (AUTO) 1.3 % (0.0-4.0); HEMATOCRIT 21.5 % (36-52); HEMOGLOBIN 7.3 g/dL (12.0-18.0); LYMPHOCYTES # (AUTO) 1.1 K/uL (2.0-11.5); LYMPHOCYTES % (AUTO) 14.6 % (20.5-51.1); MEAN CORPUSCULAR HEMOGLOBIN 32 pg (27-31); MEAN CORPUSCULAR HGB CONC 34 g/dL (33-37); MEAN CORPUSCULAR VOLUME 95.1 fL (80-94); MONOCYTES # (AUTO) 0.7 K/uL (0.8-1.0); MONOCYTES % (AUTO) 9.3 % (1.7-9.3); NEUTROPHILS # (AUTO) 5.6 K/uL (1.8-7.7); NEUTROPHILS % (AUTO) 74.4 % (42.2-75.2); PLATELET COUNT (AUTO) 466 K/uL (140-450); RED BLOOD CELL COUNT(AUTO) 2.26 MIL/uL (4.20-6.10); RED CELL DISTRIBUTION WIDTH 13.8 % (11.6-13.7); WHITE BLOOD COUNT (AUTO) 7.5 K/uL (4.8-10.8)
[2023-11-17] MEDS: VANCOMYCIN HCL 750 MG in DEXTROSE 5% 250 ML IV SCH (06:21)
[2023-11-17] MEDS ORDERED: COMMUNICATION ORDER MC SCH (09:00)
[2023-11-17] MEDS: LEVOFLOXACIN 750 MG/D5W PREMIX 150 ML IV SCH (09:44)
[2023-11-17] MEDS: PIPERACILLIN/TAZOBACTAM 4.5 GM in DEXTROSE 5% 100 ML IV SCH (17:59)
== END 2023-11-17 21:46 | DRG 870 ==
LOC: MED 19:14 → MTU 23:33 → MIC 11-07 03:19 → MMU 11-11 19:20 → MIC 11-15 13:27
PROVIDERS: ADMIT Family Medicine; ATTEND Family Medicine
PROC: 5A1955Z Respiratory Ventilation, Greater than 96 Consecutive Hours (ICD-10-PCS; principal; 2023-10-27)
PROC: 02HV33Z Insertion of Infusion Device into Superior Vena Cava, Percutaneous Approach (ICD-10-PCS; 2023-11-07)
PROC: B548ZZA Ultrasonography of Superior Vena Cava, Guidance (ICD-10-PCS; 2023-11-07)
PROC: 0W9930Z Drainage of Right Pleural Cavity with Drainage Device, Percutaneous Approach (ICD-10-PCS; 2023-11-08)
PROC: 0W9930Z Drainage of Right Pleural Cavity with Drainage Device, Percutaneous Approach (ICD-10-PCS; 2023-11-09)
DX: A41.9 Sepsis, unspecified organism (principal); R65.21 Severe sepsis with septic shock; J15.1 Pneumonia due to Pseudomonas; K72.00 Acute and subacute hepatic failure without coma; J96.21 Acute and chronic respiratory failure with hypoxia; J93.0 Spontaneous tension pneumothorax; N17.0 Acute kidney failure with tubular necrosis; G80.0 Spastic quadriplegic cerebral palsy; N39.0 Urinary tract infection, site not specified; Z16.12 Extended spectrum beta lactamase (ESBL) resistance; E87.0 Hyperosmolality and hypernatremia; Z99.11 Dependence on respirator [ventilator] status; Z20.822 Contact with and (suspected) exposure to COVID-19; E05.90 Thyrotoxicosis, unspecified without thyrotoxic crisis or storm; R13.10 Dysphagia, unspecified; G40.909 Epilepsy, unspecified, not intractable, without status epilepticus; J45.909 Unspecified asthma, uncomplicated; Y95 Nosocomial condition; E87.6 Hypokalemia; F79 Unspecified intellectual disabilities; Z93.1 Gastrostomy status; Z93.0 Tracheostomy status; Z88.2 Allergy status to sulfonamides
CPT/HCPCS: 36415; 36600; 71045; 71250; 76700; 80048; 80053; 80202; 81001; 82803; 82948; 83605; 83735; 83880; 84100; 84439; 84443; 84484; 85025; 87040; 87070; 87081; 87086; 87186; 87205; 87420; 89220; 93005; 94002; 94003; 94640; 96361; 96374; 99291; J0610; J0696; J1644; J1885; J1956; J2001; J2060; J2185; J2270; J2543; J2765; J3370; J3480; J3490; J7060; Q0092